=== PATIENT | female | born 1945 | race Caucasian/White ===

== ENCOUNTER 2019-10-17 14:41 | Outpatient (CLI) | payer MEDICARE, SELFPAY ==
--- NOTE | ~2019-10-17 | MM_ITS ---
EXAMINATION: MM screening elva BI w anand HISTORY: Screening mammogram TECHNIQUE: Craniocaudal and mediolateral oblique 3-D tomosynthesis images were obtained and synthetic 2-D images were generated. CAD analysis was submitted and interpreted. COMPARISON: 10/12/2018, 10/06/2017, 10/01/2016 bilateral digital screening mammogram examinations BREAST PARENCHYMAL COMPOSITION: There are scattered areas of fibroglandular density. FINDINGS: Scattered bilateral benign calcifications. There is no evidence of suspicious mass, calcifi cation, or architectural distortion to suggest malignancy in either breast. There has been no suspici ous interval change. IMPRESSION: 1. No mammographic evidence of malignancy. 2. Recommend routine screening mammography in one year. BI-RADS Category 2: Benign finding(s). Reviewed, dictated and finalized at location A. R PV INSTALLER
== END 2019-10-17 14:42 | disposition home or self-care (01) ==
LOC: ANHIMG 14:43
PROVIDERS: PCP Family Medicine; Visit Provider Obstetrics & Gynecology
DX: Z12.31 Encounter for screening mammogram for malignant neoplasm of breast (principal)
CPT/HCPCS: 77063; 77067

== ENCOUNTER → 2019-11-23 15:16 | Outpatient (CLI) | payer MEDICARE, SELFPAY ==
--- NOTE | ~2019-11-23 | XR_ITS ---
EXAMINATION: XR lumbar spine 2-3V DATE: 11/23/2019 15:44 INDICATION: Low back pain TECHNIQUE: Anteroposterior and lateral views of the lumbar spine, and cone-down lateral view of the l umbosacral junction were obtained. COMPARISON: None. FINDINGS: There is no fracture. Bone alignment is normal. There is severe loss of intervertebral disc space height from L2-3 through L5-S1. The vertebral body heights are maintained. Small degenerative osteophytes project from the anterior endplates of multiple vertebral bodies. There is severe lower l umbar facet osteoarthritis. No fracture is identified. There is calcification of the mitral annulus. IMPRESSION: 1. Severe lumbar spondylosis without acute findings. Reviewed, dictated and finalized at location A.
--- NOTE | ~2019-11-23 | XR_ITS ---
EXAMINATION: XR pelvis 1-2V INDICATION: Sacrococcygeal disorders not elsewhere classified TECHNIQUE: AP view of the pelvis is obtained. COMPARISON: None available FINDINGS: There is mild bilateral hip osteoarthritis. Bone alignment is normal. There is no fracture. Multiple phleboliths are noted in the pelvis. There is advanced lower lumbar spondylosis. IMPRESSION: 1. No acute osseous abnormality. Reviewed, dictated and finalized at location A.
== END ==
PROVIDERS: PCP Family Medicine; Visit Provider Family Medicine
DX: M54.5 Low back pain (principal); M53.3 Sacrococcygeal disorders, not elsewhere classified; M47.816 Spondylosis without myelopathy or radiculopathy, lumbar region
CPT/HCPCS: 72100; 72170

== ENCOUNTER 2020-10-24 13:48 | Outpatient (CLI) | payer MEDICARE, SELFPAY ==
--- NOTE | ~2020-10-24 | MM_ITS ---
EXAMINATION: MM screening elva BI w anand HISTORY: Screening TECHNIQUE: Craniocaudal and mediolateral oblique 3-D tomosynthesis images were obtained and synthetic 2-D images were generated. CAD analysis was submitted and interpreted. COMPARISON: Comparison to multiple prior studies sequentially, with oldest reviewed study dated 09/19. BREAST PARENCHYMAL COMPOSITION: There are scattered areas of fibroglandular density. FINDINGS: There is no evidence of suspicious mass, calcification, or architectural distortion to sugg est malignancy in either breast. There has been no suspicious interval change. IMPRESSION: 1. No mammographic evidence of malignancy. 2. Recommend routine screening mammography in one year. BI-RADS Category 1: Negative Reviewed, dictated and finalized at location A. ERTY MANAGEMENT INTERN
== END 2020-10-24 13:49 | disposition home or self-care (01) ==
LOC: ANHIMG 13:53
PROVIDERS: PCP Family Medicine; Visit Provider Obstetrics & Gynecology
DX: Z12.31 Encounter for screening mammogram for malignant neoplasm of breast (principal)
CPT/HCPCS: 77063; 77067

== ENCOUNTER 2020-11-06 08:50 | Outpatient (CLI) | payer MEDICARE, SELFPAY ==
--- NOTE | 2020-11-06 08:56 | ECHO_ITS ---
Patient Info Name: Trisha Sparrow Age: 75 years : 1945 Gender: Female Ht: 63 in Wt: 167 lbs BSA: 1.86 m2 BP: 131 / 92 mmHg Exam Date: 11/06/2020 9:36 AM Exam Location: [facility] Patient Status: Outpatient Admit Date: 11/06/2020 Staff Ordering Physician: Mejia Castro DO Tire Shop Mechanic: Lucero Glass RDCS Attending Provider: Mejia Castro DO Exam Type: CA echo doppler color flow Study Info Complete two-dimensional, color flow and Doppler transthoracic echocardiogram is performed. Summary 1. Complete two-dimensional, color flow and Doppler transthoracic echocardiogram is performed. 2. Left ventricular chamber dimension is normal. 3. Left ventricular systolic function is normal, estimated at 60-65%. 4. The left ventricular diastolic function is abnormal. 5. E/e' 15 is elevated. 6. Left atrial chamber dimension is severely enlarged. 7. There is mild aortic valve sclerosis. 8. The mitral valve has moderately calcified annulus. 9. There is mild to moderate mitral valve regurgitation. 10. There is mild to moderate tricuspid valve regurgitation. 11. No pulmonary hypertension, estimated pulmonary arterial systolic pressure is 38 mmHg. Left Ventricle E/e' 15 is elevated. Left ventricular chamber dimension is normal. Left ventricular systolic function is normal, estimated at 60-65%. The left ventricular diastolic function is abnormal. Right Ventricle Right ventricular chamber dimension is normal. Right ventricular systolic function is normal. Left Atria Left atrial chamber dimension is severely enlarged. Right Atria Right atrial chamber dimension is normal. Aortic Valve The aortic valve is trileaflet. There is mild aortic valve sclerosis. There is no aortic valve stenosis. There is no aortic valve regurgitation. Pulmonic Valve There is no pulmonic regurgitation. Mitral Valve The mitral valve has moderately calcified annulus. There is no mitral valve stenosis. There is mild to moderate mitral valve regurgitation. Tricuspid Valve There is mild to moderate tricuspid valve regurgitation. No pulmonary hypertension, estimated pulmonary arterial systolic pressure is 38 mmHg. Pericardium/Pleural There is no pericardial effusion. Inferior Vena Cava Normal inferior vena cava with >50% collapse upon inspiration consistent with normal right atrial pressure, 5 mmHg. Aorta The aortic root size at the sinus of Valsalva is normal. Left Ventricular Outflow Tract Name Value Normal LVOT 2D LVOT Diameter 1.6 cm LVOT Doppler LVOT Peak Gradient 2 mmHg LVOT Mean Gradient 1 mmHg LVOT VTI 12 cm LVOT VTI/AV VTI Ratio 0.5 LVOT Stroke Volume 22 ml LVOT CO 5.0 l/min LVOT CI 2.7 l/min/m2 Pulmonic Valve Name Value Normal
== END 2020-11-06 08:51 | disposition home or self-care (01) ==
PROVIDERS: PCP Family Medicine; Visit Provider Internal Medicine Cardiovascular Disease
DX: I50.40 Unspecified combined systolic (congestive) and diastolic (congestive) heart failure (principal); I34.0 Nonrheumatic mitral (valve) insufficiency; I36.1 Nonrheumatic tricuspid (valve) insufficiency
CPT/HCPCS: 93306

== ENCOUNTER 2021-10-29 16:03 | Outpatient (CLI) | payer MEDICARE, SELFPAY ==
--- NOTE | ~2021-10-29 | MM_ITS ---
EXAMINATION: MM screening elva BI w anand HISTORY: Screening mammogram TECHNIQUE: Craniocaudal and mediolateral oblique 3-D tomosynthesis images were obtained and synthetic 2-D images were generated. CAD analysis was submitted and interpreted. COMPARISON: October 24, 2020, October 17, 2019, October 12, 2018 bilateral screening mammogram exam inations BREAST PARENCHYMAL COMPOSITION: There are scattered areas of fibroglandular density. FINDINGS: Approximately 3.9 x 7.5 mm irregular opacity at the medial aspect of the left breast at mid depth on craniocaudal view. Diagnostic left mammogram is recommended, with ultrasound if required. Otherwise there is no evidence of suspicious mass, calcification, or architectural distortion to sugg est malignancy. There has been no other suspicious interval change. IMPRESSION: 1. Asymmetric irregular opacity at medial left breast at mid depth on CC view 2. Diagnostic left mammogram is recommended, with ultrasound if required BI-RADS Category 0: Incomplete: Needs additional imaging evaluation. Reviewed, dictated and finalized at location A. LIDDER
== END 2021-10-29 16:04 | disposition home or self-care (01) ==
LOC: ANHIMG 16:05
PROVIDERS: PCP Family Medicine; Visit Provider Obstetrics & Gynecology
DX: Z12.31 Encounter for screening mammogram for malignant neoplasm of breast (principal); R92.8 Other abnormal and inconclusive findings on diagnostic imaging of breast
CPT/HCPCS: 77063; 77067

== ENCOUNTER 2021-11-19 12:50 | Outpatient (CLI) | payer MEDICARE, SELFPAY ==
--- NOTE | ~2021-11-19 | MMUS_ITS ---
EXAMINATION: MM diagnostic elva LT w anand, US breast LT limited HISTORY: Left breast asymmetry on screening mammogram TECHNIQUE: Additional 3-D tomosynthesis images of the left breast were performed and synthetic 2-D im ages were generated. CAD analysis was submitted and interpreted. High resolution limited left breast ultrasound was performed. COMPARISON: 10/29/2021, 10/24/2020, 10/17/2019, 10/12/2018, 10/06/2017 FINDINGS: MAMMOGRAPHIC FINDINGS: There is a return to baseline fibroglandular appearance with spot compression of the left breast in t he area questioned on screening mammogram. ULTRASOUND: There is a 4 mm oval, circumscribed, parallel, hypoechoic mass with no internal vascularity and mild posterior acoustic shadowing at the 9:30 location 4 cm from the nipple. IMPRESSION: 1. Possible changes of the inner left breast related to prior excisional biopsy. 2. Recommend 6 month follow-up left diagnostic mammogram and ultrasound. BI-RADS category 3, probably benign findings. Reviewed, dictated and finalized at location A. IMPRESSION: 1. Possible changes of the inner left breast related to prior excisional biopsy . 2. Recommend 6 month follow-up left diagnostic mammogram and ultrasound. BI-RADS category 3, probably benign findings.
== END 2021-11-19 12:51 | disposition home or self-care (01) ==
PROVIDERS: PCP Family Medicine; Visit Provider Obstetrics & Gynecology
DX: R92.8 Other abnormal and inconclusive findings on diagnostic imaging of breast (principal)
CPT/HCPCS: 76642; 77061; 77065; G0279

== ENCOUNTER 2022-02-13 13:04 | Outpatient (CLI) | payer MEDICARE, SELFPAY | END 2022-02-13 13:05 | disposition home or self-care (01) | LOC: ANHAUDIO 13:05 | PROVIDERS: PCP Family Medicine; Visit Provider Family Medicine | DX: H90.3 Sensorineural hearing loss, bilateral (principal) | CPT/HCPCS: 92557; 92567 ==

== ENCOUNTER 2022-04-25 08:18 | Outpatient (CLI) | payer MEDICARE, SELFPAY ==
--- NOTE | ~2022-04-25 | US_ITS ---
US art doppler w press LE BI INDICATION: Peripheral vascular disease TECHNIQUE: Segmental pressures and plethysmographic and Doppler waveforms of the brachial and lower e xtremity arteries were obtained. COMPARISON: None. FINDINGS: Right and left brachial artery pressures of 150 to mm Hg and 157 mm Hg, respectively, are concordant (normal difference <= 30 mmHg). The right ankle-brachial index (PUNEET) is 1.04 (normal >= 0.9-1.0). The right great toe-brachial index (TBI) is 0.56 (normal >= 0.60). The left PUNEET is 1.11. The left TBI is 0.77. IMPRESSION: 1. Mildly diminished right toe brachial index measuring 0.56, consistent with mild peripheral arteria l disease. 2: Normal left ankle and toe brachial indices. Reviewed, dictated and finalized at location B. IMPRESSION: 1. Mildly diminished right toe brachial index measuring 0.56, consistent with m ild peripheral arterial disease. 2: Normal left ankle and toe brachial indices.
== END 2022-04-25 08:19 | disposition home or self-care (01) ==
PROVIDERS: PCP Family Medicine; Visit Provider Family Medicine
DX: I73.9 Peripheral vascular disease, unspecified (principal)
CPT/HCPCS: 93923

== ENCOUNTER 2022-06-04 09:53 | Outpatient (NON) | payer MEDICARE, SELFPAY | END 2022-06-04 09:54 | disposition home or self-care (01) | LOC: ANHLAB 09:54 | PROVIDERS: PCP Family Medicine; Visit Provider Nurse Practitioner Family | DX: B83.9 Helminthiasis, unspecified (principal) | CPT/HCPCS: 87177; 87209 ==

== ENCOUNTER 2022-06-17 11:00 | Outpatient (RCR) | payer MEDICARE, SELFPAY ==
--- NOTE | 2022-05-20 10:02 | PTOPEVAL1 ---
Assessment and note entered by Kelly Amin, PT, DPT Evaluation Information Assessment Status Evaluation Diagnosis L hip and lower back pain Onset chronic Subjective Information Pt reports pain in the L anterior groin pain. Pt states this has been going on for years and it does not feel like it is getting much worse. Pt states she can walk for about 2 mins, but this is limited by SOB rather than her hip. Pt states can cannot stand long enough to cook a meal but this is limited by LE swelling and they turn purple . Reported Pain Level Pain Score 0: Self Report Assessment PT Clinical Summary Trisha is a 77 y/o female who presents to therapy today for her initial evaluation with a diagnosis of L hip and lower back pain. Today she several factors that limit her just as much as her hip, if not more, including a-fib, peripheral neuropathy , and a skin condition that is not diagnosis. Today she demonstrates decreased hip ROM and decreased strength alva, the L > R. She demonstrates a L sided antalgic gait as well as a decreased gait speed, and stride length. Skilled physical therapy services are indicated to address the deficits noted above, to limit pain, and to improve functional mobility. Plan of Care Interventions Gait Training,Hot Pack/Cold Pack,Manual Therapy, Neuro Re-education,Patient/Caregiver Education, Therapeutic Activities,Therapeutic Exercise PT Services Indicated Yes Treatment Frequency and 1x/wk for 4 wks Duration These treatments will address the objective and functional deficits as defined above. The patient will be advanced safely and appropriately in order for the patient to progress towards his/her prior level of function. Additional exercises will be introduced and as well as a comprehensive home exercise program upon discharge, if needed, ?to ensure carryover of functional gains achieved in the clinic. This treatment plan has been reviewed and agreement upon by the patient.
--- NOTE | 2022-05-27 13:20 | PCPTNOTE ---
Patient did not show up for scheduled appointment this date. Called Pt's cell phone and left voicemail about missed appointment. Informed Pt of upcoming appointment on 06/04/22 @17:00.
--- NOTE | 2022-06-04 17:23 | PCPTNOTE ---
Patient did not show up for scheduled appointment this date. Called and left voicemail about missed appointment. Reminded Pt of upcoming appointment on next Thursday06/10/22 @ 15:30. Informed Pt this is her second N/S and we will be discharging Pt if she N/S's again per our N/S policy.
--- NOTE | 2022-06-10 16:02 | PCPTNOTE ---
Patient did not show up for scheduled appointment this date. Called and spoke to patient's and they thought her appointment was tomorrow.
--- NOTE | 2022-06-17 11:54 | PTOPDC ---
Assessment and note entered by Kelly Amin, PT, DPT Evaluation Information Assessment Status Evaluation Diagnosis L hip and lower back pain Onset chronic Subjective Information Pt states she is doing her exercises once a day. Pt states her hip is feeling better, she states sometimes she wakes up and there is no pain at all . Pt reports 50% improvement in overall symptoms. Reported Pain Level Pain Score 4: Self Report Assessment PT Clinical Summary Trisha presents to therapy today for her progress report following participation in her HEP. She no called, no showed 3 of 3 scheduled appointments in her prior POC. Today she demonstrates slow improvements in her hip strength and ROM. She demonstrates a decreased gait speed compared to her initial visit but attributes this to her heart condition. She was instructed in additional exercises this date and was told to perform these daily. She will be discharged at this time d/t poor attendance. Plan of Care Interventions Gait Training,Hot Pack/Cold Pack,Manual Therapy, Neuro Re-education,Patient/Caregiver Educati, Therapeutic Activities,Therapeutic Exercise Treatment Frequency and to be discharged Duration
== END 2022-06-17 15:04 | disposition home or self-care (01) ==
LOC: ANHPT 11:00
PROVIDERS: PCP Family Medicine; Referring Provider Orthopaedic Surgery; Visit Provider Orthopaedic Surgery
DX: M25.552 Pain in left hip (principal); M54.50 Low back pain, unspecified
CPT/HCPCS: 97110; 97112; 97161; 99199

== ENCOUNTER 2022-06-23 13:58 | Outpatient (CLI) | payer MEDICARE, SELFPAY ==
--- NOTE | ~2022-06-23 | MMUS_ITS ---
EXAMINATION: MM diagnostic elva LT w anand, US breast LT limited HISTORY: Follow-up left breast mass TECHNIQUE: Additional 3-D tomosynthesis images of the left breast were performed and synthetic 2-D im ages were generated. CAD analysis was submitted and interpreted. High resolution Limited left breast ultrasound was performed. COMPARISON: Comparison to multiple prior studies sequentially, with oldest reviewed study dated 10/06. BREAST PARENCHYMAL COMPOSITION: Breast composed of scattered areas of fibroglandular density FINDINGS: MAMMOGRAPHIC FINDINGS: There are no suspicious masses, calcifications or architectural distortion in the left breast to sugg est malignancy. ULTRASOUND: Limited left breast ultrasound: At 10:00, 5 cm from the nipple, there is a round hypoechoic mass with posterior shadowing measuring 4 x 4 x 3 mm, stable compared with prior study. There is a 2 mm cyst a t 8:00, 10 cm from the nipple. IMPRESSION: 1. Stable probable benign left breast mass at 10:00, 5 cm from the nipple measuring 4 mm maximum dime nsion. 2. Recommend 6 month follow-up Limited left breast ultrasound and diagnostic bilateral mammogram. BI-RADS category 3, probably benign findings. Reviewed, dictated and finalized at location A. IMPRESSION: 1. Stable probable benign left breast mass at 10:00, 5 cm from the nipple measu ring 4 mm maximum dimension. 2. Recommend 6 month follow-up Limited left breast ultrasound and diagnostic bi lateral mammogram. BI-RADS category 3, probably benign findings.
== END 2022-06-23 13:59 | disposition home or self-care (01) ==
LOC: ANHIMG 13:59
PROVIDERS: PCP Family Medicine; Visit Provider Obstetrics & Gynecology
DX: R92.8 Other abnormal and inconclusive findings on diagnostic imaging of breast (principal)
CPT/HCPCS: 76642; 77061; 77065; G0279

== ENCOUNTER 2022-07-11 12:03 | Outpatient (CLI) | payer MEDICARE, SELFPAY ==
[2022-07-20 19:38] LABS: Calprotectin, Stool 11 mcg/g
== END 2022-07-11 12:04 | disposition home or self-care (01) ==
PROVIDERS: PCP Family Medicine; Visit Provider Nurse Practitioner Family
DX: R19.7 Diarrhea, unspecified (principal)
CPT/HCPCS: 83993; 87045; 87269; 87427

== ENCOUNTER 2022-11-18 03:59 | Inpatient (IN) | payer MEDICARE, SELFPAY ==
[2022-11-18] VITALS (19 sets, daily range): BP systolic 106–148; BP diastolic 63–101; PULSE 88–132; RESP 12–22; TEMP 36–37; O2SAT 95–100; BMI 27.8
--- NOTE | ~2022-11-18 | XR_ITS ---
EXAMINATION: XR chest 1V portable INDICATION: Cough, COVID 19 positive TECHNIQUE: Portable AP chest at 0925 hours COMPARISON: 11/18/2022 FINDINGS: The lungs are free of acute opacities. No pleural effusion or pneumothorax. The heart size is normal. There is calcification of the mitral annulus. IMPRESSION: 1. No acute cardiopulmonary abnormality. Reviewed, dictated and finalized at location L.
--- NOTE | ~2022-11-18 | CT_ITS ---
Non-contrast Head CT History: Head injury Technique: Axial non-contrast imaging of the brain was performed. Dose reduction technique was used on this scan by utilizing automated exposure control and iterative reconstruction technique. The dose -length product (DLP) was 605.33 mGy-cm. Findings: There is no evidence of intracranial hemorrhage, mass lesion, or acute infarct. There is c hronic encephalomalacia in the high right parietal lobe. Probable small focal chronic infarct in the left cerebellum.. The ventricles and subarachnoid spaces are normal in size. The calvarium appears normal. The visualized paranasal sinuses and mastoid air cells are clear. Impression: No acute abnormality seen. Chronic infarcts in the right parietal lobe and left cerebellum. Reviewed, dictated and finalized at [facility]. Impression: No acute abnormality seen. Chronic infarcts in the right parietal lobe and left cerebellum.
--- NOTE | ~2022-11-18 | CT_ITS ---
Noncontrast CT scan of the cervical spine Technique: Multiple contiguous axial [address] images of the cervical spine were obtained and rec onstructed in 2D sagittal and coronal planes on the acquisition scanner. Dose reduction technique was used on this scan by utilizing automated exposure control, adjustment of the mA and/or kV according to patient size. Clinical History: Pain Findings: No fracture identified. Minimal grade 1 anterolisthesis of C4 over C5 noted. There is advan rodrick degenerative disc narrowing at C5-C6, C6-C7, and C7-T1, with uncovertebral degenerative changes a t these levels. There is fusion of the right C2-C3 facet joint. There are extensive facet joint degen erative changes throughout the remainder of the cervical spine. There is significant left neural fora [place]renton narrowing at C3-C4. There is bilateral neural foraminal narrowing at C4-C5, C5-C6, and C6-C7. T here is probable mild central canal stenosis at C5-C6. No prevertebral soft tissue swelling. There are multiple nodules in the visualized lung apices, largest at the left lung apex measuring 8 m m in diameter. Impression: No fracture. Minimal grade 1 anterolisthesis of C4 over C5. Advanced degenerative spondylosis, as detailed above. Multiple nodules at the lung apices, as detailed above, nonspecific. Consider follow-up dedicated taco st CT to more completely evaluate the chest. Otherwise, according to Fleischner Society criteria, for a low-risk patient, follow-up CT scan at 3-6 months recommended, then consider 18-24 month follow-up CT. For a high-risk patient, follow-up CT scans at 3-6 months and 18-24 months are recommended. Reviewed, dictated and finalized at location . Impression: No fracture. Minimal grade 1 anterolisthesis of C4 over C5. Advanced degenerative spondylosis, as detailed above. Multiple nodules at the lung apices, as detailed above, nonspecific. Consider f ollow-up dedicated chest CT to more completely evaluate the chest. Otherwise, a ccording to Fleischner Society criteria, for a low-risk patient, follow-up CT s can at 3-6 months recommended, then consider 18-24 month follow-up CT. For a hi gh-risk patient, follow-up CT scans at 3-6 months and 18-24 months are recommen ded.
--- NOTE | ~2022-11-18 | XR_ITS ---
Left ankle Technique: AP, oblique, and lateral views were obtained. Clinical History: Pain Findings: There is an oblique, traumatic, fracture of the distal fibular shaft, with the fracture freddy tered approximately 6.3 cm proximal to the tip of the lateral malleolus. There is displacement up to approximately 9 mm. There is a transverse traumatic fracture of the medial malleolus, with displaceme nt by up to at least approximately 1.5 cm. There is apparent marked widening of the ankle mortise ant eromedially, best evident on the oblique view. Questionable very subtle posterior malleolus fracture. There is diffuse soft tissue swelling about the ankle, especially anteriorly. Impression: Significantly displaced fractures of the medial malleolus and distal fibular shaft, as detailed above . Questionable subtle posterior malleolus fracture. Consider CT to better confirm or exclude posterior malleolus fracture as indicated. Marked widening of the ankle mortise anteromedially, best evident on oblique view. Reviewed, dictated and finalized at location . Impression: Significantly displaced fractures of the medial malleolus and distal fibular sh aft, as detailed above. Questionable subtle posterior malleolus fracture. Consider CT to better confirm or exclude posterior malleolus fracture as indicated. Marked widening of the ankle mortise anteromedially, best evident on oblique vi ew.
--- NOTE | ~2022-11-18 | XR_ITS ---
EXAMINATION: XR surgery orthopedic DATE: 11/20/2022 14:55 INDICATION: ORIF left ankle fracture TECHNIQUE: 3 fluoroscopic images of the left ankle were obtained during procedure performed by Dr. Lyle carrington. Radiologist was not present for the imaging or procedure. The amount of fluoroscopy time used dur ing this procedure was 0.6 minutes. COMPARISON: 11/18/2022 FINDINGS: Interval reduction and internal lateral plate and screw fixation of an oblique fracture of the distal left fibular metadiaphysis which is in near-anatomic alignment. Mildly comminuted transverse fractur e of the medial malleolus remains unfixed and with mild residual distraction. Ankle mortise remains c ongruent with mild joint space narrowing at the tibiotalar articulation. IMPRESSION: 1. Near-anatomic alignment post reduction and lateral plate and screw fixation of fractures of the di stal left fibular metadiaphysis. 2. Mild residual distraction of an unfixed mildly comminuted fracture of the medial malleolus. Reviewed, dictated and finalized at location L. IMPRESSION: 1. Near-anatomic alignment post reduction and lateral plate and screw fixation of fractures of the distal left fibular metadiaphysis. 2. Mild residual distraction of an unfixed mildly comminuted fracture of the me dial malleolus.
--- NOTE | ~2022-11-18 | XR_ITS ---
Portable chest x-ray Comparison: 09/30/2010 Clinical History: Cough Findings: Lungs are clear, without focal consolidation or pleural effusion. Cardiomediastinal silho uette is stable. Extensive mitral annular calcifications noted. Bones and soft tissues are unremarkab le. Impression: Clear lungs. Reviewed, dictated and finalized at location . Impression: Clear lungs.
--- NOTE | ~2022-11-18 | CT_ITS ---
EXAMINATION:CT diagnostic chest wo con DATE: 11/19/2022 11:31 INDICATION: Lung nodules. TECHNIQUE: Computed tomography (CT) of the chest was performed without intravenous contrast. Automate d exposure control and iterative reconstruction technique were employed. The dose-length product (DLP ) was 176.30 mGy-cm. COMPARISON: CT cervical spine 11/18/2022 FINDINGS: There is mild atelectasis bilaterally. There are clusters of nodules at the lung apices atif suring up to 9 mm on the left. Calcified bilateral pulmonary nodules are consistent with old granulom atous disease. No pleural effusion. The heart size is normal. There are coronary artery calcification s. There are no pathologically enlarged lymph nodes. There is severe cervical and thoracic spondylosi s. There is mild anterior wedging of T2 vertebral body, likely chronic. There is a compression fractu re of T9 with 1/5 loss of height. There is a compression fracture of T10 with less than 1/5 loss of h eight. There is a compression fracture of L1 with 2/5 loss of height. IMPRESSION: 1. Pulmonary nodules at the lung apices, most likely granulomatous disease. Noncontrast low-dose ches t CT is recommended in 3 months. 2. Compression fractures of T9, T10, and L1, likely acute or subacute. Reviewed, dictated and finalized at location A. IMPRESSION: 1. Pulmonary nodules at the lung apices, most likely granulomatous disease. Non contrast low-dose chest CT is recommended in 3 months. 2. Compression fractures of T9, T10, and L1, likely acute or subacute.
--- NOTE | 2022-11-18 04:15 | ECG_ITS ---
Measurements Intervals [employer] Rate: 124 P: GA: 0 QRS: 28 QRSD: 86 T: 53 QT: 326 QTc: 470 Interpretive Statements ATRIAL FIBRILLATION WITH RAPID VENTRICULAR RESPONSE VENTRICULAR PREMATURE COMPLEXES EARLY PRECORDIAL R/S TRANSITION BORDERLINE ST-T WAVE ABNORMALITY- ANTEROLAT/HIGH LAT LEADS BASELINE ARTIFACT- I, III, AVL ABNORMAL ECG COMPARED TO ECG 06/28/2019 12:27:56 NO SIGNIFICANT CHANGES Electronically Signed On 11-18-2022 6:40:40 CDT by Mejia Castro D.O.
[2022-11-18] MEDS: METOPROLOL TARTRATE INJ 5 MG/5 ML VIAL IV PUSH (04:34)
[2022-11-18 04:41] LABS: Basophils Percent Auto 0.2 % (0.2-1.2); Hemoglobin 15.2 g/dL (12.0-15.0); Immature Granulocyte Absolute 0.05 K/mm3 (0.00-0.031); Immature Granulocyte Percent A 0.5 % (0-0.5); Lymphocytes Absolute Auto 0.38 K/mm3 (0.9-3.2); Lymphocytes Percent Auto 3.5 % (18.3-44.2); Mean Corpuscular HGB Conc 34.5 g/dl (32-36); Mean Corpuscular Hemoglobin 34.8 pg (26-34); Mean Corpuscular Volume 100.7 fl (80-100); Mean Platelet Volume 9.9 fl (7.4-10.4); Monocytes Absolute Auto 0.8 K/mm3 (0.1-0.6); Monocytes Percent Auto 7.5 % (2.6-8.5); Neutrophils Absolute Auto 9.5 K/mm3 (1.3-6.7); Neutrophils Percent Auto 88.3 % (45.5-73.1); Platelet Count Result 201 k/mm3 (150-375); Red Blood Count 4.37 M/mm3 (4.2-5.4); Red Cell Distribution Width 11.9 % (11.5-14.5); White Blood Count 10.8 K/mm3 (4.5-10.0)
[2022-11-18 04:53] LABS: INR 1.2; Prothrombin Time 15.2 Seconds (11.1-14.7)
[2022-11-18 04:54] LABS: Partial Thromboplastin Time 31.6 SECONDS (22.3-36.8)
[2022-11-18 04:55] LABS: Alanine Aminotransferase 31 U/L (6-35); Albumin Level 4.4 g/dL (3.5-5.1); Alkaline Phosphatase 108 U/L (38-126); Anion Gap 10 mmol/L (8-16); Aspartate Amino Transferase 70 U/L (14-36); Bilirubin,Total 0.9 mg/dL (0.2-1.3); Blood Urea Nitrogen 17 mg/dL (7-17); Carbon Dioxide 22 mmol/L (22-30); Chloride 101 mmol/L (98-107); Estimated Glomerular Filt Rate 40; Glucose 229 mg/dL (65-110); Magnesium 1.5 mg/dL (1.6-2.3); Potassium 3.7 mmol/L (3.4-5.0); Sodium 133 mmol/L (137-145)
[2022-11-18 04:58] LABS: Anisocytosis 1+ (NORMAL); Hypochromasia 1+ (NORMAL); Platelet Estimate Adequate (Adequate); Schistocytes None Seen (NORMAL)
[2022-11-18 05:07] LABS: NT Pro B Type Natriuretic Pept 1920 pg/mL (19.9-100); Troponin I 0.024 ng/mL (0.000-0.034)
--- NOTE | 2022-11-18 05:26 | ED.GENADULT ---
HPI - General Adult General Chief complaint: Fall Stated complaint: GLV, AFIB/RVR Time Seen by Provider: 11/18/22 04:08 History of Present Illness HPI narrative: 77-year-old female who presents the emergency department with chief complaint of fall. Patient was found on the ground with swelling in her left ankle the patient is on Xarelto which she takes for atrial fibrillation. The patient currently pain bilateral ankles patient denies headache or known head injury but is unsure 100%. Patient denies nausea vomiting patient does report that her heart is beating fast and feels as though her A-fib is acting up. Related Data Home Medications Medication Instructions Recorded Confirmed cyclosporine 0.05 % eye drops in a 1 drop ophthalmic (eye) Q12H 07/19/19 10/31/22 dropperette (Restasis) fexofenadine 60 mg tablet 30 mg PO Q12H 07/19/19 10/31/22 nitroglycerin 0.4 mg sublingual 0.4 mg sublingual Q5M PRN 07/19/19 10/31/22 tablet Allergies Allergy/AdvReac Type Severity Reaction Status Date / Time amoxicillin Allergy Intermediate Rash Verified 11/18/22 04:35 clavulanic acid Allergy Intermediate Rash Verified 11/18/22 04:35 erythromycin base Allergy Unknown Unknown Verified 11/18/22 04:35 meperidine Allergy Unknown Unknown Verified 11/18/22 04:35 Penicillins Allergy Unknown Unknown Verified 11/18/22 04:35 Review of Systems Review of Systems: A 10 system review of systems was completed on the patient and is negative except for what is stated in the HPI. Nursing and ancillary documentation was reviewed. [facility] Past Medical History Medical History Altered bowel habits Arthralgia of hands, bilateral Bilateral carotid artery disease Depression Essential hypertension Heart disease Localized edema Lung nodule Lymphedema Obesity (BMI 30-39.9) Other and unspecified hyperlipidemia Other hyperlipidemia Peripheral neuropathy PVD (peripheral vascular disease) Shortness of breath Stroke Tenesmus (rectal) Surgical History Surgical History H/O: hysterectomy History of adenoidectomy History of back surgery History of bilateral knee replacement (~2002) jb 2002 History of hand surgery Family History Family History Mother Diabetes mellitus Cerebrovascular accident Family history of dementia, Onset Age: 80 Father Family history of congestive heart failure, Onset Age: 76 Other Family history of arthritis Family history of coronary artery disease Family history of gout Family history of kidney stones Family history of mental disorder Hypertension Social History Social History Smoking status: Never smoker Second hand tobacco smoke exposure: No Alcohol intake: never Substance use: never Substance use type: does not use Lack of Transportation: No Lack of Food: Never True Current Housing: I Have Housing Concerned About Future Housing: No Difficulty Paying Gas/Electric Bills: No Difficulty Paying for Meds: No Currently Unemployed: No Education: Master's Degree or Higher Difficulty w/ Childcare or Family Care: No Living arrangements: with family Occupation/Education: retired Gender identity (if verbalized by the patient): Female Sexual Orientation (if Verbalized by the Patient): Straight or Heterosexual Spiritual care concerns: No Agree to blood products: Yes Exam Narrative: GENERAL: Well-appearing, well-nourished, and in no acute distress. HEAD: Normocephalic, atraumatic. EYES: PERRLA and EOMI. ENT: Nares clear, no rhinorrhea or epistaxis. Mucous membranes moist. NECK: Supple. CHEST: Clear to auscultation. No respiratory distress. HEART: Tachycardic irregular rate and rhythm. No murmur heard.
[2022-11-18] MEDS: dilTIAZem HCl INJ 25 MG/5 ML VIAL 20 MG IV PUSH (05:55)
[2022-11-18] MEDS: MAGNESIUM SULF 2 GM/WATER 50ML 2 GM/50 ML BAG IVPB (05:56)
[2022-11-18] MEDS: dilTIAZem 100 MG/100 ML 100 MG/100 ML BAG IV CONT (05:58)
--- NOTE | 2022-11-18 06:35 | PC.NURSE ---
PT. R arm became flush, and warm to touch after Cardizem drip. EVELYN RN to stop diltiazem due to pt. possible reaction. pt. rate has been controlled at this time as well
--- NOTE | 2022-11-18 07:31 | PC.NURSE ---
Attempted to call report to IMU.
--- NOTE | 2022-11-18 07:34 | PC.NURSE ---
Report called to SLY Aranda.
--- NOTE | 2022-11-18 07:43 | PC.NURSE ---
Three hour troponin drawn and sent.
--- NOTE | 2022-11-18 08:15 | ADMGEN ---
This patient, Trisha Sparrow, was admitted to IMU Room 200-01. Patient/family oriented to hospital policies and general routines including ID bracelet, bed and alarms, visiting hours, pain management, procedures, bathroom and other care routines, personal items, smoking policy, room service/diet, and visiting hours. Information on how to activate the Rapid Response Team has been discussed. Patient/Family are encouraged to report perceived risks to care and to ask questions if they do not understand what they are told or what they should do.
[2022-11-18 08:20] LABS: Troponin I 0.036 ng/mL (0.000-0.034)
[2022-11-18] MEDS: SODIUM CHLORIDE 0.9% IV 1,000 ML 125 ML IV CONT (09:58)
--- NOTE | 2022-11-18 11:42 | PM.IMHP ---
H&P: HPI History of Present Illness Date/Time: 11/18/22 11:42 Chief Complaint: Status post fall Narrative: 77-year-old female with past medical history significant for coronary artery disease, peripheral vascular disease, bilateral carotid artery disease status post R. CEA, AFib on Xarelto, neuropathy, hyperlipidemia, hypertension and a history of a CVA is presenting status post fall. The patient states that she was taking a shower and seated on her shower chair. The next thing she remembers is waking up on the ground in an odd position with her legs bunched up against the wall. She then crawled over to the bathroom door to let her in so he could help her get up. They then called EMS to take her to the hospital. In the ER, she was found to be in AFib with RVR and started on a Cardizem bolus + drip. This was weaned off shortly after. X-rays of her lower extremities showed a fracture of the tibia and fibula on the left. Right ankle x-rays nonacute. Upon chart review, she was seen by Cardiology October 31, 2022 for worsening orthopnea as well as dyspnea on exertion. She was found to be euvolemic in the office and no changes were made to her medication regimens. 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, controlled, with complications Dry eyes due to decreased tear production Essential hypertension Excoriation (skin-picking) disorder Heart disease Hypothyroidism, unspecified Left leg pain Localized edema Lung nodule Lymphedema Mixed hyperlipidemia Obesity (BMI 30-39.9) Other and unspecified hyperlipidemia Other hyperlipidemia Peripheral neuropathy Peripheral neuropathy, idiopathic PVD (peripheral vascular disease) Shortness of breath Stroke Tenesmus (rectal) Vitamin D deficiency Surgical History Surgical History H/O: hysterectomy History of adenoidectomy History of back surgery History of bilateral knee replacement (~2002) jb 2002 History of hand surgery Family History Family History Mother Diabetes mellitus Cerebrovascular accident Family history of dementia, Onset Age: 80 Father Family history of congestive heart failure, Onset Age: 76 Other Family history of arthritis Family history of coronary artery disease Family history of gout Family history of kidney stones Family history of mental disorder Hypertension Social History Social History Smoking status: Never smoker Second hand tobacco smoke exposure: No Alcohol intake: never Substance use: never Substance use type: does not use Lack of Transportation: No Lack of Food: Never True Current Housing: I Have Housing Concerned About Future Housing: No Difficulty Paying Gas/Electric Bills: No Difficulty Paying for Meds: No Currently Unemployed: No Education: Master's Degree or Higher Difficulty w/ Childcare or Family Care: No Living arrangements: with family Occupation/Education: retired Gender identity (if verbalized by the patient): Female Sexual Orientation (if Verbalized by the Patient): Straight or Heterosexual Spiritual care concerns: No Agree to blood products: Yes Meds Home Medications and Allergies Home Medications Medication Instructions Recorded Confirmed Type atorvastatin 20 mg tablet 20 mg PO DAILY #90 tabs 03/
[2022-11-18] MEDS: FUROSEMIDE 40 MG TABLET PO (13:09)
[2022-11-18] MEDS: METOPROLOL SUCCINATE EXT REL 50 MG TABCR PO (13:10)
[2022-11-18 13:24] LABS: Troponin I 0.045 ng/mL (0.000-0.034)
[2022-11-18 15:42] LABS: Appearance Urine Clear (Clear); Bacteria Urine None Seen /hpf; Bilirubin Urine Negative (Negative); Blood Urine Trace (Negative); Color Urine Yellow (Yellow); Glucose Urine UA Negative (Negative); Ketones Urine Negative (Negative); Leukocyte Esterase Ur Negative LEU/UL (Negative); Nitrate Urine Negative (Negative); Protein Urine 1+ mg/dL (Negative); RBC Urine 0-2 /hpf (0-2); Specific Grav Ur 1.017 (1.001-1.035); Squamous Epithelial Cell Urine None seen /hpf (Few); Urobilinogen Urine 0.2 mg/dL (<2.0); WBC Urine 0-5 /hpf
[2022-11-18 15:45] LABS: Add Urine Microscopic? YES
--- NOTE | 2022-11-18 16:03 | PM.CNOR ---
Assessment and Plan Assessment and plan (1) Bimalleolar fracture of left ankle: Qualifiers: Encounter type: initial encounter Fracture type: closed Qualified Code(s): S82.842A - Displaced bimalleolar fracture of left lower leg, initial encounter for closed fracture Code(s): S82.842A - Displaced bimalleolar fracture of left lower leg, initial encounter for closed fracture Status: Acute Plan 77-year-old female with unstable left ankle fracture. Tentatively planning on fixing this on November 20. Xarelto has been held. He will be restarted after surgery. NPO after midnight Thursday night. Risks and potential complications were discussed in detail and questions answered. History of Present Illness HPI Consult date: 11/18/22 Consult reason: fracture Chief complaint: Fall Left Ankle Fracture/A Fib RVR Narrative: This document created with [id number] technology and is subject to door attendant irregularities. 69-year-old female who fell at home overnight suffering a displaced left bimalleolar ankle fracture. She was reduced, splinted and admitted. Also has atrial fibrillation with RVR. She is going to need medical clearance prior to surgery. Review of Systems Constitutional: Constitutional: Reports no additional constitutional complaints, Denies excessive sweating and Denies fatigue Eyes: Eyes: Reports no additional eye complaints ENT: Reports system reviewed and no additional complaints, except as documented Cardiovascular: Cardiovascular: Reports as per HPI, Denies chest pain at rest and Denies dyspnea Respiratory: Respiratory: Reports no additional respiratory complaints and Denies dyspnea Gastrointestinal: Gastrointestinal: Reports no additional gastrointestinal complaints Musculoskeletal: Musculoskeletal: Reports as per HPI Integumentary/Breasts: Skin/Breast: Reports system reviewed and no additional complaints, except as docu Neurologic: Reports as per HPI Endocrine: Endocrine: Denies excessive sweating and Denies fatigue Hematologic/Lymphatic: Hematologic/Lymphatic: Denies easy bleeding and Denies easy bruising PMFSH Past Medical History Medical History (Updated 11/18/22 @ 16:06 by Aaron Fisher MD) Arthralgia of hands, bilateral Atrial fibrillation with RVR Atrophic vaginitis Bilateral carotid artery disease Bilateral carotid artery stenosis Bimalleolar fracture of left ankle Chronic left shoulder pain Cubital tunnel syndrome on left Depression 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, controlled, with complications Dry eyes due to decreased tear production Essential hypertension Excoriation (skin-picking) disorder Heart disease Hypothyroidism, unspecified Left leg pain Localized edema Lung nodule Lymphedema Mixed hyperlipidemia Obesity (BMI 30-39.9) Other and unspecified hyperlipidemia Other hyperlipidemia Peripheral neuropathy Peripheral neuropathy, idiopathic PVD (peripheral vascular disease) Shortness of breath Stroke Tenesmus (rectal) Vitamin D deficiency Surgical History Surgical History H/O: hysterectomy History of adenoidectomy History of back surgery History of bilateral knee replacement (~2002) jb 2002 History of hand surgery Family History Family History Mother Diabetes mellitus Cerebrovascular accident Family history of dementia, Onset Age: 80 Father Family history of congestive heart failure, Onset Age: 76 Other Family history of arthritis Family history of coronary artery disease Family history of gout Family history of kidney stones Family history of mental disorder Hypertension Social History Social History Smoking status: Never smoker Second hand tobacco smoke exposure: No Alcohol intake: never Substance use
[2022-11-18] MEDS: RIVAROXABAN 20 MG TABLET PO (19:08)
[2022-11-19] VITALS (13 sets, daily range): BP systolic 100–136; BP diastolic 59–74; PULSE 82–131; RESP 16–20; TEMP 36.3–37.3; O2SAT 95–100
--- NOTE | 2022-11-19 | ECHO_ITS ---
Patient Info Name: Trisha Sparrow Age: 77 years : 1945 Gender: Female Ht: 63 in Wt: 157 lbs BSA: 1.80 m2 HR: 106 bpm BP: 108 / 59 mmHg Technical Quality: Fair Exam Date: 11/19/2022 1:29 PM Exam Location: [facility] Patient Status: Inpatient Admit Date: 11/18/2022 Staff Ordering Physician: Mejia Castro DO Tenterer: Elias Liao RDCS, RT Attending Provider: Tawanda Azevedo MD Referring Physician: Matthew RAMIREZ; Exam Type: CA echo doppler color flow Study Info Indications - elevated troponin, afib Complete two-dimensional, color flow and Doppler transthoracic echocardiogram is performed. Strain analysis performed. Summary 1. Complete two-dimensional, color flow and Doppler transthoracic echocardiogram is performed. 2. Left ventricular chamber dimension is normal. 3. Left ventricular systolic function is normal, estimated at 60-65%. 4. There is mild concentric increased left ventricular wall thickness. 5. The left ventricular diastolic function is abnormal. 6. E/e' 10 is mildly elevated. 7. Global longitudinal strain is abnormal at -8.3%. 8. Right ventricular systolic function is reduced based on abnormal TAPSE 1.1 cm. 9. Left atrial chamber dimension is mildly enlarged. 10. Right atrial chamber dimension is mildly enlarged. 11. There is mild aortic valve sclerosis. 12. The mitral valve has severely calcified annulus. 13. There is mild to moderate mitral valve regurgitation. 14. There is mild to moderate tricuspid valve regurgitation. 15. No pulmonary hypertension, estimated pulmonary arterial systolic pressure is 31 mmHg. Left Ventricle E/e' 10 is mildly elevated. Global longitudinal strain is abnormal at -8.3%. Left ventricular chamber dimension is normal. Left ventricular systolic function is normal, estimated at 60-65%. There is mild concentric increased left ventricular wall thickness. The left ventricular diastolic function is abnormal. Right Ventricle Right ventricular systolic function is reduced based on abnormal TAPSE 1.1 cm. Right ventricular chamber dimension is not well visualized. Left Atria Left atrial chamber dimension is mildly enlarged. Right Atria Right atrial chamber dimension is mildly enlarged. Aortic Valve The aortic valve is trileaflet. There is mild aortic valve sclerosis. There is no aortic valve stenosis. There is no aortic valve regurgitation. Pulmonic Valve There is no pulmonic regurgitation. Mitral Valve The mitral valve has severely calcified annulus. There is no mitral valve stenosis. There is mild to moderate mitral valve regurgitation. Tricuspid Valve There is mild to moderate tricuspid valve regurgitation. No pulmonary hypertension, estimated pulmonary arterial systolic pressure is 31 mmHg. Pericardium/Pleural There is no pericardial effusion. Inferior Vena Cava Normal inferior vena cava with >50% collapse upon inspiration consistent with normal right atrial pressure, 5 mmHg. Aorta The aortic root size at the sinus of Valsalva is normal. Left Ventricular Outflow Tract Name Value Normal LVOT 2D LVOT Diameter 2.0 cm LVOT Doppler
[2022-11-19 04:09] LABS: Basophils Percent Auto 0.5 % (0.2-1.2); Eosinophils Percent Auto 0.2 % (0-4.4); Hematocrit 42.2 % (37.0-47.0); Hemoglobin 14.6 g/dL (12.0-15.0); Immature Granulocyte Absolute 0.01 K/mm3 (0.00-0.031); Immature Granulocyte Percent A 0.2 % (0-0.5); Lymphocytes Percent Auto 21.6 % (18.3-44.2); Mean Corpuscular HGB Conc 34.6 g/dl (32-36); Mean Corpuscular Hemoglobin 34.4 pg (26-34); Mean Corpuscular Volume 99.3 fl (80-100); Mean Platelet Volume 9.6 fl (7.4-10.4); Monocytes Percent Auto 18.3 % (2.6-8.5); Neutrophils Absolute Auto 3.3 K/mm3 (1.3-6.7); Neutrophils Percent Auto 59.2 % (45.5-73.1); Platelet Count Result 185 k/mm3 (150-375); Red Blood Count 4.25 M/mm3 (4.2-5.4); Red Cell Distribution Width 11.9 % (11.5-14.5); White Blood Count 5.6 K/mm3 (4.5-10.0)
[2022-11-19 04:17] LABS: Hemoglobin A1C 6.6 % (<5.7)
[2022-11-19 04:47] LABS: Alanine Aminotransferase 46 U/L (6-35); Albumin Level 3.9 g/dL (3.5-5.1); Alkaline Phosphatase 89 U/L (38-126); Anion Gap 7 mmol/L (8-16); Aspartate Amino Transferase 115 U/L (14-36); Bilirubin,Total 0.7 mg/dL (0.2-1.3); Blood Urea Nitrogen 17 mg/dL (7-17); Calcium 8.4 mg/dL (8.4-10.2); Carbon Dioxide 31 mmol/L (22-30); Chloride 97 mmol/L (98-107); Cholesterol 124 mg/dL (0-200); Estimated CRCL calculation 43 ml/min; Estimated Glomerular Filt Rate > 60; Glucose 140 mg/dL (65-110); HDL Direct 32 mg/dL; LDL Cholesterol Direct 62 mg/dL; Potassium 3.2 mmol/L (3.4-5.0); Sodium 135 mmol/L (137-145); Triglycerides 135 mg/dL (<150)
--- NOTE | 2022-11-19 05:00 | ECG_ITS ---
Measurements Intervals [place] Rate: 114 P: CA: 0 QRS: 62 QRSD: 84 T: 61 QT: 328 QTc: 453 Interpretive Statements ATRIAL FIBRILLATION WITH RAPID VENTRICULAR RESPONSE ABNORMAL ECG COMPARED TO ECG 11/18/2022 04:07:21 HEART RATE HAS DECREASED Electronically Signed On 11-19-2022 9:31:10 CDT by Mejia Castro D.O.
[2022-11-19 05:33] LABS: Folic Acid 10.4 ng/mL (2.76->20)
[2022-11-19] MEDS: LEVOTHYROXINE SODIUM 25 MCG TABLET PO (06:31)
[2022-11-19] MEDS: DULoxetine HCL 60 MG CAPSULE.DR PO (08:41)
[2022-11-19] MEDS: METOPROLOL SUCCINATE EXT REL 50 MG TABCR PO (08:41)
[2022-11-19] MEDS: ZINC SULFATE 220 MG CAPSULE PO (08:41)
[2022-11-19] MEDS: CYANOCOBALAMIN 1,000 MCG TABLET 5000 MCG PO (08:41)
[2022-11-19] MEDS: ATORVASTATIN 20 MG TABLET PO (08:41)
[2022-11-19] MEDS: ASCORBIC ACID 500 MG TABLET PO (08:41)
[2022-11-19 09:05] LABS: Creatine Kinase 1044 U/L (30-135)
--- NOTE | 2022-11-19 09:54 | PM.IMPN ---
Progress Note: A&P Assessment and Plan (1) Syncopal episodes: Code(s): R55 - Syncope and collapse Status: Acute Assessment and Plan: Patient with syncopal episode in the shower. She probably has retrograde amnesia. Head CT showing chronic CVAs but no acute findings. Cervical spine CT showing no fracture but showing multiple nodules at the lung apices. No hx of cancer but hx breast mass. No pathology noted. Check CT chest. Consider further neuro imaging if metastatic cancer is of concern. TSH and B12 normal here. Probably orthostatic HoTN causing the fall. Unable to do orthostatic vital signs at this time. Follow closely as we adjust her meds. (2) Atrial fibrillation: Code(s): I48.91 - Unspecified atrial fibrillation Status: Acute Assessment and Plan: Patient has chronic AFib and now with RVR. TSH normal. Metoprolol has been restarted. Xarelto also resumed last night but will hold now for possible surgical intervention. Advance metoprolol. (3) Ankle fracture, left: Code(s): S82.892A - Other fracture of left lower leg, initial encounter for closed fracture Status: Deleted Assessment and Plan: Patient with left ankle pain with xray showing displaced fractures of the medial malleolus and distal fibular shaft with possible subtle posterior malleolus fracture. Related to the syncopal episode and fall. Pain control. Appreciate orthopedic surgery consult. Cardiology consultation ordered. Plan for surgical repair. (4) Fall: Code(s): W19.XXXA - Unspecified fall, initial encounter Status: Acute Assessment and Plan: As above (5) Diastolic heart failure: Code(s): I50.30 - Unspecified diastolic (congestive) heart failure Status: Acute Assessment and Plan: Echo in November 2020 showing EF 60-65% with abnormal diastolic function and mild-mod MR and TR. Clinically she is euvolemic. Lasix given once yesterday. As above (6) Elevated troponin: Code(s): R77.8 - Other specified abnormalities of plasma proteins Status: Acute Assessment and Plan: Troponin mildly elevated at 0.045. Could be related to mildly elevated TCK and/or from the AFib/RVR. EKG does not show any signifincat ST-T wave changes. Follow. Repeat Trop once today. (7) Elevated LFTs: Code(s): R79.89 - Other specified abnormal findings of blood chemistry Status: Acute Assessment and Plan: AST 115 and ALT 46. Probably elevated related to the elevated TCK at 1044. UA shows only trace blood so do not feel need to start IV fluids at this point. Will follow. Hold statin therapy and trend LFTs. (8) Essential hypertension: Code(s): I10 - Essential (primary) hypertension Status: Acute Assessment and Plan: Patient's blood pressure was reviewed on 11/19 Blood pressure remains well controlled. Will continue current medications. (9) Diabetes mellitus type 2, controlled, with complications: Code(s): E11.8 - Type 2 diabetes mellitus with unspecified complications Status: Acute Assessment and Plan: A1c 6.6. The patient's blood glucose was reviewed on 11/19 Glucose remains well controlled. Start AccuCheks covering with sliding scale. Hypoglycemia protocol will be available as needed. Continue to monitor (10) Bilateral carotid artery disease: Code(s): I73.9 - Peripheral vascular disease, unspecified Status: Acute Assessment and Plan: On Xarelto but does not appear to be on any anti-platelet agents. Hold atorvastatin given the elevated TCK. (11) Hypothyroidism: Code(s): E03.9 - Hypothyroidism, unspecified Status: Acute Assessment and Plan: TSH normal. Continue levothyroxine Plan DVT prophylaxis SCDs Code status full code Subjective Date/time seen: 11/19/22 09:54 Interval history: 77yo female with AFib, DM, CVA and carotid disease here for syn
--- NOTE | 2022-11-19 11:13 | PM.PNORT ---
Progress Note: A&P Assessment and Plan (1) Bimalleolar fracture of left ankle: Qualifiers: Encounter type: initial encounter Fracture type: closed Qualified Code(s): S82.842A - Displaced bimalleolar fracture of left lower leg, initial encounter for closed fracture Code(s): S82.842A - Displaced bimalleolar fracture of left lower leg, initial encounter for closed fracture Status: Acute Plan 77-year-old female with a displaced bimalleolar left ankle fracture. She remains in AFib with RVR, Xarelto has been held. Still plan for surgical ORIF on 11/20/2022.Plan to restart Xarelto after ORIF tomorrow. Subjective Subjective Date/Time Seen: 11/19/22 11:13 Principal diagnosis: Left ankle fracture Interval history: 77-year-old female with a bimalleolar left ankle fracture. She is splinted and keeping the ankle elevated. No numbness or tingling into the foot. No new complaints today. Review of Systems Constitutional: Constitutional: Reports as per HPI and Reports no additional constitutional complaints Musculoskeletal: Musculoskeletal: Reports no additional musculoskeletal complaints and Reports as per HPI Exam Const: General: comfortable and no acute distress Resp: Effort & Inspection: normal respiratory effort Cardio: Rhythm: abnormal rhythm irregularly irregular ( Atrial fibrillation) Skin: General skin exam: normal color, no rashes or lesions noted and no erythema Neuro: General: patient oriented x3 and moves all extremities Cognition (Neuro): normal cognition Speech: normal speech Sensory Exam: normal sensation Extrem: Other: Exam shows a splinted left ankle. Sensation of the left toes are intact with good capillary refill. Lower leg compartments are supple. Psych: Mental Status: mental status grossly normal Radiology Reports: Comments: Left ankle Technique: AP, oblique, and lateral views were obtained. Clinical History: Pain Findings: There is an oblique, traumatic, fracture of the distal fibular shaft, with the fracture centered approximately 6.3 cm proximal to the tip of the lateral malleolus. There is displacement up to approximately 9 mm. There is a transverse traumatic fracture of the medial malleolus, with displacement by up to at least approximately 1.5 cm. There is apparent marked widening of the ankle mortise anteromedially, best evident on the oblique view. Questionable very subtle posterior malleolus fracture. There is diffuse soft tissue swelling about the ankle, especially anteriorly. Impression: Significantly displaced fractures of the medial malleolus and distal fibular shaft, as detailed above. Questionable subtle posterior malleolus fracture. Consider CT to better confirm or exclude posterior malleolus fracture as indicated. Marked widening of the ankle mortise anteromedially, best evident on oblique view. Objective Data Vital Signs Vital Signs: Vital Signs - 24 hr 11/18/22 12:17 11/18/22 13:10 11/18/22 12:00 Temperature 96.8 F L Pulse Rate 113 H 117 H 115 H Respiratory Rate 18 Blood Pressure 148/86 H Pulse Oximetry 96 Oxygen Delivery 11/18/22 14:00 11/18/22 16:00 11/18/22 16:19 Temperature 97.6 F Pulse Rate 112 H 110 H 116 H Respiratory Rate 20 Blood Pressure 142/94 H Pulse Oximetry 96 Oxygen Delivery 11/18/22 18:00 11/18/22 20:00 11/18/22 20:00 Temperature 97.8 F Pulse Rate 106 H 109 H 105 H Respiratory Rate 18 Blood Pressure 106/63 Pulse Oximetry 97 Oxygen Delivery 11/18/22 20:00 11/18/22 22:00 11/18/22 23:26 Temperature 97.9 F Pulse Rate 105 H 102 H 118 H Respiratory Rate 18 20 Blood Pressure 147/82 H Pulse Oximetry 97 97 Oxygen Delivery Room Air 11/19/22 00:00 11/19/22 00:00 11/19/22 02:00 Temperature Pulse Rate 102 H 102 H 114 H Respiratory Rate 20 Blood Pressure Pulse Oximetry 97 Oxygen Delivery Room Air 11/19/22 04:00 11/19/22 04:00 11/19
[2022-11-19] MEDS: POTASSIUM CHLORIDE 20 MEQ TABLET 40 MEQ PO (11:37)
[2022-11-19] MEDS: METOPROLOL SUCCINATE EXT REL 25 MG TABCR PO (11:38)
[2022-11-19 11:54] LABS: Troponin I 0.015 ng/mL (0.000-0.034)
--- NOTE | 2022-11-19 12:33 | PM.CNCAR ---
Assessment and Plan Assessment and plan (1) Syncopal episodes: Code(s): R55 - Syncope and collapse Status: Acute Assessment and Plan: Probably due to orthostatic syncope. Advise to drink about 2-3 water bottles a day. (2) Elevated troponin: Code(s): R77.8 - Other specified abnormalities of plasma proteins Status: Acute Assessment and Plan: Very mild and peaked at .045. Could be related to rapid atrial fib, diastolic dysfunction, or ankle fracture. Obtain echo. (3) Atrial fibrillation with rapid ventricular response: Code(s): I48.91 - Unspecified atrial fibrillation Status: Acute Assessment and Plan: Rate is not controlled currently. On Xarelto which is on hold now for upcoming ankle surgery. Metoprolol Succinate just increased to 75 mg daily. Monitor BP. If BP is OK, would add Diltiazem 30 mg BID. (4) Diastolic dysfunction: Code(s): I51.89 - Other ill-defined heart diseases Status: Acute Assessment and Plan: Euvolemic. (5) PVD (peripheral vascular disease): Code(s): I73.9 - Peripheral vascular disease, unspecified Status: Acute Assessment and Plan: Stable and mild. (6) Dyslipidemia: Code(s): E78.5 - Hyperlipidemia, unspecified Status: Acute Assessment and Plan: On Atorvastatin. (7) Essential hypertension: Code(s): I10 - Essential (primary) hypertension Status: Acute Assessment and Plan: Stable. (8) Bilateral carotid artery disease: Code(s): I73.9 - Peripheral vascular disease, unspecified Status: Acute Assessment and Plan: Stable. (9) Preop cardiovascular exam: Code(s): Z01.810 - Encounter for preprocedural cardiovascular examination Status: Acute Assessment and Plan: If echo is OK, may proceed to noncardiac surgery which is ankle surgery without any further cardiac workup. History of Present Illness History of Present Illness Consult date/time: 11/19/22 12:33 Reason For Visit: Fall Left Ankle Fracture/A Fib RVR Narrative: Patient is a 77 yr old woman who is my regular cardiology patient presents to ER after a fall. She has a history of carotid disease S/P Right CEA and being followed by [facility] Vascular surgery, dyslipidemia, atrial fibrillation diagnosed on 06/28/19. States yesterday she was showering sitting on a stool, then she stood up as she was finishing and next thing she remembers is being on the floor calling her for help. It is found she fractured her left ankle in the fall. Normally she reports getting more LARSON with walking only 50 feet. She does not drink much water perhaps 1 glass a day and drinks diet dr pepper. Denies chest, pain, sob, orthopnea, PND. Cardiovascular Procedures Echo/MUGA:: 11/06/20 Echo: EF 60-65%, diastolic dysfunction (E/e' 15), severe LAE, mod MAC, mild-mod MR/TR. 07/13/19 Echo EF 45-50%, mild LVH, diastolic dysfunction (E/e' 13), mod LAE, severe MAC, mild-mod MR, mod TR. Electrophysiology:: 06/28/19 EKG: Atrial fibrillation at 148 bpm, nonspecific ST-T wave in lateral leads. Stress Tests:: 07/18/19 Lexiscan myoview: Negative for ischemia. 04/25/22 PUNEET right 1.04, TBI mildly abnormal at 0.56, left PUNEET 1.11. 08/03/17 Carotid CTA: occluded right CCA; 50% left carotid bulb/ICA stenosis. 2006 Vascular srugery: Right CEA. Review of Systems Review of Systems: All systems reviewed & are unremarkable except as noted in HPI and below Constitutional: Constitutional: Reports as per HPI, Denies chills and Denies fever(s) Cardiovascular: Cardiovascular: Reports as per HPI, Denies chest pain, Denies irregular heart rhythm, Denies leg edema and Denies lightheadedness Respiratory: Respiratory: Reports as per HPI and Reports dyspnea on exertion Gastrointestinal: Gastrointestinal: Reports as per HPI and Denies abdominal pain Genitourinary: Genitourinary: Reports as per HPI and Denies dysuria Musculoskeletal: Muscu
[2022-11-19 13:02] LABS: Glucose Point of Care 181 mg/dl (65-105)
--- NOTE | 2022-11-19 15:42 | PCCCNOTE ---
On 11/19/22, the student, [Adriana Ordoñez ], provided care and completed [facility] documentation on this patient. I have reviewed the student's documentation and agree with the findings.
[2022-11-19 17:19] LABS: Glucose Point of Care 181 mg/dl (65-105)
[2022-11-19 20:11] LABS: Glucose Point of Care 212 mg/dl (65-105)
[2022-11-19] MEDS: dilTIAZem HCL 30 MG TABLET PO (20:18)
[2022-11-19] MEDS: ENOXAPARIN 30 MG/0.3 ML SYRINGE SUB-Q (20:18)
[2022-11-20] VITALS (23 sets, daily range): BP systolic 109–166; BP diastolic 57–102; PULSE 79–111; RESP 12–20; TEMP 35.7–37.2; O2SAT 91–100
[2022-11-20 05:01] LABS: Basophils Percent Auto 0.4 % (0.2-1.2); Eosinophils Percent Auto 0.7 % (0-4.4); Hematocrit 43.4 % (37.0-47.0); Hemoglobin 14.3 g/dL (12.0-15.0); Immature Granulocyte Absolute 0.01 K/mm3 (0.00-0.031); Immature Granulocyte Percent A 0.2 % (0-0.5); Lymphocytes Absolute Auto 1.52 K/mm3 (0.9-3.2); Lymphocytes Percent Auto 27.1 % (18.3-44.2); Mean Corpuscular HGB Conc 32.9 g/dl (32-36); Mean Corpuscular Volume 103.3 fl (80-100); Mean Platelet Volume 9.6 fl (7.4-10.4); Monocytes Absolute Auto 0.8 K/mm3 (0.1-0.6); Monocytes Percent Auto 14.3 % (2.6-8.5); Neutrophils Absolute Auto 3.2 K/mm3 (1.3-6.7); Neutrophils Percent Auto 57.3 % (45.5-73.1); Platelet Count Result 189 k/mm3 (150-375); Red Cell Distribution Width 11.9 % (11.5-14.5); White Blood Count 5.6 K/mm3 (4.5-10.0)
[2022-11-20 05:11] LABS: Alanine Aminotransferase 48 U/L (6-35); Albumin Level 3.6 g/dL (3.5-5.1); Alkaline Phosphatase 90 U/L (38-126); Anion Gap 4 mmol/L (8-16); Aspartate Amino Transferase 87 U/L (14-36); Bilirubin,Total 0.7 mg/dL (0.2-1.3); Blood Urea Nitrogen 17 mg/dL (7-17); Calcium 8.7 mg/dL (8.4-10.2); Carbon Dioxide 31 mmol/L (22-30); Chloride 99 mmol/L (98-107); Creatine Kinase 404 U/L (30-135); Estimated CRCL calculation 48 ml/min; Estimated Glomerular Filt Rate > 60; Glucose 121 mg/dL (65-110); Magnesium 1.7 mg/dL (1.6-2.3); Sodium 134 mmol/L (137-145)
[2022-11-20 07:53] LABS: Glucose Point of Care 134 mg/dl (65-105)
--- NOTE | 2022-11-20 07:56 | PM.PNCARD ---
Progress Note: A&P Assessment and Plan (1) Syncopal episodes: Code(s): R55 - Syncope and collapse Status: Acute Assessment and Plan: Probably due to orthostatic syncope. Advise to drink about 2-3 water bottles a day. (2) Elevated troponin: Code(s): R77.8 - Other specified abnormalities of plasma proteins Status: Acute Assessment and Plan: Very mild and peaked at .045. Could be related to rapid atrial fib, diastolic dysfunction, or ankle fracture. 11/19/22 Echo: EF 60-65%, diastolic dysfunction (E/e' 10), biatrial enlargement, mild-mod MR/TR. (3) Atrial fibrillation with rapid ventricular response: Code(s): I48.91 - Unspecified atrial fibrillation Status: Acute Assessment and Plan: Rate is not controlled currently. On Xarelto which is on hold now for upcoming ankle surgery. Metoprolol Succinate increased to 75 mg daily and added Diltiazem 30 mg PO BID. Monitor BP and HR. (4) Diastolic dysfunction: Code(s): I51.89 - Other ill-defined heart diseases Status: Acute Assessment and Plan: Euvolemic. (5) PVD (peripheral vascular disease): Code(s): I73.9 - Peripheral vascular disease, unspecified Status: Acute Assessment and Plan: Stable and mild. (6) Dyslipidemia: Code(s): E78.5 - Hyperlipidemia, unspecified Status: Acute Assessment and Plan: On Atorvastatin. (7) Essential hypertension: Code(s): I10 - Essential (primary) hypertension Status: Acute Assessment and Plan: Stable. (8) Bilateral carotid artery disease: Code(s): I73.9 - Peripheral vascular disease, unspecified Status: Acute Assessment and Plan: Stable. (9) Preop cardiovascular exam: Code(s): Z01.810 - Encounter for preprocedural cardiovascular examination Status: Acute Assessment and Plan: Echo is OK, may proceed to noncardiac surgery which is ankle surgery without any further cardiac workup. Subjective Date/time seen: 11/20/22 07:56 Interval history: Denies chest pain or sob. Exam Const: General: cooperative, healthy appearing and comfortable Orientation/consciousness: oriented to person, oriented to place and oriented to time Resp: Auscultation: clear to auscultation bilaterally, no crackles, no rales, no rhonchi and no wheezes Cardio: Rate: tachycardic Rhythm: abnormal rhythm Heart sounds: no murmurs Peripheral pulses: dorsalis pedis present Neuro: General: oriented to person, oriented to place and oriented to time Extrem: Right lower extremity: no edema Other: Left leg is bandaged wrapped. Objective Data Vital Signs Vital Signs: Vital Signs - 24 hr 11/19/22 08:00 11/19/22 08:00 11/19/22 08:00 Temperature 99.1 F Pulse Rate 107 H 128 H Respiratory Rate 20 Blood Pressure 136/71 Pulse Oximetry 100 Oxygen Delivery Room Air 11/19/22 10:00 11/19/22 11:57 11/19/22 12:00 Temperature 97.4 F L Pulse Rate 116 H 111 H Respiratory Rate 20 Blood Pressure 108/59 L Pulse Oximetry 95 Oxygen Delivery Room Air 11/19/22 12:00 11/19/22 14:00 11/19/22 16:00 Temperature Pulse Rate 131 H 108 H 109 H Respiratory Rate Blood Pressure Pulse Oximetry Oxygen Delivery 11/19/22 16:00 11/19/22 16:00 11/19/22 18:00 Temperature 97.5 F L Pulse Rate 95 99 Respiratory Rate 18 Blood Pressure 108/64 Pulse Oximetry 99 Oxygen Delivery Room Air 11/19/22 20:00 11/19/22 20:00 11/19/22 20:00 Temperature 98 F Pulse Rate 102 H 100 Respiratory Rate 16 Blood Pressure 114/71 Pulse Oximetry 95 Oxygen Delivery Room Air 11/19/22 23:56 11/19/22 23:58 11/20/22 00:00 Temperature 98.2 F Pulse Rate 82 91 Respiratory Rate 16 Blood Pressure 100/74 Pulse Oximetry 96 Oxygen Delivery Room Air 11/20/22 04:00 11/20/22 04:00 11/20/22 04:00 Temperature 98.1 F Pulse Rate 103 H 96 Respiratory Rate 16 Blo
[2022-11-20] MEDS: METOPROLOL SUCCINATE EXT REL 25 MG, METOPROLOL SUCCINATE EXT REL 50 MG 75 MG PO (08:36)
[2022-11-20] MEDS: CYANOCOBALAMIN 1,000 MCG TABLET 5000 MCG PO (08:36)
[2022-11-20] MEDS: ASCORBIC ACID 500 MG TABLET PO (08:36)
[2022-11-20] MEDS: ZINC SULFATE 220 MG CAPSULE PO (08:36)
[2022-11-20] MEDS: dilTIAZem HCL 30 MG TABLET PO ×2 (08:36→19:59)
[2022-11-20] MEDS: DULoxetine HCL 60 MG CAPSULE.DR PO (08:36)
[2022-11-20] MEDS: ONDANSETRON INJ 4 MG/2 ML VIAL IV PUSH ×2 (09:17→16:40)
[2022-11-20] MEDS: LACTATED RINGERS 1,000 ML 30 ML IV CONT ×2 (11:30→15:04)
[2022-11-20 11:45] LABS: Glucose Point of Care 146 mg/dl (65-105)
--- NOTE | 2022-11-20 12:31 | WPDHPUPDATE1 ---
History and Physical Update Update Date/Time: 11/20/22 12:31 History and Physical has been reviewed, including an updated exam of the patient. There are NO changes in the patient's condition. Risks, benefits, and alternatives have been discussed and questions answered. Patient agrees to proceed with procedure.
--- NOTE | 2022-11-20 13:19 | WPDANESEPPF ---
Anes - Initial Pre Proc Eval Procedure: Operation Date: 11/20/22 13:00 Proposed Procedures p Open Reduction Internal Fracture Left Bimalleolar Ankle Fracture - Aaron Fisher MD Date/Time: 11/20/22 13:19 Surgeon: Ryne Azevedo MD Pre Op Diagnosis: Fall Left Ankle Fracture/A Fib RVR Patient Data Age: 77 Gender: F Height: 1.6 m Weight: 86.6 kg Last Vital Signs Temp 36.7 C 11/20/22 13:00 Pulse 90 11/20/22 13:00 Resp 16 11/20/22 13:00 BP 109/72 11/20/22 13:00 Pulse Ox 95 11/20/22 13:00 O2 Del Method Room Air 11/20/22 13:00 Allergies Allergy/AdvReac Type Severity Reaction Status Date / Time amoxicillin Allergy Intermediate Rash Verified 11/18/22 04:35 clavulanic acid Allergy Intermediate Rash Verified 11/18/22 04:35 erythromycin base Allergy Unknown Unknown Verified 11/18/22 04:35 meperidine Allergy Unknown Unknown Verified 11/18/22 04:35 Penicillins Allergy Unknown Unknown Verified 11/18/22 04:35 Home Medications Medication Instructions Recorded Confirmed Type atorvastatin 20 mg tablet 20 mg PO DAILY #90 tabs 11/13/22 11/18/22 Rx ascorbic acid (vitamin C) 500 mg 500 mg PO DAILY 11/18/22 11/18/22 History tablet (Vitamin C) bupropion HCl 150 mg 24 hr tablet, 150 mg PO DAILY 11/18/22 11/18/22 History extended release cyanocobalamin (vitamin B-12) 5,000 mcg PO DAILY 11/18/22 11/18/22 History 5,000 mcg disintegrating tablet doxycycline hyclate 100 mg tablet 100 mg PO DAILY 11/18/22 11/18/22 History duloxetine 60 mg capsule,delayed 60 mg PO DAILY 11/18/22 11/18/22 History release levothyroxine 25 mcg tablet 25 mcg PO DAILY 11/18/22 11/18/22 History metoprolol succinate 50 mg 50 mg PO DAILY 11/18/22 11/18/22 History tablet,extended release 24 hr neomycin 3.5 mg/g-polymyxin B 1 applic LEFT EYE TID 11/18/22 11/18/22 History 10,000 unit/g-dexameth 0.1 % eye oint polymyxin B sulfate 10,000 1 drp LEFT EYE QID 11/18/22 11/18/22 History unit-trimethoprim 1 mg/mL eye drops rivaroxaban 20 mg tablet (Xarelto) 20 mg PO DAILY 11/18/22 11/18/22 History tobramycin 0.3 % eye drops 1 drp LEFT EYE QID 11/18/22 11/18/22 History zinc gluconate 50 mg tablet 50 mg PO DAILY 11/18/22 11/18/22 History Laboratory Tests 11/19/22 11/19/22 11/20/22 16:42 19:45 04:23 WBC 5.6 K/mm3 K/mm3 (4.5-10.0) RBC 4.20 M/mm3 M/mm3 (4.2-5.4) Hgb 14.3 g/dL g/dL (12.0-15.0) Hct 43.4 % % (37.0-47.0) MCV 103.3 fl H fl (80-100) MCH 34.0 pg pg (26-34) MCHC 32.9 g/dl g/dl (32-36) RDW 11.9 % % (11.5-14.5) Plt Count 189 k/mm3 k/mm3 (150-375) MPV 9.6 fl fl (7.4-10.4) Immature Gran % (Auto) 0.2 % % (0-0.5) Neut % (Auto) 57.3 % % (45.5-73.1) Lymph % (Auto) 27.1 % % (18.3-44.2) Forest % (Auto) 14.3 % H % (2.6-8.5) Eos % (Auto) 0.7 % % (0-4.4) Baso % (Auto) 0.4 % % (0.2-1.2) Lymph # (Auto) 1.52 K/mm3 K/mm3 (0.9-3.2) Forest # (Auto) 0.8 K/mm3 H K/mm3 (0.1-0.6) Eos # (Auto) 0.0 K/mm3 K/mm3 (0-0.3) Baso # (Auto) 0.0 K/mm3 K/mm3 (0.0-0.1) Abs Immat Gran (auto) 0.01 K/mm3 K/mm3 (0.00-0.031) Absolute Neuts (auto) 3.2 K/mm3 K/mm3 (1.3-6.7) Absolute Nucleated RBC 0.0 K/mm3 K/mm3 (0.0-0.012) Nucleated RBC % 0.0 % % (0.0-0.2) Sodium Potassium Chloride Carbon Dioxide Anion Gap BUN Creatinine Estim Creat Clear Calc Estimated GFR Glucose POC Capillary Glucose 181 mg/dl H mg/dl 212 mg/dl H mg/dl (65-105) (65-105) Calcium Magnesium Total Bilirubin AST ALT Alkaline Phosphatase Total Creatine Kinase Total Protein
[2022-11-20] MEDS: ceFAZolin 2 GM/D5W 50 ML 2 GM/50 ML BAG IVPB ×2 (13:42→22:20)
--- NOTE | 2022-11-20 15:06 | PM.IMPN ---
Progress Note: A&P Assessment and Plan (1) Syncopal episodes: Code(s): R55 - Syncope and collapse Status: Acute Assessment and Plan: Patient with syncopal episode in the shower. She probably has retrograde amnesia. Head CT showing chronic CVAs but no acute findings. Cervical spine CT showing no fracture but showing multiple nodules at the lung apices. No hx of cancer but hx breast mass. CT chest showing granulomas. TSH and B12 normal here. Probably orthostatic HoTN causing the fall. Unable to do orthostatic vital signs at this time. Follow closely as we adjust her meds. (2) Atrial fibrillation: Code(s): I48.91 - Unspecified atrial fibrillation Status: Acute Assessment and Plan: Patient has chronic AFib but with RVR. TSH normal. Metoprolol was restarted and advanced. Xarelto was held due to surgical intervention but now restarted. Diltiazem added. Heart rate better controlled. Follow on Tele. (3) Ankle fracture, left: Code(s): S82.892A - Other fracture of left lower leg, initial encounter for closed fracture Status: Deleted Assessment and Plan: Patient with left ankle pain with xray showing displaced fractures of the medial malleolus and distal fibular shaft with possible subtle posterior malleolus fracture. Related to the syncopal episode and fall. POD #0 from a ORIF left lateral malleolus repair. Pain controlled. Appreciate orthopedic surgery consult. Start PT/OT (4) Fall: Code(s): W19.XXXA - Unspecified fall, initial encounter Status: Acute Assessment and Plan: As above (5) Diastolic heart failure: Code(s): I50.30 - Unspecified diastolic (congestive) heart failure Status: Acute Assessment and Plan: Echo in November 2020 showing EF 60-65% with abnormal diastolic function and mild-mod MR and TR. Lasix given once 11/18. Clinically she is euvolemic. As above (6) Elevated troponin: Code(s): R77.8 - Other specified abnormalities of plasma proteins Status: Acute Assessment and Plan: Troponin mildly elevated at 0.045. Could be related to mildly elevated TCK and/or from the AFib/RVR. EKG does not show any signifincat ST-T wave changes. Repeat Trop normal now. (7) Elevated LFTs: Code(s): R79.89 - Other specified abnormal findings of blood chemistry Status: Acute Assessment and Plan: AST 115 and ALT 46. Probably elevated related to the elevated TCK at 1044. UA shows only trace blood so do not feel need to start IV fluids at this point. LFTs trending down. Continue to hold statin therapy and trend LFTs. Will follow. (8) Essential hypertension: Code(s): I10 - Essential (primary) hypertension Status: Acute Assessment and Plan: Patient's blood pressure was reviewed on 11/20 Blood pressure remains well controlled. Will continue current medications. (9) Diabetes mellitus type 2, controlled, with complications: Code(s): E11.8 - Type 2 diabetes mellitus with unspecified complications Status: Acute Assessment and Plan: A1c 6.6. The patient's blood glucose was reviewed on 11/20 Glucose remains well controlled. Start AccuCheks covering with sliding scale. Hypoglycemia protocol will be available as needed. Continue to monitor (10) Bilateral carotid artery disease: Code(s): I73.9 - Peripheral vascular disease, unspecified Status: Acute Assessment and Plan: On Xarelto but does not appear to be on any anti-platelet agents. Hold atorvastatin given the elevated TCK. (11) Hypothyroidism: Code(s): E03.9 - Hypothyroidism, unspecified Status: Acute Assessment and Plan: TSH normal. Continue levothyroxine Plan DVT prophylaxis SCDs Code status full code Subjective Date/time seen: 11/20/22 15:06 Interval history: 77yo female with AFib, DM, CVA and carotid disease here for syncope with fall and found
[2022-11-20] MEDS: fentaNYL CITRATE INJ (*CRX) 100 MCG/2 ML VIAL 25 MCG IV PUSH ×6 (15:25→16:00)
--- NOTE | 2022-11-20 15:27 | W.PM.PROC2 ---
Procedure Note - Detailed Date of Procedure 11/20/22 Pre-op Diagnosis Left bimalleolar ankle fracture Post-op Diagnosis Same Procedure Performed ORIF left lateral malleolus Surgeon Aaron Fisher MD Sample Card Maker Briseida Chin Anesthesia General Description of Procedure Patient identified and the proper site identified. She was taken to the operating room and transferred to the OR table placing her supine taking care to pad her torso extremities. After general anesthetic induction and intubation, a nonsterile tourniquet was placed high on the left thigh. Left lower extremity was prepped and draped in usual sterile fashion. Extremity was exsanguinated and tourniquet was inflated to 300 millimeters of mercury. Longitudinal incision was made centered over the fibular fracture site. Subcutaneous tissue sharply dissected down to the fracture which is identified and cleared of debris. There was quite a bit of comminution at the fracture site so the plate was provisionally secured distally and then it was used to indirectly reduce the fracture it was secured proximally giving a virtually anatomic position to the fracture site. The plate was then secured with series of locking screws placed under fluoroscopic assistance. Once this was done the lateral malleolar fragment and talar position were assessed fluoroscopically. The talus was positioned anatomically in the mortise and the highly comminuted medial malleolar fragments were lined up in reasonable position. He was deemed to be too comminuted for any type screws fixation so this was accepted. Wound was irrigated with sterile saline. Skin reapproximated with 3-0 Stratafix and nieves. Sterile dressing was applied. Tourniquet was released. An exceptionally well-padded stirrup type ankle splint was applied with the ankle in neutral position. Patient tolerated the procedure well. She was awakened, extubated and taken to recovery area in stable condition. There were no known intraoperative complications. Estimated blood loss was 20 milliliters. She received perioperative antibiotics. Estimated Blood Loss 20 Urine Output 550 Drains No Packing No Pathology None sent Complications No immediate complications Condition Stable Disposition PACU [facility] Billing Surgery - Charge Forward: Surgery Billing ([id number] for the ORIF; [id number] - Intraoperative fluoroscopic guidance)
[2022-11-20 16:33] LABS: Glucose Point of Care 209 mg/dl (65-105)
[2022-11-20] MEDS: INSULIN ASPART (*BKC) 100 UNITS/ML SUB-Q (16:41)
[2022-11-20] MEDS: RIVAROXABAN 20 MG TABLET PO (16:41)
[2022-11-20] MEDS: FAMOTIDINE 20 MG TABLET PO (19:59)
[2022-11-20 20:56] LABS: Glucose Point of Care 242 mg/dl (65-105)
[2022-11-21] VITALS (13 sets, daily range): BP systolic 104–133; BP diastolic 56–80; PULSE 73–94; RESP 16; TEMP 36.3–36.6; O2SAT 96–100
[2022-11-21 05:11] LABS: Hematocrit 40.1 % (37.0-47.0); Hemoglobin 13.6 g/dL (12.0-15.0); Immature Granulocyte Absolute 0.01 K/mm3 (0.00-0.031); Immature Granulocyte Percent A 0.2 % (0-0.5); Lymphocytes Absolute Auto 0.53 K/mm3 (0.9-3.2); Mean Corpuscular HGB Conc 33.9 g/dl (32-36); Mean Corpuscular Hemoglobin 33.5 pg (26-34); Mean Corpuscular Volume 98.8 fl (80-100); Mean Platelet Volume 9.7 fl (7.4-10.4); Monocytes Absolute Auto 0.4 K/mm3 (0.1-0.6); Monocytes Percent Auto 5.6 % (2.6-8.5); Neutrophils Absolute Auto 5.7 K/mm3 (1.3-6.7); Neutrophils Percent Auto 86.2 % (45.5-73.1); Platelet Count Result 184 k/mm3 (150-375); Red Blood Count 4.06 M/mm3 (4.2-5.4); Red Cell Distribution Width 11.5 % (11.5-14.5); White Blood Count 6.6 K/mm3 (4.5-10.0)
[2022-11-21 05:23] LABS: Alanine Aminotransferase 39 U/L (6-35); Albumin Level 3.7 g/dL (3.5-5.1); Alkaline Phosphatase 83 U/L (38-126); Anion Gap 5 mmol/L (8-16); Aspartate Amino Transferase 61 U/L (14-36); Bilirubin,Total 0.6 mg/dL (0.2-1.3); Blood Urea Nitrogen 18 mg/dL (7-17); Calcium 8.6 mg/dL (8.4-10.2); Carbon Dioxide 32 mmol/L (22-30); Chloride 96 mmol/L (98-107); Creatine Kinase 163 U/L (30-135); Estimated CRCL calculation 53 ml/min; Estimated Glomerular Filt Rate > 60; Glucose 182 mg/dL (65-110); Potassium 4.1 mmol/L (3.4-5.0); Sodium 133 mmol/L (137-145)
[2022-11-21] MEDS: ceFAZolin 2 GM/D5W 50 ML 2 GM/50 ML BAG IVPB ×2 (05:27→19:50)
[2022-11-21] MEDS: LEVOTHYROXINE SODIUM 25 MCG TABLET PO (05:35)
--- NOTE | 2022-11-21 07:56 | PM.PNCARD ---
Progress Note: A&P Assessment and Plan (1) Syncopal episodes: Code(s): R55 - Syncope and collapse Status: Acute Assessment and Plan: Probably due to orthostatic syncope. Advise to drink about 2-3 water bottles a day. (2) Elevated troponin: Code(s): R77.8 - Other specified abnormalities of plasma proteins Status: Acute Assessment and Plan: Very mild and peaked at .045. Could be related to rapid atrial fib, diastolic dysfunction, or ankle fracture. 11/19/22 Echo: EF 60-65%, diastolic dysfunction (E/e' 10), biatrial enlargement, mild-mod MR/TR. (3) Atrial fibrillation with rapid ventricular response: Code(s): I48.91 - Unspecified atrial fibrillation Status: Acute Assessment and Plan: Rate is controlled currently. On Xarelto which was on hold for ankle surgery. Metoprolol Succinate increased to 75 mg daily and added Diltiazem 30 mg PO BID. Monitor BP and HR. Resume Xarelto 20 mg this evening with a meal if OK with orthopedic service. (4) Diastolic dysfunction: Code(s): I51.89 - Other ill-defined heart diseases Status: Acute Assessment and Plan: Euvolemic. (5) PVD (peripheral vascular disease): Code(s): I73.9 - Peripheral vascular disease, unspecified Status: Acute Assessment and Plan: Stable and mild. (6) Dyslipidemia: Code(s): E78.5 - Hyperlipidemia, unspecified Status: Acute Assessment and Plan: On Atorvastatin. (7) Essential hypertension: Code(s): I10 - Essential (primary) hypertension Status: Acute Assessment and Plan: Stable. (8) Bilateral carotid artery disease: Code(s): I73.9 - Peripheral vascular disease, unspecified Status: Acute Assessment and Plan: Stable. (9) Preop cardiovascular exam: Code(s): Z01.810 - Encounter for preprocedural cardiovascular examination Status: Acute Assessment and Plan: Post op day #1. Obtain EKG. Subjective Date/time seen: 11/21/22 07:56 Interval history: Denies chest pain or sob. Exam Const: General: cooperative, healthy appearing and comfortable Orientation/consciousness: oriented to person, oriented to place and oriented to time Resp: Auscultation: clear to auscultation bilaterally, no crackles, no rales, no rhonchi and no wheezes Cardio: Rate: regular rate Rhythm: abnormal rhythm Heart sounds: no murmurs Peripheral pulses: dorsalis pedis present Neuro: General: oriented to person, oriented to place and oriented to time Extrem: Right lower extremity: no edema Other: Left leg is bandaged wrapped. Objective Data Vital Signs Vital Signs: Vital Signs - 24 hr 11/20/22 08:00 11/20/22 08:00 11/20/22 08:00 Temperature 96.9 F L Pulse Rate 111 H 101 H Respiratory Rate 20 Blood Pressure 124/81 Pulse Oximetry 96 Oxygen Delivery Room Air Oxygen Flow Rate 11/20/22 10:00 11/20/22 11:45 11/20/22 12:00 Temperature 97.1 F L Pulse Rate 93 95 Respiratory Rate 20 Blood Pressure 111/66 Pulse Oximetry 96 Oxygen Delivery Room Air Oxygen Flow Rate 11/20/22 12:00 11/20/22 13:00 11/20/22 15:04 Temperature 98.0 F 99 F Pulse Rate 89 90 91 Respiratory Rate 16 13 Blood Pressure 109/72 147/73 H Pulse Oximetry 95 98 Oxygen Delivery Room Air Simple Face Mask Oxygen Flow Rate 10 11/20/22 15:15 11/20/22 15:30 11/20/22 15:45 Temperature Pulse Rate 82 89 89 Respiratory Rate 20 18 12 Blood Pressure 166/102 H 165/85 H 128/78 Pulse Oximetry 100 100 100 Oxygen Delivery Simple Face Mask Room Air Room Air Oxygen Flow Rate 10 11/20/22 16:00 11/20/22 16:01 11/20/22 16:16 Temperature 96.3 F L 96.8 F L Pulse Rate 84 79 81 Respiratory Rate 20 20 20 Blood Pressure 128/71 129/71 117/78 Pulse Oximetry 100 98 99 Oxygen Delivery Room Air Oxygen Flow Rate 11/20/22 16:46 11/20/22 17:26 11/20/22 16:00 Temperature 96.8 F L 96.4 F L Pulse Rate 8
--- NOTE | 2022-11-21 07:58 | ECG_ITS ---
Measurements Intervals [place] Rate: 84 P: MI: 0 QRS: 54 QRSD: 94 T: 62 QT: 379 QTc: 450 Interpretive Statements ATRIAL FIBRILLATION VENTRICULAR PREMATURE COMPLEX ABNORMAL ECG COMPARED TO ECG 11/19/2022 09:18:52 HEART RATE HAS DECREASED Electronically Signed On 11-21-2022 10:20:35 CDT by Mejia Castro D.O.
[2022-11-21 08:02] LABS: Glucose Point of Care 185 mg/dl (65-105)
[2022-11-21] MEDS: ZINC SULFATE 220 MG CAPSULE PO (08:57)
[2022-11-21] MEDS: ASCORBIC ACID 500 MG TABLET PO (08:57)
[2022-11-21] MEDS: dilTIAZem HCL 30 MG TABLET PO ×2 (08:58→20:56)
[2022-11-21] MEDS: DULoxetine HCL 60 MG CAPSULE.DR PO (08:59)
[2022-11-21] MEDS: CYANOCOBALAMIN 1,000 MCG TABLET 5000 MCG PO (08:59)
[2022-11-21] MEDS: FAMOTIDINE 20 MG TABLET PO ×2 (08:59→20:56)
[2022-11-21] MEDS: METOPROLOL SUCCINATE EXT REL 25 MG, METOPROLOL SUCCINATE EXT REL 50 MG 75 MG PO (09:24)
--- NOTE | 2022-11-21 10:36 | PCNFU ---
Nutrition Follow-Up Complete: Inadequate oral intake related to NPO status (surgery) as evidenced by no intake since admission. Goal: 1. Diet will be advanced in the next 48-72 hours. - Goal met 2. Patient weight will remain within 2% of admission weight (71.3 kg) through follow-up. - Goal met Pt current nutrition is Heart healthy diet. 80% average intakes. Nutrition recommendation: Add Ensure Compact BID for 220 kcals and 9 g protein each. Last recorded weight is 72.6 kg. Bowel Motility: +5 BMs charted 11/19/22. Per patient she has chronic diarrhea, possible IBS. Recommended she mention to hospitalist Labs Reviewed: Na 133, Glu 185 Meds Noted: Morphine Skin: Ankle incision Additional Notes: Per patient, she is eating okay. She is careful about what she eats because of chronic diarrhea. Add Ensure Compact for trial. Will monitor diet advancement, weight status.
--- NOTE | 2022-11-21 10:58 | PM.PNORT ---
Progress Note: A&P Assessment and Plan (1) Bimalleolar fracture of left ankle: Qualifiers: Encounter type: initial encounter Fracture type: closed Qualified Code(s): S82.842A - Displaced bimalleolar fracture of left lower leg, initial encounter for closed fracture Code(s): S82.842A - Displaced bimalleolar fracture of left lower leg, initial encounter for closed fracture Status: Acute Plan 77-year-old female postop day 1 after ORIF of left ankle. Overall doing very well. She will maintain a nonweightbearing status of the left lower extremity for least 6 weeks. She would prefer to be discharged home so he scheduled appointment in our office for follow-up in 2 weeks for suture removal and new x-ray. She will call our office with any further questions or concerns prior to that scheduled follow-up. Subjective Subjective Date/Time Seen: 11/21/22 10:58 Post Op day: 1 Principal diagnosis: ORIF left ankle Interval history: 69-year-old female postop day 1 after ORIF of her left ankle. Doing very well this morning. No numbness or tingling in the foot. She is able to wiggle her toes without difficulty. She is aware of her nonweightbearing status for the size 6 weeks. She would prefer to be discharged to home and use a wheelchair for mobility. Review of Systems Review of Systems: All systems reviewed & are unremarkable except as noted in HPI and below Musculoskeletal: Musculoskeletal: Reports no additional musculoskeletal complaints and Reports as per HPI Exam Const: General: comfortable and no acute distress Resp: Effort & Inspection: normal respiratory effort Skin: General skin exam: normal color and no erythema Neuro: Sensory Exam: normal sensation Extrem: Other: Exam of the left ankle shows that is splinted and elevated. Capillary refill is less than 2 seconds in her left foot. No apparent drainage. Psych: Mental Status: mental status grossly normal Radiology Reports: Comments: EXAMINATION: XR surgery orthopedic DATE: 11/20/2022 14:55 INDICATION: ORIF left ankle fracture TECHNIQUE: 3 fluoroscopic images of the left ankle were obtained during procedure performed by Dr. Fisher. Radiologist was not present for the imaging or procedure. The amount of fluoroscopy time used during this procedure was 0.6 minutes.? COMPARISON: 11/18/2022 FINDINGS: Interval reduction and internal lateral plate and screw fixation of an oblique fracture of the distal left fibular metadiaphysis which is in near-anatomic alignment. Mildly comminuted transverse fracture of the medial malleolus remains unfixed and with mild residual distraction. Ankle mortise remains congruent with mild joint space narrowing at the tibiotalar articulation. IMPRESSION: 1. Near-anatomic alignment post reduction and lateral plate and screw fixation of fractures of the distal left fibular metadiaphysis. 2. Mild residual distraction of an unfixed mildly comminuted fracture of the medial malleolus. Ankle X-Ray 11/18/22 Hip and Pelvis X-Ray 05/07/22 Pelvis X-Ray 11/23/19 Shoulder X-Ray 01/05/20 Orthopedics Result Report 05/07/22 Lumbar Spine X-Ray 11/23/19 Objective Data Vital Signs Vital Signs: Vital Signs - 24 hr 11/20/22 11:45 11/20/22 12:00 11/20/22 12:00 Temperature 97.1 F L Pulse Rate 95 89 Respiratory Rate 20 Blood Pressure 111/66 Pulse Oximetry 96 Oxygen Delivery Room Air Oxygen Flow Rate 11/20/22 13:00 11/20/22 15:04 11/20/22 15:15 Temperature 98.0 F 99 F Pulse Rate 90 91 82 Respiratory Rate 16 13 20 Blood Pressure 109/72 147/73 H 166/102 H Pulse Oximetry 95 98 100 Oxygen Delivery Room Air Simple Face Mask Simple Face Mask Oxygen Flow Rate 10 10 11/20/22 15:30 11/20/22 15:45 11/20/22 16:00 Temperature Pulse Rate 89 89 84 Respiratory Rate 18 12 20 Blood Pressure 165/85 H 128/78 128/71 Pulse Oximetry 100 100 100 Oxygen Delivery Shara
[2022-11-21 11:47] LABS: Glucose Point of Care 263 mg/dl (65-105)
[2022-11-21] MEDS: INSULIN ASPART (*BKC) 100 UNITS/ML SUB-Q (12:47)
[2022-11-21] MEDS: ACETAMINOPHEN 325 MG TABLET 650 MG PO ×2 (12:57→22:11)
--- NOTE | 2022-11-21 13:41 | WPDANESPN ---
Anes - Prog Note Post-Op Date/Time: 11/21/22 13:41 Cardiovascular status: normal Respiratory status: normal Airway patency: baseline Mental status: baseline Post-Op hydration status: normal Vital Signs: Last Vital Signs Temp 97.9 F 11/21/22 12:00 Pulse 81 11/21/22 12:00 Resp 16 11/21/22 12:00 BP 105/56 L 11/21/22 12:00 Pulse Ox 97 11/21/22 12:00 O2 Del Method Room Air 11/21/22 08:40 O2 Flow Rate 10 11/20/22 15:15 Pain Score (VAS): 0/10 I/O: Intake & Output 11/20/22 11/21/22 11/21/22 23:59 07:59 15:59 Intake Total 2480 300 240 Output Total 950 Balance 2480 -650 240 Laboratory Tests 11/21/22 04:23 11/21/22 04:23 11/20/22 11/20/22 11/21/22 16:18 20:53 04:23 WBC 6.6 RBC 4.06 L Hgb 13.6 Hct 40.1 MCV 98.8 MCH 33.5 MCHC 33.9 RDW 11.5 Plt Count 184 MPV 9.7 Immature Gran % (Auto) 0.2 Neut % (Auto) 86.2 H Lymph % (Auto) 8.0 L [place] % (Auto) 5.6 Eos % (Auto) 0.0 Baso % (Auto) 0.0 L Lymph # (Auto) 0.53 L [place] # (Auto) 0.4 Eos # (Auto) 0.0 Baso # (Auto) 0.0 Abs Immat Gran (auto) 0.01 Absolute Neuts (auto) 5.7 Absolute Nucleated RBC 0.0 Nucleated RBC % 0.0 Sodium Potassium Chloride Carbon Dioxide Anion Gap BUN Creatinine Estim Creat Clear Calc Estimated GFR Glucose POC Capillary Glucose 209 H 242 H Calcium Total Bilirubin AST ALT Alkaline Phosphatase Total Creatine Kinase Total Protein Albumin 11/21/22 11/21/22 11/21/22 04:23 07:52 11:43 WBC RBC Hgb Hct MCV MCH MCHC RDW Plt Count MPV Immature Gran % (Auto) Neut % (Auto) Lymph % (Auto) [place] % (Auto) Eos % (Auto) Baso % (Auto) Lymph # (Auto) [place] # (Auto) Eos # (Auto) Baso # (Auto) Abs Immat Gran (auto) Absolute Neuts (auto) Absolute Nucleated RBC Nucleated RBC % Sodium 133 L Potassium 4.1 Chloride 96 L Carbon Dioxide 32 H Anion Gap 5 L BUN 18 H Creatinine 0.80 Estim Creat Clear Calc 53 Estimated GFR > 60 Glucose 182 H POC Capillary Glucose 185 H 263 H Calcium 8.6 Total Bilirubin 0.6 AST 61 H ALT 39 H Alkaline Phosphatase 83 Total Creatine Kinase 163 H Total Protein 6.0 L Albumin 3.7 Post-procedural complaints: none Patient Feedback: Patient satisfied with anesthetic care.
[2022-11-21 16:47] LABS: Glucose Point of Care 213 mg/dl (65-105)
--- NOTE | 2022-11-21 16:54 | PM.IMPN ---
Progress Note: A&P Assessment and Plan (1) Syncopal episodes: Code(s): R55 - Syncope and collapse Status: Acute Assessment and Plan: Patient with syncopal episode in the shower. She probably has retrograde amnesia. Head CT showing chronic CVAs but no acute findings. Cervical spine CT showing no fracture but showing multiple nodules at the lung apices. No hx of cancer but hx breast mass. CT chest showing granulomas. TSH and B12 normal here. Probably orthostatic HoTN causing the fall. Unable to do orthostatic vital signs at this time. Follow closely (2) Atrial fibrillation: Code(s): I48.91 - Unspecified atrial fibrillation Status: Acute Assessment and Plan: Patient has chronic AFib but with RVR. TSH normal. Metoprolol was restarted and advanced. Xarelto was held due to surgical intervention but now restarted. Diltiazem added. Heart rate better controlled. Follow on Tele. (3) Ankle fracture, left: Code(s): S82.892A - Other fracture of left lower leg, initial encounter for closed fracture Status: Deleted Assessment and Plan: Patient with left ankle pain with xray showing displaced fractures of the medial malleolus and distal fibular shaft with possible subtle posterior malleolus fracture. Related to the syncopal episode and fall. POD #1 from an ORIF left lateral malleolus repair. Pain controlled. Appreciate orthopedic surgery consult. Continue PT/OT. SNF placement planned (4) Fall: Code(s): W19.XXXA - Unspecified fall, initial encounter Status: Acute Assessment and Plan: As above (5) Diastolic heart failure: Code(s): I50.30 - Unspecified diastolic (congestive) heart failure Status: Acute Assessment and Plan: Echo in November 2020 showing EF 60-65% with abnormal diastolic function and mild-mod MR and TR. Lasix given once 11/18. Clinically she is euvolemic. As above (6) Elevated troponin: Code(s): R77.8 - Other specified abnormalities of plasma proteins Status: Acute Assessment and Plan: Troponin mildly elevated at 0.045. Could be related to mildly elevated TCK and/or from the AFib/RVR. EKG does not show any signifincat ST-T wave changes. Repeat Trop normal now. (7) Elevated LFTs: Code(s): R79.89 - Other specified abnormal findings of blood chemistry Status: Acute Assessment and Plan: AST 115 and ALT 46. Probably elevated related to the elevated TCK at 1044. UA shows only trace blood so do not feel need to start IV fluids at this point. LFTs trending down. Continue to hold statin therapy and trend LFTs. Will follow. (8) Essential hypertension: Code(s): I10 - Essential (primary) hypertension Status: Acute Assessment and Plan: Patient's blood pressure was reviewed on 11/21 Blood pressure remains well controlled. Will continue current medications. (9) Diabetes mellitus type 2, controlled, with complications: Code(s): E11.8 - Type 2 diabetes mellitus with unspecified complications Status: Acute Assessment and Plan: A1c 6.6. The patient's blood glucose was reviewed on 11/21 Glucose elevated more often now. Continue AccuCheks covering with sliding scale. Hypoglycemia protocol is available as needed. Continue to monitor. Add low dose Lantus (10) Bilateral carotid artery disease: Code(s): I73.9 - Peripheral vascular disease, unspecified Status: Acute Assessment and Plan: On Xarelto but does not appear to be on any anti-platelet agents. Hold atorvastatin given the elevated TCK. (11) Hypothyroidism: Code(s): E03.9 - Hypothyroidism, unspecified Status: Acute Assessment and Plan: TSH normal. Continue levothyroxine Plan DVT prophylaxis Xarelto Code status full code Subjective Date/time seen: 11/21/22 16:54 Interval history: 77yo female with AFib, DM, CVA and carotid disease here for s
[2022-11-21] MEDS: RIVAROXABAN 20 MG TABLET PO (19:52)
[2022-11-21] MEDS: LOPERAMIDE HCL 2 MG CAPSULE PO (20:55)
[2022-11-21] MEDS: INSULIN GLARGINE (*BKC) 100 UNITS/ML 8 UNITS SUB-Q (20:56)
[2022-11-21 21:21] LABS: Glucose Point of Care 200 mg/dl (65-105)
--- NOTE | 2022-11-21 22:08 | PC.NURSE ---
2200 RECEIVED PT FROM IMU. PT ARRIVED IN BED WITH ALL BELONGINGS.
--- NOTE | 2022-11-21 23:30 | PC.NURSE ---
This patient, Trisha Sparrow, was transferred to [[id number] ] on 11/21/22 at 2200. Personal belongings sent with patient. Report given to [Julia ]. Appropriate documentation sent with patient.
[2022-11-22] VITALS (8 sets, daily range): BP systolic 113–125; BP diastolic 64–85; PULSE 74–99; RESP 16–18; TEMP 36.4–37; O2SAT 94–100
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
--- NOTE | 2022-11-22 07:54 | PM.PNCARD ---
Progress Note: A&P Assessment and Plan (1) Syncopal episodes: Code(s): R55 - Syncope and collapse Status: Acute Assessment and Plan: Probably due to orthostatic syncope. Advise to drink about 2-3 water bottles a day. (2) Elevated troponin: Code(s): R77.8 - Other specified abnormalities of plasma proteins Status: Acute Assessment and Plan: Very mild and peaked at .045. Could be related to rapid atrial fib, diastolic dysfunction, or ankle fracture. 11/19/22 Echo: EF 60-65%, diastolic dysfunction (E/e' 10), biatrial enlargement, mild-mod MR/TR. (3) Atrial fibrillation with rapid ventricular response: Code(s): I48.91 - Unspecified atrial fibrillation Status: Acute Assessment and Plan: Rate is controlled currently. On Xarelto which was on hold for ankle surgery. Metoprolol Succinate increased to 75 mg daily and added Diltiazem 30 mg PO BID. Monitor BP and HR. Resumed Xarelto 20 mg last evening with a meal. May d/c home from cardiology standpoint. (4) Diastolic dysfunction: Code(s): I51.89 - Other ill-defined heart diseases Status: Acute Assessment and Plan: Euvolemic. (5) PVD (peripheral vascular disease): Code(s): I73.9 - Peripheral vascular disease, unspecified Status: Acute Assessment and Plan: Stable and mild. (6) Dyslipidemia: Code(s): E78.5 - Hyperlipidemia, unspecified Status: Acute Assessment and Plan: On Atorvastatin. (7) Essential hypertension: Code(s): I10 - Essential (primary) hypertension Status: Acute Assessment and Plan: Stable. (8) Bilateral carotid artery disease: Code(s): I73.9 - Peripheral vascular disease, unspecified Status: Acute Assessment and Plan: Stable. (9) Preop cardiovascular exam: Code(s): Z01.810 - Encounter for preprocedural cardiovascular examination Status: Acute Assessment and Plan: Post op day #2. EKG post op is unchanged. Subjective Date/time seen: 11/22/22 07:54 Interval history: Denies chest pain or sob. Exam Const: General: cooperative, healthy appearing and comfortable Orientation/consciousness: oriented to person, oriented to place and oriented to time Resp: Auscultation: clear to auscultation bilaterally, no crackles, no rales, no rhonchi and no wheezes Cardio: Rate: regular rate and tachycardic Rhythm: abnormal rhythm Heart sounds: no murmurs Peripheral pulses: dorsalis pedis present Neuro: General: oriented to person, oriented to place and oriented to time Extrem: Right lower extremity: no edema Other: Left leg is bandaged wrapped. Objective Data Vital Signs Vital Signs: Vital Signs - 24 hr 11/21/22 08:00 11/21/22 08:40 11/21/22 09:24 Temperature 97.4 F L Pulse Rate 94 94 Respiratory Rate 16 Blood Pressure 122/68 Pulse Oximetry 96 Oxygen Delivery Room Air 11/21/22 08:00 11/21/22 10:00 11/21/22 12:00 Temperature 97.9 F Pulse Rate 93 91 81 Respiratory Rate 16 Blood Pressure 105/56 L Pulse Oximetry 97 Oxygen Delivery 11/21/22 12:00 11/21/22 12:00 11/21/22 14:00 Temperature Pulse Rate 73 77 Respiratory Rate Blood Pressure Pulse Oximetry 97 Oxygen Delivery Room Air 11/21/22 16:00 11/21/22 16:00 11/21/22 18:00 Temperature 97.3 F L Pulse Rate 80 76 73 Respiratory Rate 16 Blood Pressure 133/72 Pulse Oximetry 97 Oxygen Delivery 11/21/22 16:00 11/21/22 20:00 11/21/22 20:00 Temperature 97.3 F L Pulse Rate 73 90 84 Respiratory Rate 16 16 Blood Pressure 104/66 Pulse Oximetry 97 99 Oxygen Delivery Room Air 11/22/22 00:00 11/21/22 23:00 11/22/22 00:00 Temperature 97.8 F Pulse Rate 91 86 99 Respiratory Rate 16 Blood Pressure 125/64 Pulse Oximetry 97 Oxygen Delivery 11/22/22 04:00 11/22/22 04:00 Temperature 97.6 F Pulse Rate 74 87 Respiratory Rate 16 Blood Pressure 12
[2022-11-22 07:56] LABS: Glucose Point of Care 115 mg/dl (65-105)
[2022-11-22] MEDS: CYANOCOBALAMIN 1,000 MCG TABLET 5000 MCG PO (08:42)
[2022-11-22] MEDS: dilTIAZem HCL 30 MG TABLET PO ×2 (08:42→20:02)
[2022-11-22] MEDS: SENNA/DOCUSATE SODIUM TABLET 2 TAB PO ×2 (08:42→17:47)
[2022-11-22] MEDS: polyethylene glycoL 3350 17 GM POWD.PACK PO (08:42)
[2022-11-22] MEDS: FAMOTIDINE 20 MG TABLET PO ×2 (08:42→20:02)
[2022-11-22] MEDS: ASCORBIC ACID 500 MG TABLET PO (08:43)
[2022-11-22] MEDS: DULoxetine HCL 60 MG CAPSULE.DR PO (08:43)
[2022-11-22] MEDS: ZINC SULFATE 220 MG CAPSULE PO (08:43)
[2022-11-22] MEDS: METOPROLOL SUCCINATE EXT REL 25 MG, METOPROLOL SUCCINATE EXT REL 50 MG 75 MG PO (08:43)
[2022-11-22] MEDS: ACETAMINOPHEN 325 MG TABLET 650 MG PO (10:56)
[2022-11-22] MEDS: INSULIN ASPART (*BKC) 100 UNITS/ML SUB-Q (12:17)
--- NOTE | 2022-11-22 12:25 | PM.PNORT ---
Progress Note: A&P Assessment and Plan (1) Bimalleolar fracture of left ankle: Qualifiers: Encounter type: initial encounter Fracture type: closed Qualified Code(s): S82.842A - Displaced bimalleolar fracture of left lower leg, initial encounter for closed fracture Code(s): S82.842A - Displaced bimalleolar fracture of left lower leg, initial encounter for closed fracture Status: Acute Plan Can continue to try to mobilize. No weight on left lower extremity for probably a minimum of six weeks. Dressing will stay in place until she comes in for follow-up two weeks from surgery. Likely placed into a cast at that point. Following. Subjective Subjective Date/Time Seen: 11/22/22 12:25 Post Op day: 2 (Status post ORIF left ankle fracture) Principal diagnosis: Dx: Interval history: 77-year-old female postop day two status post ORIF left ankle fracture. Had an episode of sundowning last night and is somewhat somnolent today but arousable. No pain complaints. Exam Const: General: cooperative; No alert or awake (Arousable) HENMT: Head: normal to inspection GI: Inspection: non-distended Extrem: Other: Exam of left lower extremity dressing is intact. Neurovascular status grossly intact to toes. Lower leg compartments supple. Objective Data Vital Signs Vital Signs: Vital Signs - 24 hr 11/21/22 14:00 11/21/22 16:00 11/21/22 16:00 Temperature 97.3 F L Pulse Rate 77 80 76 Respiratory Rate 16 Blood Pressure 133/72 Pulse Oximetry 97 Oxygen Delivery 11/21/22 18:00 11/21/22 16:00 11/21/22 20:00 Temperature Pulse Rate 73 73 90 Respiratory Rate 16 Blood Pressure Pulse Oximetry 97 Oxygen Delivery Room Air 11/21/22 20:00 11/22/22 00:00 11/21/22 23:00 Temperature 97.3 F L 97.8 F Pulse Rate 84 91 86 Respiratory Rate 16 16 Blood Pressure 104/66 125/64 Pulse Oximetry 99 97 Oxygen Delivery 11/22/22 00:00 11/22/22 04:00 11/22/22 04:00 Temperature 97.6 F Pulse Rate 99 74 87 Respiratory Rate 16 Blood Pressure 124/69 Pulse Oximetry 94 Oxygen Delivery 11/22/22 08:43 11/22/22 08:00 Temperature 98.3 F Pulse Rate 90 83 Respiratory Rate 18 Blood Pressure 113/74 Pulse Oximetry 100 Oxygen Delivery Intake/Output Intake/Output: Intake & Output 11/19/22 11/20/22 11/21/22 11/22/22 23:59 23:59 23:59 23:59 Intake Total 1470 / 1470 2880 / 2880 1890 / 1890 830 / 830 Output Total 1550 / 1550 1150 / 1150 1550 / 1550 300 / 300 Balance -80 / -80 1730 / 1730 340 / 340 530 / 530 Meds/Results Medications: Active Medications Generic Name Dose Route Start Last Admin Trade Name Freq PRN Reason Stop Dose Admin Acetaminophen 650 mg 11/20/22 16:01 11/22/22 10:56 Acetaminophen 325 Mg Tablet PO 650 mg Q6H PRN Administration Pain Rated 1-3 Hydrocodone Bitart/Acetaminophen 1 tab 11/20/22 16:01 Hydrocodone/Acetaminophen (*Crx) 5-325 Mg Tablet PO Q3H PRN Pain Rated 4-6 Hydrocodone Bitart/Acetaminophen 2 tab 11/20/22 16:01 Hydrocodone/Acetaminophen (*Crx) 5-325 Mg Tablet PO Q6H PRN Pain Rated 7-10 Ascorbic Acid 500 mg 11/19/22 09:00 11/22/22 08:43 Ascorbic Acid 500 Mg Tablet PO 500 mg DAILY GURMEET Administration Atorvastatin Calcium 20 mg 11/19/22 09:00 11/19/22 08:41 Atorvastatin 20 Mg Tablet PO 20 mg DAILY GURMEET Administration Cyanocobalamin 5,000 mcg 11/19/22 09:00 11/22/22 08:42 Cyanocobalamin 1,000 Mcg Tablet PO 5,000 mcg DAILY GURMEET Administration Dextrose 12.5 gm 11/19/22 10:29 Dextrose 50% 25 Gm/50 Ml Syringe IV PUSH PRN PRN Hypoglycemia Protocol Diltiazem HCl 30 mg 11/19/22 21:00 11/22/22 08:42 Diltiazem Hcl 30 Mg Tablet PO 30 mg Q12HR GURMEET Administration Duloxetine HCl 60 mg 11/19/22 09:00 11/22/22 08:43 Duloxetine Hcl 60 Mg Capsule.Dr PO 60 mg DAILY GURMEET Administration Famotidine 20 mg 11/20/22 21:00
[2022-11-22 12:41] LABS: Glucose Point of Care 223 mg/dl (65-105)
--- NOTE | 2022-11-22 15:25 | PM.IMPN ---
Progress Note: A&P Assessment and Plan (1) Confusion: Code(s): R41.0 - Disorientation, unspecified Status: Acute Assessment and Plan: Patient with confusion and hallucinations last night. She dod change rooms and she is on narctoics. Will adjust narcotics. Continue to re-orient. Follow (2) Syncopal episodes: Code(s): R55 - Syncope and collapse Status: Acute Assessment and Plan: Patient with syncopal episode in the shower. She probably has retrograde amnesia. Head CT showing chronic CVAs but no acute findings. Cervical spine CT showing no fracture but showing multiple nodules at the lung apices. No hx of cancer but hx breast mass. CT chest showing granulomas. TSH and B12 normal here. Probably orthostatic HoTN causing the fall. Unable to do orthostatic vital signs at this time. Follow closely (3) Atrial fibrillation: Code(s): I48.91 - Unspecified atrial fibrillation Status: Acute Assessment and Plan: Patient has chronic AFib but with RVR. TSH normal. Metoprolol was restarted and advanced. Xarelto was held due to surgical intervention but now restarted. Diltiazem added. Heart rate better controlled. Okay to stop Tele. (4) Ankle fracture, left: Code(s): S82.892A - Other fracture of left lower leg, initial encounter for closed fracture Status: Deleted Assessment and Plan: Patient with left ankle pain with xray showing displaced fractures of the medial malleolus and distal fibular shaft with possible subtle posterior malleolus fracture. Related to the syncopal episode and fall. POD #2 from an ORIF left lateral malleolus repair. Pain controlled. Appreciate orthopedic surgery consult. Continue PT/OT. SNF placement planned. Awaiting authorization (5) Fall: Code(s): W19.XXXA - Unspecified fall, initial encounter Status: Acute Assessment and Plan: As above (6) Diastolic heart failure: Code(s): I50.30 - Unspecified diastolic (congestive) heart failure Status: Acute Assessment and Plan: Echo in November 2020 showing EF 60-65% with abnormal diastolic function and mild-mod MR and TR. Lasix given once 11/18. Clinically she is euvolemic. As above (7) Elevated troponin: Code(s): R77.8 - Other specified abnormalities of plasma proteins Status: Acute Assessment and Plan: Troponin mildly elevated at 0.045. Could be related to mildly elevated TCK and/or from the AFib/RVR. EKG does not show any signifincat ST-T wave changes. Repeat Trop normal now. (8) Elevated LFTs: Code(s): R79.89 - Other specified abnormal findings of blood chemistry Status: Acute Assessment and Plan: AST 115 and ALT 46. Probably elevated related to the elevated TCK at 1044. UA shows only trace blood so do not feel need to start IV fluids at this point. LFTs trending down. Will follow. (9) Essential hypertension: Code(s): I10 - Essential (primary) hypertension Status: Acute Assessment and Plan: Patient's blood pressure was reviewed on 11/22 Blood pressure remains well controlled. Will continue current medications. (10) Diabetes mellitus type 2, controlled, with complications: Code(s): E11.8 - Type 2 diabetes mellitus with unspecified complications Status: Acute Assessment and Plan: A1c 6.6. The patient's blood glucose was reviewed on 11/22 Glucose better. Glucose 115 this morning. Continue AccuCheks covering with sliding scale. Hypoglycemia protocol is available as needed. Continue to monitor. Continue low dose Lantus. Add metformin (11) Bilateral carotid artery disease: Code(s): I73.9 - Peripheral vascular disease, unspecified Status: Acute Assessment and Plan: On Xarelto but does not appear to be on any anti-platelet agents. Atorvastatin was on hold given the elevated TCK. Okay to resume. (12) Hypothyroidism: Code(s): E03.9 - H
[2022-11-22 17:33] LABS: Glucose Point of Care 106 mg/dl (65-105)
[2022-11-22] MEDS: metFORMIN HCL 250 MG TABLET PO (17:47)
[2022-11-22] MEDS: RIVAROXABAN 20 MG TABLET PO (17:47)
[2022-11-22] MEDS: INSULIN GLARGINE (*BKC) 100 UNITS/ML 8 UNITS SUB-Q (20:02)
[2022-11-23] VITALS: BP 131/81; PULSE 80; RESP 16; TEMP 36.5; O2SAT 95
[2022-11-23 00:45] LABS: Glucose Point of Care 134 mg/dl (65-105)
[2022-11-23 04:00] VITALS: BP 131/76; PULSE 88; RESP 20; TEMP 36.5; O2SAT 94
[2022-11-23] MEDS: LEVOTHYROXINE SODIUM 25 MCG TABLET PO (07:08)
[2022-11-23 08:14] LABS: Glucose Point of Care 77 mg/dl (65-105)
[2022-11-23 08:38] VITALS: PULSE 88
[2022-11-23] MEDS: CYANOCOBALAMIN 1,000 MCG TABLET 5000 MCG PO (08:38)
[2022-11-23] MEDS: FAMOTIDINE 20 MG TABLET PO ×2 (08:38→20:14)
[2022-11-23] MEDS: ASCORBIC ACID 500 MG TABLET PO (08:38)
[2022-11-23] MEDS: METOPROLOL SUCCINATE EXT REL 25 MG, METOPROLOL SUCCINATE EXT REL 50 MG 75 MG PO (08:38)
[2022-11-23] MEDS: dilTIAZem HCL 30 MG TABLET PO ×2 (08:38→20:14)
[2022-11-23] MEDS: polyethylene glycoL 3350 17 GM POWD.PACK PO (08:38)
[2022-11-23] MEDS: DULoxetine HCL 60 MG CAPSULE.DR PO (08:38)
[2022-11-23] MEDS: SENNA/DOCUSATE SODIUM TABLET 2 TAB PO ×2 (08:38→17:12)
[2022-11-23] MEDS: ZINC SULFATE 220 MG CAPSULE PO (08:38)
[2022-11-23] MEDS: ATORVASTATIN 20 MG TABLET PO (08:39)
[2022-11-23] MEDS: metFORMIN HCL 250 MG TABLET PO ×2 (08:39→17:12)
[2022-11-23 12:23] LABS: Glucose Point of Care 149 mg/dl (65-105)
[2022-11-23 14:00] VITALS: BP 120/63; PULSE 69; RESP 16; TEMP 36.8; O2SAT 96
[2022-11-23 16:47] LABS: Glucose Point of Care 88 mg/dl (65-105)
--- NOTE | 2022-11-23 17:05 | PM.IMPN ---
Progress Note: A&P Assessment and Plan (1) Confusion: Code(s): R41.0 - Disorientation, unspecified Status: Acute Assessment and Plan: Patient with confusion and hallucinations the other night. Narcotics were stopped. Now AOx4. Follow (2) Syncopal episodes: Code(s): R55 - Syncope and collapse Status: Acute Assessment and Plan: Patient with syncopal episode in the shower. She probably has retrograde amnesia. Head CT showing chronic CVAs but no acute findings. Cervical spine CT showing no fracture but showing multiple nodules at the lung apices.CT chest showing granulomas. TSH and B12 normal here. Probably orthostatic HoTN causing the fall. Unable to do orthostatic vital signs at this time. Follow closely (3) Atrial fibrillation: Code(s): I48.91 - Unspecified atrial fibrillation Status: Acute Assessment and Plan: Patient has chronic AFib but with RVR. TSH normal. Metoprolol was restarted and advanced. Xarelto was held due to surgical intervention but now restarted. Diltiazem added. Heart rate better controlled. (4) Ankle fracture, left: Code(s): S82.892A - Other fracture of left lower leg, initial encounter for closed fracture Status: Deleted Assessment and Plan: Patient with left ankle pain with xray showing displaced fractures of the medial malleolus and distal fibular shaft with possible subtle posterior malleolus fracture. Related to the syncopal episode and fall. POD #3 from an ORIF left lateral malleolus repair. Pain controlled. Appreciate orthopedic surgery consult. Continue PT/OT. SNF placement planned. Awaiting authorization (5) Fall: Code(s): W19.XXXA - Unspecified fall, initial encounter Status: Acute Assessment and Plan: As above (6) Diastolic heart failure: Code(s): I50.30 - Unspecified diastolic (congestive) heart failure Status: Acute Assessment and Plan: Echo in November 2020 showing EF 60-65% with abnormal diastolic function and mild-mod MR and TR. Lasix given once 11/18. Clinically she is euvolemic. As above (7) Elevated troponin: Code(s): R77.8 - Other specified abnormalities of plasma proteins Status: Acute Assessment and Plan: Troponin mildly elevated at 0.045. Could be related to mildly elevated TCK and/or from the AFib/RVR. EKG does not show any signifincat ST-T wave changes. Repeat Trop normal (8) Elevated LFTs: Code(s): R79.89 - Other specified abnormal findings of blood chemistry Status: Acute Assessment and Plan: AST 115 and ALT 46. Probably elevated related to the elevated TCK at 1044. UA shows only trace blood so do not feel need to start IV fluids at this point. LFTs trending down. Will follow. (9) Essential hypertension: Code(s): I10 - Essential (primary) hypertension Status: Acute Assessment and Plan: Patient's blood pressure was reviewed on 11/23 Blood pressure remains well controlled. Will continue current medications. (10) Diabetes mellitus type 2, controlled, with complications: Code(s): E11.8 - Type 2 diabetes mellitus with unspecified complications Status: Acute Assessment and Plan: A1c 6.6. The patient's blood glucose was reviewed on 11/23 Glucose better controlled. Glucose 77 this morning. Continue AccuCheks covering with sliding scale. Hypoglycemia protocol is available as needed. Stop Lantus. Continue metformin (11) Bilateral carotid artery disease: Code(s): I73.9 - Peripheral vascular disease, unspecified Status: Acute Assessment and Plan: On Xarelto but does not appear to be on any anti-platelet agents. Atorvastatin was on hold given the elevated TCK but now resumed (12) Hypothyroidism: Code(s): E03.9 - Hypothyroidism, unspecified Status: Acute Assessment and Plan: TSH normal. Continue levothyroxine Plan DVT prop
[2022-11-23] MEDS: RIVAROXABAN 20 MG TABLET PO (17:12)
[2022-11-23 21:19] VITALS: BP 118/63; PULSE 83; RESP 16; TEMP 36.5; O2SAT 96
[2022-11-24 06:00] VITALS: BP 126/52; PULSE 73; RESP 18; TEMP 36.5; O2SAT 97
[2022-11-24] MEDS: ACETAMINOPHEN 325 MG TABLET 650 MG PO ×2 (06:10→13:46)
[2022-11-24] MEDS: LEVOTHYROXINE SODIUM 25 MCG TABLET PO (06:11)
--- NOTE | 2022-11-24 07:54 | PM.PNCARD ---
Progress Note: A&P Assessment and Plan (1) Syncopal episodes: Code(s): R55 - Syncope and collapse Status: Acute Assessment and Plan: Probably due to orthostatic syncope. Advise to drink about 2-3 water bottles a day. (2) Elevated troponin: Code(s): R77.8 - Other specified abnormalities of plasma proteins Status: Acute Assessment and Plan: Very mild and peaked at .045. Could be related to rapid atrial fib, diastolic dysfunction, or ankle fracture. 11/19/22 Echo: EF 60-65%, diastolic dysfunction (E/e' 10), biatrial enlargement, mild-mod MR/TR. (3) Atrial fibrillation with rapid ventricular response: Code(s): I48.91 - Unspecified atrial fibrillation Status: Acute Assessment and Plan: Rate is controlled currently. On Xarelto which was on hold for ankle surgery. Metoprolol Succinate increased to 75 mg daily and added Diltiazem 30 mg PO BID. Monitor BP and HR. Stop Diltiazem since HR and BP very well controlled. Resumed Xarelto 20 mg last evening with a meal. May d/c home from cardiology standpoint. Have her f/u with me in 2 weeks after discharge. (4) Diastolic dysfunction: Code(s): I51.89 - Other ill-defined heart diseases Status: Acute Assessment and Plan: Euvolemic. (5) PVD (peripheral vascular disease): Code(s): I73.9 - Peripheral vascular disease, unspecified Status: Acute Assessment and Plan: Stable and mild. (6) Dyslipidemia: Code(s): E78.5 - Hyperlipidemia, unspecified Status: Acute Assessment and Plan: On Atorvastatin. (7) Essential hypertension: Code(s): I10 - Essential (primary) hypertension Status: Acute Assessment and Plan: Stable. (8) Bilateral carotid artery disease: Code(s): I73.9 - Peripheral vascular disease, unspecified Status: Acute Assessment and Plan: Stable. (9) Preop cardiovascular exam: Code(s): Z01.810 - Encounter for preprocedural cardiovascular examination Status: Acute Assessment and Plan: Post op day #2. EKG post op is unchanged. Subjective Date/time seen: 11/24/22 07:54 Interval history: Denies chest pain or sob. Exam Const: General: cooperative, healthy appearing and comfortable Orientation/consciousness: oriented to person, oriented to place and oriented to time Resp: Auscultation: clear to auscultation bilaterally, no crackles, no rales, no rhonchi and no wheezes Cardio: Rate: regular rate and tachycardic Rhythm: abnormal rhythm Heart sounds: no murmurs Peripheral pulses: dorsalis pedis present Neuro: General: oriented to person, oriented to place and oriented to time Extrem: Right lower extremity: no edema Other: Left leg is bandaged wrapped. Objective Data Vital Signs Vital Signs: Vital Signs - 24 hr 11/23/22 08:38 11/23/22 08:43 11/23/22 14:00 Temperature 98.2 F Pulse Rate 88 69 Respiratory Rate 16 Blood Pressure 120/63 Pulse Oximetry 96 Oxygen Delivery Room Air 11/23/22 21:19 11/23/22 20:00 11/24/22 06:00 Temperature 97.7 F 97.7 F Pulse Rate 83 73 Respiratory Rate 16 18 Blood Pressure 118/63 126/52 L Pulse Oximetry 96 97 Oxygen Delivery Room Air 11/24/22 06:00 Temperature 97.7 F Pulse Rate 73 Respiratory Rate 18 Blood Pressure 126/52 L Pulse Oximetry 97 Oxygen Delivery Intake/Output Intake/Output: Intake & Output 11/21/22 11/22/22 11/23/22 11/24/22 23:59 23:59 23:59 23:59 Intake Total 1890 1310 1760 250 Output Total 1550 600 300 200 Balance 370 692 2835 50 Meds/Results Medications: Active Medications Generic Name Dose Route Start Last Admin Trade Name Freq PRN Reason Stop Dose Admin Acetaminophen 650 mg 11/22/22 15:37 11/24/22 06:10 Acetaminophen 325 Mg Tablet PO 650 mg Q6H PRN Administration Pain Rated 5 or Less Hydrocodone Bitart/Acetaminophen 1 tab 11/22/22 15:37 Hydrocodone/Acetaminophen (*Crx)
[2022-11-24 08:22] LABS: Glucose Point of Care 87 mg/dl (65-105)
--- NOTE | 2022-11-24 08:30 | PCPTNOTE ---
Attempted to see patient for PT, however patient was eating breakfast.
--- NOTE | 2022-11-24 08:48 | PM.IMPN ---
Progress Note: A&P Assessment and Plan (1) Confusion: Code(s): R41.0 - Disorientation, unspecified Status: Acute Assessment and Plan: Patient with confusion and hallucinations the other night. Narcotics were stopped. Now AOx4. Follow (2) Syncopal episodes: Code(s): R55 - Syncope and collapse Status: Acute Assessment and Plan: Patient with syncopal episode in the shower. She probably has retrograde amnesia. Head CT showing chronic CVAs but no acute findings. Cervical spine CT showing no fracture but showing multiple nodules at the lung apices.CT chest showing granulomas. TSH and B12 normal here. Probably orthostatic HoTN causing the fall. Unable to do orthostatic vital signs at this time. Follow closely (3) Atrial fibrillation: Code(s): I48.91 - Unspecified atrial fibrillation Status: Acute Assessment and Plan: Patient has chronic AFib but with RVR. TSH normal. Metoprolol was restarted and advanced. Xarelto was held due to surgical intervention but now restarted. Diltiazem was added now held. Heart rate better controlled. (4) Ankle fracture, left: Code(s): S82.892A - Other fracture of left lower leg, initial encounter for closed fracture Status: Deleted Assessment and Plan: Patient with left ankle pain with xray showing displaced fractures of the medial malleolus and distal fibular shaft with possible subtle posterior malleolus fracture. Related to the syncopal episode and fall. POD #4 from an ORIF left lateral malleolus repair. Pain controlled. Appreciate orthopedic surgery consult. Continue PT/OT. SNF placement planned. Awaiting authorization (5) Fall: Code(s): W19.XXXA - Unspecified fall, initial encounter Status: Acute Assessment and Plan: As above (6) Diastolic heart failure: Code(s): I50.30 - Unspecified diastolic (congestive) heart failure Status: Acute Assessment and Plan: Echo in November 2020 showing EF 60-65% with abnormal diastolic function and mild-mod MR and TR. Lasix given once 11/18. Clinically she is euvolemic. As above (7) Elevated troponin: Code(s): R77.8 - Other specified abnormalities of plasma proteins Status: Acute Assessment and Plan: Troponin mildly elevated at 0.045. Could be related to mildly elevated TCK and/or from the AFib/RVR. EKG does not show any signifincat ST-T wave changes. Repeat Trop normal (8) Elevated LFTs: Code(s): R79.89 - Other specified abnormal findings of blood chemistry Status: Acute Assessment and Plan: AST 115 and ALT 46. Probably elevated related to the elevated TCK at 1044. UA shows only trace blood so do not feel need to start IV fluids at this point. LFTs trending down. Will follow. (9) Essential hypertension: Code(s): I10 - Essential (primary) hypertension Status: Acute Assessment and Plan: Patient's blood pressure was reviewed on 11/24 Blood pressure remains well controlled. Will continue current medications. (10) Diabetes mellitus type 2, controlled, with complications: Code(s): E11.8 - Type 2 diabetes mellitus with unspecified complications Status: Acute Assessment and Plan: A1c 6.6. The patient's blood glucose was reviewed on 11/24 Glucose better controlled. Glucose 77 this morning. Continue AccuCheks covering with sliding scale. Hypoglycemia protocol is available as needed. Continue metformin (11) Bilateral carotid artery disease: Code(s): I73.9 - Peripheral vascular disease, unspecified Status: Acute Assessment and Plan: On Xarelto but does not appear to be on any anti-platelet agents. Atorvastatin was on hold given the elevated TCK but now resumed (12) Hypothyroidism: Code(s): E03.9 - Hypothyroidism, unspecified Status: Acute Assessment and Plan: TSH normal. Continue levothyroxine Plan DVT prop
[2022-11-24 09:34] VITALS: BP 107/67; PULSE 81
[2022-11-24] MEDS: metFORMIN HCL 250 MG TABLET PO ×2 (09:36→17:53)
[2022-11-24] MEDS: ASCORBIC ACID 500 MG TABLET PO (09:37)
[2022-11-24] MEDS: ATORVASTATIN 20 MG TABLET PO (09:37)
[2022-11-24] MEDS: CYANOCOBALAMIN 1,000 MCG TABLET 5000 MCG PO (09:38)
[2022-11-24] MEDS: DULoxetine HCL 60 MG CAPSULE.DR PO (09:39)
[2022-11-24 09:40] VITALS: PULSE 81
[2022-11-24] MEDS: FAMOTIDINE 20 MG TABLET PO ×2 (09:40→20:50)
[2022-11-24] MEDS: METOPROLOL SUCCINATE EXT REL 25 MG, METOPROLOL SUCCINATE EXT REL 50 MG 75 MG PO (09:40)
[2022-11-24] MEDS: ZINC SULFATE 220 MG CAPSULE PO (09:41)
--- NOTE | 2022-11-24 11:57 | PCNFU ---
Nutrition Follow-Up Complete: Inadequate oral intake related to NPO status (surgery) as evidenced by no intake since admission. 1. Diet will be advanced in the next 48-72 hours. 2. Patient weight will remain within 2% of admission weight (71.3 kg) through follow-up. Patient has met goals. No new goals. Pt current nutrition is Heart Healthy. Last recorded weight is 71.1 kg. Bowel Motility:+BM reported 11/24 Labs Reviewed:No new labs to report. Meds Noted:Vit C,Lipitor, Glucophage, Zinc Skin: WNL Additional Notes: Patient remains on a heart healthy diet. Oral Intake has been 75-100% of meals. diet supplements continue with Ensure Compact BID providing an additional 220 kcals and 9 gms protein. Agree with diet orders. Will monitor diet advancement, weight status, labs, meds every 7 days.
[2022-11-24 12:36] LABS: Glucose Point of Care 100 mg/dl (65-105)
[2022-11-24 13:51] VITALS: BP 131/88; PULSE 95; RESP 18; TEMP 36.4; O2SAT 98
--- NOTE | 2022-11-24 15:01 | PM.DS ---
DS: Admitting Diagnosis Discharge Date 11/24/22 Admitting Diagnosis Fall DS: Discharge Diagnosis Discharge Diagnosis (1) Confusion: Code(s): R41.0 - Disorientation, unspecified Status: Acute (2) Syncopal episodes: Code(s): R55 - Syncope and collapse Status: Acute (3) Atrial fibrillation: Code(s): I48.91 - Unspecified atrial fibrillation Status: Acute (4) Ankle fracture, left: Code(s): S82.892A - Other fracture of left lower leg, initial encounter for closed fracture Status: Deleted (5) Fall: Code(s): W19.XXXA - Unspecified fall, initial encounter Status: Acute (6) Diastolic heart failure: Code(s): I50.30 - Unspecified diastolic (congestive) heart failure Status: Acute (7) Elevated troponin: Code(s): R77.8 - Other specified abnormalities of plasma proteins Status: Acute (8) Elevated LFTs: Code(s): R79.89 - Other specified abnormal findings of blood chemistry Status: Acute (9) Essential hypertension: Code(s): I10 - Essential (primary) hypertension Status: Acute (10) Diabetes mellitus type 2, controlled, with complications: Code(s): E11.8 - Type 2 diabetes mellitus with unspecified complications Status: Acute (11) Bilateral carotid artery disease: Code(s): I73.9 - Peripheral vascular disease, unspecified Status: Acute (12) Hypothyroidism: Code(s): E03.9 - Hypothyroidism, unspecified Status: Acute DS: Summary Hospital Course Reason for hospitalization: 77yo female with AFib, DM, CVA and carotid disease here for syncope with fall and found to have left ankle fracture. Please see H&P for details. Hospital Course: Patient with syncopal episode in the shower. She probably had retrograde amnesia. Head CT showing chronic CVAs but no acute findings. Cervical spine CT showing no fracture but showing multiple nodules at the lung apices.CT chest showing granulomas. TSH and B12 normal here. Probably orthostatic HoTN causing the fall. Unable to do orthostatic vital signs at this time. Patient has chronic AFib but with RVR. Echo in November 2020 showing EF 60-65% with abnormal diastolic function and mild-mod MR and TR. Lasix given once 11/18. Clinically she is euvolemic. Troponin mildly elevated at 0.045. Could be related to mildly elevated TCK and/or from the AFib/RVR. EKG did not show any significant ST-T wave changes. Repeat Trop normal. Metoprolol was restarted and advanced. Xarelto was held due to surgical intervention but now restarted. Diltiazem was added but now stopped. Heart rate better controlled.?Patient with left ankle pain on admission with xray showing displaced fractures of the medial malleolus and distal fibular shaft with possible subtle posterior malleolus fracture. Related to the syncopal episode and fall. Now s/p ORIF left lateral malleolus repair. Pain well controlled. Appreciate orthopedic surgery consult. She worked with PT/OT. Patient with confusion and hallucinations one evening. Narcotics were stopped. Now AOx4. AST 115 and ALT 46. Probably elevated related to the elevated TCK at 1044. UA shows only trace blood. A1c 6.6. The patient's blood glucose was monitored with AccuCheks covering with sliding scale.? Hypoglycemia protocol was available as needed.?Metformin added. She did well with therapy. She was accepted with SNF as was discharged on 11/24/22 Status at Discharge Cognitive/behavioral status at discharge: stable Time Spent with Patient Time attestation: Total time spent providing and/or coordinating discharge services:35 minutes Time spent: Greater than 30 minutes Exam Narrative: AF 97.7 126/52 73 18 97% ra Gen - NARD Chest - lungs clear anteriorly. nml RR CV - irregularly irregular Abd - Soft, NT/ND, Positive BS Ext - Left ankle in soft cast that is not tight at the thigh. Neuro - Able to wiggle toes and normal sensation to the toes.
[2022-11-24 16:08] LABS: EDCOVIDSCREEN Positive (Negative)
--- NOTE | 2022-11-24 16:15 | PM.PNORT ---
Progress Note: A&P Assessment and Plan (1) Bimalleolar fracture of left ankle: Qualifiers: Encounter type: initial encounter Fracture type: closed Qualified Code(s): S82.842A - Displaced bimalleolar fracture of left lower leg, initial encounter for closed fracture Code(s): S82.842A - Displaced bimalleolar fracture of left lower leg, initial encounter for closed fracture Status: Acute Plan No change in previous treatment plan. Continue to mobilize. No weight on left lower extremity for minimum of six weeks. Dressing will stay in place until she comes in for follow-up two weeks from surgery. This has been scheduled at our office. Likely place into a cast at that point. Subjective Subjective Date/Time Seen: 11/24/22 16:15 Post Op day: 4 Principal diagnosis: Status post ORIF left ankle fracture Interval history: 77-year-old female postop day 4 status post ORIF left ankle fracture. She continues to decline pain in the left ankle. No new issues or concerns today. Review of Systems Review of Systems: All systems reviewed & are unremarkable except as noted in HPI and below Musculoskeletal: Musculoskeletal: Reports no additional musculoskeletal complaints and Reports as per HPI Exam Const: General: cooperative, alert and awake; No in distress Orientation/consciousness: patient oriented x3 HENMT: Head: normal to inspection Resp: Effort & Inspection: normal respiratory effort GI: Inspection: non-distended Skin: General skin exam: normal color and no erythema Neuro: Sensory Exam: normal sensation Extrem: Other: Exam of the left ankle shows that is splinted and elevated. Capillary refill is less than 2 seconds in her left foot. No apparent drainage. Neurovascular status left lower extremity intact. Psych: Mental Status: mental status grossly normal Objective Data Vital Signs Vital Signs: Vital Signs - 24 hr 11/23/22 21:19 11/23/22 20:00 11/24/22 06:00 Temperature 97.7 F 97.7 F Pulse Rate 83 73 Respiratory Rate 16 18 Blood Pressure 118/63 126/52 L Pulse Oximetry 96 97 Oxygen Delivery Room Air 11/24/22 06:00 11/24/22 09:34 11/24/22 09:40 Temperature 97.7 F Pulse Rate 73 81 81 Respiratory Rate 18 Blood Pressure 126/52 L 107/67 Pulse Oximetry 97 Oxygen Delivery 11/24/22 09:30 11/24/22 13:51 Temperature 97.5 F L Pulse Rate 95 Respiratory Rate 18 Blood Pressure 131/88 Pulse Oximetry 98 Oxygen Delivery Room Air Intake/Output Intake/Output: Intake & Output 11/21/22 11/22/22 11/23/22 11/24/22 23:59 23:59 23:59 23:59 Intake Total 1890 1310 1760 1080 Output Total 1550 600 300 200 Balance 188 553 8185 880 Meds/Results Medications: Active Medications Generic Name Dose Route Start Last Admin Trade Name Freq PRN Reason Stop Dose Admin Acetaminophen 650 mg 11/22/22 15:37 11/24/22 13:46 Acetaminophen 325 Mg Tablet PO 650 mg Q6H PRN Administration Pain Rated 5 or Less Hydrocodone Bitart/Acetaminophen 1 tab 11/22/22 15:37 Hydrocodone/Acetaminophen (*Crx) 5-325 Mg Tablet PO Q3H PRN Pain Rated 6 or Greater Ascorbic Acid 500 mg 11/19/22 09:00 11/24/22 09:37 Ascorbic Acid 500 Mg Tablet PO 500 mg DAILY GURMEET Administration Atorvastatin Calcium 20 mg 11/19/22 09:00 11/24/22 09:37 Atorvastatin 20 Mg Tablet PO 20 mg DAILY GURMEET Administration Cyanocobalamin 5,000 mcg 11/19/22 09:00 11/24/22 09:38 Cyanocobalamin 1,000 Mcg Tablet PO 5,000 mcg DAILY GURMEET Administration Dextrose 12.5 gm 11/19/22 10:29 Dextrose 50% 25 Gm/50 Ml Syringe IV PUSH PRN PRN Hypoglycemia Protocol Duloxetine HCl 60 mg 11/19/22 09:00 11/24/22 09:39 Duloxetine Hcl 60 Mg Capsule.Dr PO 60 mg DAILY GURMEET Administration Famotidine 20 mg 11/20/22 21:00 11/24/22 09:40 Famotidine 20 Mg Tablet PO 20 mg Q12HR GURMEET Administration Glucagon 1 mg 11/19/22 10:29 Glucag
[2022-11-24 17:16] LABS: Influenza A QL RT-PCR Negative (Negative); Influenza B QL RT-PCR Negative (Negative); RSV RNA, RT-PCR Negative (Negative); SARS-CoV-2 RNA PCR Positive
[2022-11-24 17:31] LABS: Glucose Point of Care 130 mg/dl (65-105)
--- NOTE | 2022-11-24 17:44 | PCCCNOTE ---
Rapid and PCR positive, transformation manager Radha spoke w/ Aida at [facility] that patient can not be accepted due to + status. Called to [employer] gr[employer] watch parts Renay and advised that patient can NOT discharge due and to cancel dc. Renay verbalizes understanding and states that the bedside RN is on the phone with family now.
[2022-11-24] MEDS: RIVAROXABAN 20 MG TABLET PO (17:53)
[2022-11-24 22:21] VITALS: BP 126/73; PULSE 68; RESP 21; TEMP 36.4; O2SAT 100
[2022-11-24 23:05] LABS: Glucose Point of Care 137 mg/dl (65-105)
[2022-11-25] MEDS: LEVOTHYROXINE SODIUM 25 MCG TABLET PO (05:57)
[2022-11-25 06:00] VITALS: BP 141/89; PULSE 91; RESP 18; TEMP 36.7; O2SAT 96
[2022-11-25 08:12] LABS: Glucose Point of Care 168 mg/dl (65-105)
[2022-11-25 10:41] VITALS: PULSE 90
[2022-11-25] MEDS: METOPROLOL SUCCINATE EXT REL 25 MG, METOPROLOL SUCCINATE EXT REL 50 MG 75 MG PO (10:41)
[2022-11-25] MEDS: FAMOTIDINE 20 MG TABLET PO ×2 (10:41→22:20)
[2022-11-25] MEDS: ZINC SULFATE 220 MG CAPSULE PO (10:41)
[2022-11-25] MEDS: SENNA/DOCUSATE SODIUM TABLET 2 TAB PO ×2 (10:42→16:58)
[2022-11-25] MEDS: ASCORBIC ACID 500 MG TABLET PO (10:42)
[2022-11-25] MEDS: metFORMIN HCL 250 MG TABLET PO ×2 (10:43→16:58)
[2022-11-25] MEDS: ATORVASTATIN 20 MG TABLET PO (10:43)
[2022-11-25] MEDS: DULoxetine HCL 60 MG CAPSULE.DR PO (10:43)
[2022-11-25] MEDS: CYANOCOBALAMIN 1,000 MCG TABLET 5000 MCG PO (10:43)
[2022-11-25 12:10] LABS: Glucose Point of Care 119 mg/dl (65-105)
[2022-11-25 13:59] VITALS: BP 115/73; PULSE 94; RESP 17; TEMP 36.8; O2SAT 95
--- NOTE | 2022-11-25 16:09 | PM.IMPN ---
Progress Note: A&P Assessment and Plan (1) COVID: Code(s): U07.1 - COVID-19 Status: Acute Assessment and Plan: Patient tested positive for COVID. She was not tested on admission. Chest x-ray is clear. Continue supportive care. This has delayed her discharge. Patient needs reauthorization for placement. (2) Confusion: Code(s): R41.0 - Disorientation, unspecified Status: Acute Assessment and Plan: Patient with confusion and hallucinations the other night. Narcotics were stopped. Now AOx4. Follow (3) Syncopal episodes: Code(s): R55 - Syncope and collapse Status: Acute Assessment and Plan: Patient with syncopal episode in the shower. She probably has retrograde amnesia. Head CT showing chronic CVAs but no acute findings. Cervical spine CT showing no fracture but showing multiple nodules at the lung apices.CT chest showing granulomas. TSH and B12 normal here. Probably orthostatic HoTN causing the fall. Follow (4) Atrial fibrillation: Code(s): I48.91 - Unspecified atrial fibrillation Status: Acute Assessment and Plan: Patient has chronic AFib but with RVR. TSH normal. Metoprolol was restarted and advanced. Xarelto was held due to surgical intervention but now restarted. Diltiazem was added now held. Heart rate better controlled. (5) Ankle fracture, left: Code(s): S82.892A - Other fracture of left lower leg, initial encounter for closed fracture Status: Deleted Assessment and Plan: Patient with left ankle pain with xray showing displaced fractures of the medial malleolus and distal fibular shaft with possible subtle posterior malleolus fracture. Related to the syncopal episode and fall. POD #5 from an ORIF left lateral malleolus repair. Pain controlled. Appreciate orthopedic surgery consult. Continue PT/OT. SNF placement planned. Awaiting authorization again (6) Fall: Code(s): W19.XXXA - Unspecified fall, initial encounter Status: Acute Assessment and Plan: As above (7) Diastolic heart failure: Code(s): I50.30 - Unspecified diastolic (congestive) heart failure Status: Acute Assessment and Plan: Echo in November 2020 showing EF 60-65% with abnormal diastolic function and mild-mod MR and TR. Lasix given once 11/18. Clinically she is euvolemic. As above (8) Elevated troponin: Code(s): R77.8 - Other specified abnormalities of plasma proteins Status: Acute Assessment and Plan: Troponin mildly elevated at 0.045. Could be related to mildly elevated TCK and/or from the AFib/RVR. EKG does not show any signifincat ST-T wave changes. Echo as above. Repeat Trop normal (9) Elevated LFTs: Code(s): R79.89 - Other specified abnormal findings of blood chemistry Status: Acute Assessment and Plan: AST 115 and ALT 46. Probably elevated related to the elevated TCK at 1044. UA shows only trace blood so do not feel need to start IV fluids at this point. LFTs trending down. TCK now 163. Resolved. (10) Essential hypertension: Code(s): I10 - Essential (primary) hypertension Status: Acute Assessment and Plan: Patient's blood pressure was reviewed on 11/25 Blood pressure remains well controlled. Will continue current medications. (11) Diabetes mellitus type 2, controlled, with complications: Code(s): E11.8 - Type 2 diabetes mellitus with unspecified complications Status: Acute Assessment and Plan: A1c 6.6. The patient's blood glucose was reviewed on 11/25 Glucose better controlled. Continue AccuCheks covering with sliding scale. Hypoglycemia protocol is available as needed. Continue metformin (12) Bilateral carotid artery disease: Code(s): I73.9 - Peripheral vascular disease, unspecified Status: Acute Assessment and Plan: On Xarelto but does not appear to be on any anti-platelet agents. Ator
[2022-11-25] MEDS: RIVAROXABAN 20 MG TABLET PO (16:58)
[2022-11-25 16:59] LABS: Glucose Point of Care 115 mg/dl (65-105)
[2022-11-25 22:00] VITALS: BP 123/61; PULSE 99; RESP 18; TEMP 36.4; O2SAT 95
[2022-11-26 02:46] LABS: Glucose Point of Care 160 mg/dl (65-105)
[2022-11-26 06:00] VITALS: BP 114/61; PULSE 97; RESP 18; TEMP 36.6; O2SAT 97
[2022-11-26] MEDS: LEVOTHYROXINE SODIUM 25 MCG TABLET PO (06:21)
[2022-11-26] MEDS: CYANOCOBALAMIN 1,000 MCG TABLET 5000 MCG PO (08:13)
[2022-11-26] MEDS: metFORMIN HCL 250 MG TABLET PO ×2 (08:13→16:35)
[2022-11-26] MEDS: ASCORBIC ACID 500 MG TABLET PO (08:13)
[2022-11-26] MEDS: ATORVASTATIN 20 MG TABLET PO (08:13)
[2022-11-26 08:14] VITALS: PULSE 96
[2022-11-26] MEDS: ZINC SULFATE 220 MG CAPSULE PO (08:14)
[2022-11-26] MEDS: FAMOTIDINE 20 MG TABLET PO ×2 (08:14→20:22)
[2022-11-26] MEDS: SENNA/DOCUSATE SODIUM TABLET 2 TAB PO ×2 (08:14→16:35)
[2022-11-26] MEDS: METOPROLOL SUCCINATE EXT REL 25 MG, METOPROLOL SUCCINATE EXT REL 50 MG 75 MG PO (08:14)
[2022-11-26] MEDS: DULoxetine HCL 60 MG CAPSULE.DR PO (08:14)
[2022-11-26] MEDS: ACETAMINOPHEN 325 MG TABLET 650 MG PO (08:35)
[2022-11-26] MEDS: polyethylene glycoL 3350 17 GM POWD.PACK PO (08:36)
[2022-11-26 10:00] LABS: Glucose Point of Care 133 mg/dl (65-105)
[2022-11-26 10:44] LABS: Basophils Percent Auto 0.2 % (0.2-1.2); Eosinophils Absolute Auto 0.1 K/mm3 (0-0.3); Eosinophils Percent Auto 0.9 % (0-4.4); Hematocrit 43.7 % (37.0-47.0); Hemoglobin 14.6 g/dL (12.0-15.0); Immature Granulocyte Absolute 0.06 K/mm3 (0.00-0.031); Immature Granulocyte Percent A 0.6 % (0-0.5); Lymphocytes Percent Auto 15.6 % (18.3-44.2); Mean Corpuscular HGB Conc 33.4 g/dl (32-36); Mean Corpuscular Hemoglobin 34.5 pg (26-34); Mean Corpuscular Volume 103.3 fl (80-100); Mean Platelet Volume 9.2 fl (7.4-10.4); Monocytes Absolute Auto 1.1 K/mm3 (0.1-0.6); Neutrophils Absolute Auto 6.9 K/mm3 (1.3-6.7); Neutrophils Percent Auto 71.7 % (45.5-73.1); Platelet Count Result 383 k/mm3 (150-375); Red Blood Count 4.23 M/mm3 (4.2-5.4); Red Cell Distribution Width 11.7 % (11.5-14.5); White Blood Count 9.6 K/mm3 (4.5-10.0)
[2022-11-26 11:04] LABS: Alanine Aminotransferase 25 U/L (6-35); Albumin Level 3.9 g/dL (3.5-5.1); Alkaline Phosphatase 97 U/L (38-126); Anion Gap 8 mmol/L (8-16); Aspartate Amino Transferase 28 U/L (14-36); Bilirubin,Total 1.2 mg/dL (0.2-1.3); Blood Urea Nitrogen 16 mg/dL (7-17); Calcium 8.7 mg/dL (8.4-10.2); Carbon Dioxide 33 mmol/L (22-30); Chloride 96 mmol/L (98-107); Estimated CRCL calculation 43 ml/min; Estimated Glomerular Filt Rate > 60; Glucose 185 mg/dL (65-110); Sodium 137 mmol/L (137-145)
[2022-11-26 11:27] VITALS: BP 108/52; PULSE 95; RESP 18; TEMP 36.4; O2SAT 95
[2022-11-26 12:26] LABS: Glucose Point of Care 131 mg/dl (65-105)
--- NOTE | 2022-11-26 14:31 | PM.IMPN ---
Progress Note: A&P Assessment and Plan (1) COVID: Code(s): U07.1 - COVID-19 Status: Acute Assessment and Plan: Patient tested positive for COVID. She was not tested on admission. Chest x-ray is clear. Continue supportive care. This has delayed her discharge. Patient needs reauthorization for placement. (2) Confusion: Code(s): R41.0 - Disorientation, unspecified Status: Acute Assessment and Plan: Patient with confusion and hallucinations the other night. Narcotics were stopped. Now AOx4. Follow (3) Syncopal episodes: Code(s): R55 - Syncope and collapse Status: Acute Assessment and Plan: Patient with syncopal episode in the shower. She probably has retrograde amnesia. Head CT showing chronic CVAs but no acute findings. Cervical spine CT showing no fracture but showing multiple nodules at the lung apices.CT chest showing granulomas. TSH and B12 normal here. Probably orthostatic HoTN causing the fall. Follow (4) Atrial fibrillation: Code(s): I48.91 - Unspecified atrial fibrillation Status: Acute Assessment and Plan: Patient has chronic AFib but with RVR. TSH normal. Metoprolol was restarted and advanced. Xarelto was held due to surgical intervention but now restarted. Diltiazem was added now held. Heart rate better controlled. (5) Ankle fracture, left: Code(s): S82.892A - Other fracture of left lower leg, initial encounter for closed fracture Status: Deleted Assessment and Plan: Patient with left ankle pain with xray showing displaced fractures of the medial malleolus and distal fibular shaft with possible subtle posterior malleolus fracture. Related to the syncopal episode and fall. POD #6 from an ORIF left lateral malleolus repair. Pain controlled. Appreciate orthopedic surgery consult. Continue PT/OT. SNF placement planned. Awaiting authorization again (6) Fall: Code(s): W19.XXXA - Unspecified fall, initial encounter Status: Acute Assessment and Plan: As above (7) Diastolic heart failure: Code(s): I50.30 - Unspecified diastolic (congestive) heart failure Status: Acute Assessment and Plan: Echo in November 2020 showing EF 60-65% with abnormal diastolic function and mild-mod MR and TR. Lasix given once 11/18. Clinically she is euvolemic. As above (8) Elevated troponin: Code(s): R77.8 - Other specified abnormalities of plasma proteins Status: Acute Assessment and Plan: Troponin mildly elevated at 0.045. Could be related to mildly elevated TCK and/or from the AFib/RVR. EKG does not show any signifincat ST-T wave changes. Echo as above. Repeat Trop normal (9) Elevated LFTs: Code(s): R79.89 - Other specified abnormal findings of blood chemistry Status: Acute Assessment and Plan: AST 115 and ALT 46. Probably elevated related to the elevated TCK at 1044. UA shows only trace blood so do not feel need to start IV fluids at this point. LFTs trending down. TCK now 163. Resolved. (10) Essential hypertension: Code(s): I10 - Essential (primary) hypertension Status: Acute Assessment and Plan: Patient's blood pressure was reviewed on 11/26 Blood pressure remains well controlled. Will continue current medications. (11) Diabetes mellitus type 2, controlled, with complications: Code(s): E11.8 - Type 2 diabetes mellitus with unspecified complications Status: Acute Assessment and Plan: A1c 6.6. The patient's blood glucose was reviewed on 11/26 Glucose better controlled. Continue AccuCheks covering with sliding scale. Hypoglycemia protocol is available as needed. Continue metformin (12) Bilateral carotid artery disease: Code(s): I73.9 - Peripheral vascular disease, unspecified Status: Acute Assessment and Plan: On Xarelto but does not appear to be on any anti-platelet agents. Ator
[2022-11-26] MEDS: RIVAROXABAN 20 MG TABLET PO (16:35)
[2022-11-26 17:08] LABS: Glucose Point of Care 180 mg/dl (65-105)
[2022-11-26 19:36] LABS: Glucose Point of Care 174 mg/dl (65-105)
[2022-11-26 20:37] VITALS: BP 115/63; PULSE 104; RESP 18; TEMP 36.6; O2SAT 95
[2022-11-26 21:50] VITALS: O2SAT 95
[2022-11-27 04:45] VITALS: BP 112/70; PULSE 91; RESP 18; TEMP 36.7; O2SAT 100
[2022-11-27] MEDS: LEVOTHYROXINE SODIUM 25 MCG TABLET PO (05:33)
--- NOTE | 2022-11-27 08:04 | P.PNIM_ITS ---
Progress Note: A&P Assessment and Plan (1) COVID: Code(s): U07.1 - COVID-19 Status: Acute Assessment and Plan: Patient tested positive for COVID. She was not tested on admission. Chest x- ray is clear. Continue supportive care. This has delayed her discharge. Patient needs reauthorization for placement. (2) Confusion: Code(s): R41.0 - Disorientation, unspecified Status: Acute Assessment and Plan: Patient with confusion and hallucinations the other night. Narcotics were stopped. Now AOx4. Follow (3) Syncopal episodes: Code(s): R55 - Syncope and collapse Status: Acute Assessment and Plan: Patient with syncopal episode in the shower. She probably has retrograde amnesia. Head CT showing chronic CVAs but no acute findings. Cervical spine CT showing no fracture but showing multiple nodules at the lung apices.CT chest showing granulomas. TSH and B12 normal here. Probably orthostatic HoTN causing the fall. Follow (4) Atrial fibrillation: Code(s): I48.91 - Unspecified atrial fibrillation Status: Acute Assessment and Plan: Patient has chronic AFib but with RVR. TSH normal. Metoprolol was restarted and advanced. Xarelto was held due to surgical intervention but now restarted. Diltiazem was added now held. Heart rate better controlled. (5) Ankle fracture, left: Code(s): S82.892A - Other fracture of left lower leg, initial encounter for closed fracture Status: Deleted Assessment and Plan: Patient with left ankle pain with xray showing displaced fractures of the medial malleolus and distal fibular shaft with possible subtle posterior malleolus fracture. Related to the syncopal episode and fall. POD #6 from an ORIF left lateral malleolus repair. Pain controlled. Appreciate orthopedic surgery consult. Continue PT/OT. SNF placement planned. Awaiting authorization again (6) Fall: Code(s): W19.XXXA - Unspecified fall, initial encounter Status: Acute Assessment and Plan: As above (7) Diastolic heart failure: Code(s): I50.30 - Unspecified diastolic (congestive) heart failure Status: Acute Assessment and Plan: Echo in November 2020 showing EF 60-65% with abnormal diastolic function and mild- mod MR and TR. Lasix given once 11/18. Clinically she is euvolemic. As above (8) Elevated troponin: Code(s): R77.8 - Other specified abnormalities of plasma proteins Status: Acute Assessment and Plan: Troponin mildly elevated at 0.045. Could be related to mildly elevated TCK and/or from the AFib/RVR. EKG does not show any signifincat ST-T wave changes. Echo as above. Repeat Trop normal (9) Elevated LFTs: Code(s): R79.89 - Other specified abnormal findings of blood chemistry Status: Acute Assessment and Plan: AST 115 and ALT 46. Probably elevated related to the elevated TCK at 1044. UA shows only trace blood so do not feel need to start IV fluids at this point. LFTs trending down. TCK now 163. Resolved. (10) Essential hypertension: Code(s): I10 - Essential (primary) hypertension Status: Acute Assessment and Plan: Patient's blood pressure was reviewed on 11/26 Blood pressure remains well controlled. Will continue current medications. (11) Diabetes mellitus type 2, controlled, with complications: Code(s): E11.8 - Type 2 diabetes mellitus with unspecified complications Status: Acute Assessment and Plan: A1c
[2022-11-27 08:43] LABS: Glucose Point of Care 115 mg/dl (65-105)
[2022-11-27 08:58] VITALS: BP 120/68; PULSE 104
[2022-11-27] MEDS: ASCORBIC ACID 500 MG TABLET PO (08:58)
[2022-11-27] MEDS: metFORMIN HCL 250 MG TABLET PO ×2 (08:58→17:30)
[2022-11-27] MEDS: ATORVASTATIN 20 MG TABLET PO (08:59)
[2022-11-27] MEDS: CYANOCOBALAMIN 1,000 MCG TABLET 5000 MCG PO (08:59)
[2022-11-27] MEDS: SENNA/DOCUSATE SODIUM TABLET 2 TAB PO ×2 (09:00→17:30)
[2022-11-27] MEDS: DULoxetine HCL 60 MG CAPSULE.DR PO (09:00)
[2022-11-27 09:01] VITALS: PULSE 104
[2022-11-27] MEDS: METOPROLOL SUCCINATE EXT REL 25 MG, METOPROLOL SUCCINATE EXT REL 50 MG 75 MG PO (09:01)
[2022-11-27] MEDS: FAMOTIDINE 20 MG TABLET PO (09:01)
[2022-11-27] MEDS: ZINC SULFATE 220 MG CAPSULE PO (09:02)
[2022-11-27 12:19] LABS: Glucose Point of Care 147 mg/dl (65-105)
[2022-11-27 15:45] VITALS: BP 117/76; PULSE 89; RESP 18; TEMP 36.5; O2SAT 98
[2022-11-27 17:29] LABS: Glucose Point of Care 111 mg/dl (65-105)
[2022-11-27] MEDS: RIVAROXABAN 20 MG TABLET PO (17:30)
== END 2022-11-27 19:07 | DRG 492 ==
LOC: ANHED 06:31 → ANHIMU 07:26 → ANH2MED 11-21 22:07
PROVIDERS: Orthopaedic Surgery; Student in an Organized Health Care Education/Training Program; Admitting Provider Internal Medicine; Emergency Provider Emergency Medicine; PCP Family Medicine; Visit Provider Internal Medicine
PROC: 0QSK04Z Reposition Left Fibula with Internal Fixation Device, Open Approach (ICD-10-PCS; principal; 2022-11-20 13:00)
DX: S82.842A Displaced bimalleolar fracture of left lower leg, initial encounter for closed fracture (principal); U07.1 COVID-19; I48.20 Chronic atrial fibrillation, unspecified; I50.30 Unspecified diastolic (congestive) heart failure; R41.0 Disorientation, unspecified; I11.0 Hypertensive heart disease with heart failure; E11.51 Type 2 diabetes mellitus with diabetic peripheral angiopathy without gangrene; E03.9 Hypothyroidism, unspecified; I25.10 Atherosclerotic heart disease of native coronary artery without angina pectoris; E11.42 Type 2 diabetes mellitus with diabetic polyneuropathy; F32.9 Major depressive disorder, single episode, unspecified; Z96.653 Presence of artificial knee joint, bilateral; Z88.0 Allergy status to penicillin; Z88.1 Allergy status to other antibiotic agents; Z79.01 Long term (current) use of anticoagulants; Z86.73 Personal history of transient ischemic attack (TIA), and cerebral infarction without residual deficits; W18.30XA Fall on same level, unspecified, initial encounter
CPT/HCPCS: 36415; 70450; 71045; 71250; 72125; 73610; 80053; 80061; 81001; 82550; 82607; 82746; 82948; 83036; 83735; 83880; 84443; 84484; 85025; 85610; 85730; 87426; 87637; 93005; 93306; 96365; 96367; 96375; 96376; 97110; 97116; 97161; 97165; 97530; 97535; 99199; 99285; A9270; C1713; C9803; J0690; J1100; J1650; J1815; J2001; J2405; J2704; J3010; J3475; J7030; J7120

== ENCOUNTER 2023-02-04 12:25 | Outpatient (CLI) | payer MEDICARE, SELFPAY ==
--- NOTE | ~2023-02-04 | MMUS_ITS ---
EXAMINATION: MM diagnostic elva BI w anand, US breast LT limited HISTORY: Six-month follow-up of stable probable benign 4 mm left 10:00 breast mass 5 cm from nipple, reported on 06/23/2022 breast sonographic imaging TECHNIQUE: Bilateral full-field embolism, MLO and CC and spot left CC 3-D tomosynthesis images were p erformed and synthetic 2-D images were generated. CAD analysis was submitted and interpreted. High re solution targeted 10:00 left breast ultrasound examination was performed. COMPARISON: 06/23/2022 diagnostic left mammogram and limited left breast ultrasound 11/17/2021 diagnostic left mammogram and left breast ultrasound examination 10/29/2021 bilateral screening mammogram BREAST PARENCHYMAL COMPOSITION: There are scattered areas of fibroglandular density. FINDINGS: MAMMOGRAPHIC FINDINGS: Scattered bilateral benign calcifications including multiple bilateral calcified microhematomas. No suspicious mass or architectural distortion, malignant calcification, skin thickening or retractio n or significant new or developing density is detected in either breast otherwise. ULTRASOUND: In the upper inner quadrant of the left breast at approximately 10-11 o'clock 4 cm from the nipple th ere is again noted an approximately 4 mm hypoechoic lesion with some shadowing, likely corresponding to a calcified microhematoma, stable since prior examinations IMPRESSION: 1. Benign findings 2. Routine annual mammographic screening is recommended BI-RADS Category 2: Benign finding(s). Reviewed, dictated and finalized at location [facility]. IMPRESSION: 1. Benign findings 2. Routine annual mammographic screening is recommended BI-RADS Category 2: Benign finding(s).
== END 2023-02-04 12:26 | disposition home or self-care (01) ==
LOC: ANHIMG 12:26
PROVIDERS: PCP Family Medicine; Visit Provider Obstetrics & Gynecology
DX: R92.8 Other abnormal and inconclusive findings on diagnostic imaging of breast (principal)
CPT/HCPCS: 76642; 77062; 77066; G0279

== ENCOUNTER 2023-04-21 14:15 | Outpatient (RCR) | payer MEDICARE, SELFPAY ==
--- NOTE | 2023-04-16 09:03 | OPREHPOC ---
Outpatient Therapy Plan of Care This is a Multidisciplinary Plan of Care that may contain components documented by all disciplines (PT, OT, and ST.) PT Problem 1 PT Problem #1 Knowledge Deficit PT Goal 1 Goal family independent with HEP Target Visit 8 PT Problem 2 PT Problem #2 Impaired Gait PT Goal 1 Goal Patient able to consistently walk 300' with least restrictive assistive device independently Target Visit 8 PT Problem 3 PT Problem #3 Impaired Strength PT Goal 1 Goal JONATHON LE grossly 5/5 Target Visit 8 PT Problem 4 PT Problem #4 Impaired Functional Mobil PT Goal 1 Goal Patient able to go up and down a flight of stairs standby assist Target Visit 6
--- NOTE | 2023-04-16 09:03 | PTOPEVAL1 ---
Assessment and note entered by Brad Peng, PT Evaluation Information Assessment Status Evaluation Diagnosis S/P ankle surgery for L displaced bimalleolar fx Onset 11/18/22 Subjective Information Patient injured herself by falling in her shower in November resulting in surgery stay in a SNF, and home health until 04/06/23. Patient and report she mainly gets around in the wheelchair, but they are hopeful to get her moving with a walker or hopefully cane. Also mentions they have a swim spa that they would like to incorporate into her HEP. Reported Pain Level Pain Score 0: Self Report Assessment PT Clinical Summary Trisha is a 78 year old female coming into the clinic with a diagnosis of L ankle fx with surgical correction. Patient has generalized weakness in her legs along with decreased endurance and balance resulting in minimal functional mobility. Physical therapy will work with patient to improve gait training, transfers, stair training. Potential to progress from walker to cane, but will be down the road. Plan of Care Interventions Gait Training,Hot Pack/Cold Pack,Manual Therapy, Neuro Re-education,Patient/Caregiver Education, Therapeutic Activities,Therapeutic Exercise, Ultrasound Other Interventions cuping, taping, IASTM PT Services Indicated Yes Treatment Frequency and 1-2x/wk for 8 visits Duration These treatments will address the objective and functional deficits as defined above. The patient will be advanced safely and appropriately in order for the patient to progress towards his/her prior level of function. Additional exercises will be introduced and as well as a comprehensive home exercise program upon discharge, if needed, ?to ensure carryover of functional gains achieved in the clinic. This treatment plan has been reviewed and agreement upon by the patient.
--- NOTE | 2023-04-23 10:36 | PTOPDC ---
Assessment and note entered by Juan A Nieto, PT Evaluation Information Assessment Status Discharge - Pt Not Present Diagnosis S/P ankle surgery for L displaced bimalleolar fx Onset 11/18/22 Subjective Information Patient injured herself by falling in her shower in November resulting in surgery stay in a SNF, and home health until 04/06/23. Patient and report she mainly gets around in the wheelchair, but they are hopeful to get her moving with a walker or hopefully cane. Also mentions they have a swim spa that they would like to incorporate into her HEP. Reported Pain Level Pain Score 0: Self Report Assessment PT Clinical Summary Patient called stating that she is having trouble getting ready and will not ever be able to make it to therapy on time. Requests discharge from therapy and plans to follow up with MD regarding other issues. Plan of Care PT Services Indicated Yes
--- NOTE | 2023-06-22 07:43 | PTOPDC ---
Assessment and note entered by Juan A Nieto, PT Discharge Information Assessment Status Discharge - Pt Not Present Diagnosis S/P ankle surgery for L displaced bimalleolar fx Onset 11/18/22 Subjective Information Patient injured herself by falling in her shower in November resulting in surgery stay in a SNF, and home health until 04/06/23. Patient and report she mainly gets around in the wheelchair, but they are hopeful to get her moving with a walker or hopefully cane. Also mentions they have a swim spa that they would like to incorporate into her HEP. Assessment PT Clinical Summary Patient called stating that she is having trouble getting ready and will not ever be derrick to make it to therapy on time. Requests discharge from therapy and plans to follow up with MD regarding other issues. Plan of Care PT Services Indicated Yes
== END 2023-06-22 14:04 | disposition home or self-care (01) ==
LOC: ANHPT 14:15
PROVIDERS: PCP Family Medicine; Visit Provider Orthopaedic Surgery
DX: S82.842A Displaced bimalleolar fracture of left lower leg, initial encounter for closed fracture (principal)
CPT/HCPCS: 97110; 97161; 99199

== ENCOUNTER 2023-10-02 02:37 | Emergency (ER) | payer MEDICARE, SELFPAY ==
[2023-10-02] VITALS (38 sets, daily range): BP systolic 134–180; BP diastolic 83–123; PULSE 90–112; RESP 14–44; TEMP 36.4; O2SAT 93–99
--- NOTE | ~2023-10-02 | CT_ITS ---
Noncontrast CT scan of the cervical spine Technique: Multiple contiguous axial [address] images of the cervical spine were obtained and rec onstructed in 2D sagittal and coronal planes on the acquisition scanner. Dose reduction technique was used on this scan by utilizing automated exposure control, adjustment of the mA and/or kV according to patient size. The dose-length product (DLP) was 219.19 mGy-cm. Clinical History: Pain Findings: No fracture identified. There is 3 mm anterolisthesis of C4 over C5. There is severe degene rative disc narrowing at C6-C7 and C7-T1. There is moderate degenerative disc narrowing at C4-C5 and C5-C6. There is extensive facet arthropathy throughout the cervical spine. Bilateral neural foraminal narrowing at C4-C5, and probably C5-C6 and C6-C7. No prevertebral soft tissue swelling. Impression: No fracture. 3 mm anterolisthesis of C4 over C5, likely chronic. Degenerative spondylosis, as above. Reviewed, dictated and finalized at [facility]. ING INFORMATICS ANALYST Impression: No fracture. 3 mm anterolisthesis of C4 over C5, likely chronic. Degenerative spondylosis, as above.
--- NOTE | ~2023-10-02 | CT_ITS ---
CT head without contrast Indication: Head and COMPARISON: 11/18/2022 Technique: Serial scans were obtained through the brain without the administration of contrast. Dose reduction technique was used on this scan by utilizing automated exposure control and iterative recon struction technique. The dose-length product (DLP) was 605.33 mGy-cm. Findings: There is no evidence of intracranial hemorrhage, mass lesion, or acute infarct. Stable bobbin doffer padmini right MCA distribution infarct. Stable focal chronic left cerebellar infarct. The ventricles and subarachnoid spaces are dilated, consistent with mild atrophy. Low attenuation regions are seen with in the periventricular white matter bilaterally, likely representing changes from chronic microvascul ar ischemic disease. There is no evidence of edema, mass effect or midline shift. The visualized pa ranasal sinuses and mastoid air cells are clear. Impression: No intracranial hemorrhage, mass, or acute infarct. Stable chronic right MCA distribution infarct. Stable focal chronic left cerebellar infarct. Atrophy and chronic white matter changes, as above. Reviewed, dictated and finalized at [facility]. TER GEOLOGICAL Impression: No intracranial hemorrhage, mass, or acute infarct. Stable chronic right MCA distribution infarct. Stable focal chronic left cerebellar infarct. Atrophy and chronic white matter changes, as above.
--- NOTE | ~2023-10-02 | XR_ITS ---
Portable chest x-ray Comparison: 11/25/2022 Clinical History: Weakness Findings: Lungs are clear, without focal consolidation or pleural effusion. Cardiomediastinal silho uette is stable, with prominent mitral annular calcification. Bones and soft tissues are unremarkable . Impression: Clear lungs. Reviewed, dictated and finalized at [facility]. LLITE DISH REPAIRER Impression: Clear lungs.
--- NOTE | 2023-10-02 02:48 | ECG_ITS ---
Measurements Intervals [place] Rate: 95 P: [place]: 0 QRS: 37 QRSD: 96 T: 57 QT: 377 QTc: 476 Interpretive Statements ATRIAL FIBRILLATION BORDERLINE ST-T WAVE ABNORMALITY- ANTEROLAT/HIGH LAT LEADS ABNORMAL ECG COMPARED TO ECG 11/21/2022 09:56:21 ST (T WAVE) DEVIATION NOW PRESENT Electronically Signed On 10-02-2023 6:16:56 SALVAGE ENGINEER by Mejia Castro D.O.
[2023-10-02 04:10] LABS: Basophils Percent Auto 0.4 % (0.2-1.2); Eosinophils Absolute Auto 0.3 K/mm3 (0-0.3); Eosinophils Percent Auto 2.9 % (0-4.4); Hematocrit 39.9 % (37.0-47.0); Hemoglobin 13.2 g/dL (12.0-15.0); Immature Granulocyte Absolute 0.05 K/mm3 (0.00-0.031); Immature Granulocyte Percent A 0.6 % (0-0.5); Lymphocytes Absolute Auto 1.32 K/mm3 (0.9-3.2); Lymphocytes Percent Auto 14.8 % (18.3-44.2); Mean Corpuscular HGB Conc 33.1 g/dl (32-36); Mean Corpuscular Hemoglobin 34.3 pg (26-34); Mean Corpuscular Volume 103.6 fl (80-100); Mean Platelet Volume 9.4 fl (7.4-10.4); Monocytes Absolute Auto 1.1 K/mm3 (0.1-0.6); Monocytes Percent Auto 12.5 % (2.6-8.5); Neutrophils Absolute Auto 6.1 K/mm3 (1.3-6.7); Neutrophils Percent Auto 68.8 % (45.5-73.1); Platelet Count Result 263 k/mm3 (150-375); Red Blood Count 3.85 M/mm3 (4.2-5.4); Red Cell Distribution Width 12.1 % (11.5-14.5); White Blood Count 8.9 K/mm3 (4.5-10.0)
[2023-10-02 04:20] LABS: Lactic Acid Reflex 1.7 mmol/L (0.7-2.0); Magnesium 1.6 mg/dL (1.6-2.3)
[2023-10-02 04:22] LABS: Alanine Aminotransferase 21 U/L (6-35); Albumin Level 3.5 g/dL (3.5-5.1); Alkaline Phosphatase 133 U/L (38-126); Anion Gap 7 mmol/L (8-16); Aspartate Amino Transferase 26 U/L (14-36); Bilirubin,Total 0.8 mg/dL (0.2-1.3); Blood Urea Nitrogen 19 mg/dL (7-17); Calcium 8.9 mg/dL (8.4-10.2); Carbon Dioxide 29 mmol/L (22-30); Chloride 102 mmol/L (98-107); Estimated CRCL calculation 42 ml/min; Estimated Glomerular Filt Rate 60; Glucose 137 mg/dL (65-110); INR 1.2; Lipase 80 U/L (23-300); Potassium 3.4 mmol/L (3.4-5.0); Prothrombin Time 15.7 Seconds (11.1-14.7); Sodium 138 mmol/L (137-145)
[2023-10-02 04:23] LABS: Partial Thromboplastin Time 31.7 SECONDS (22.3-36.8)
[2023-10-02 04:33] LABS: NT Pro B Type Natriuretic Pept 981 pg/mL (19.9-100); Troponin I < 0.012 ng/mL (0.000-0.034)
--- NOTE | 2023-10-02 05:47 | ED.GENADULT ---
HPI - General Adult General Chief complaint: Unspecified Stated complaint: numbness Time Seen by Provider: 10/02/23 02:52 History of Present Illness HPI narrative: Patient is a 58-year-old female who presents to emergency department with chief complaint of palpitations and numbness in hands and feet. Patient reports that this evening she had an episode where her heart started beating fast and felt tingling on her hands and feet. Patient states that she was little weaker than normal reports that normally she can only ambulate approximately 5-6 feet and tonight felt as though she really could not ambulate well the patient was able to pivot for EMS the patient took a nitroglycerin prior to arrival and reports that upon arrival to the emergency department she is feeling much better. Patient incidentally reports that she fell several days ago and has been little weaker than normal and is on blood thinners. The patient has had prior stroke Related Data Home Medications Medication Instructions Recorded Confirmed ascorbic acid (vitamin C) 500 mg 500 mg PO DAILY 11/18/22 09/18/23 tablet (Vitamin C) cyanocobalamin (vitamin B-12) 5,000 mcg PO DAILY 11/18/22 09/18/23 5,000 mcg disintegrating tablet duloxetine 60 mg capsule,delayed 60 mg PO DAILY 11/18/22 09/18/23 release zinc gluconate 50 mg tablet 50 mg PO DAILY 11/18/22 09/18/23 prednisolone acetate 1 % eye 1 drp LEFT EYE .4 times daily 03/04/23 09/18/23 drops,suspension ofloxacin 0.3 % eye drops See Rx Instructions EACH EYE 07/23/23 09/18/23 .COMPLEX Allergies Allergy/AdvReac Type Severity Reaction Status Date / Time amoxicillin Allergy Intermediate Rash Verified 10/02/23 02:44 clavulanic acid Allergy Intermediate Rash Verified 10/02/23 02:44 erythromycin base Allergy Unknown Unknown Verified 10/02/23 02:44 meperidine Allergy Unknown Unknown Verified 10/02/23 02:44 Penicillins Allergy Unknown Unknown Verified 10/02/23 02:44 Review of Systems Review of Systems: A 10 system review of systems was completed on the patient and is negative except for what is stated in the HPI. Nursing and ancillary documentation was reviewed. 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, controlled, with complications Dry eyes due to decreased tear production Essential hypertension Excoriation (skin-picking) disorder Gastroesophageal reflux Heart disease Hypothyroidism, unspecified Left leg pain Localized edema Lung nodule Lymphedema Mixed hyperlipidemia Obesity (BMI 30-39.9) Other and unspecified hyperlipidemia Other hyperlipidemia Peripheral neuropathy Peripheral neuropathy, idiopathic PVD (peripheral vascular disease) Shortness of breath Stroke Tenesmus (rectal) Vitamin D deficiency Surgical History Surgical History Bimalleolar fracture of left ankle ORIF left ankle on 11/20/2022 H/O: hysterectomy History of adenoidectomy History of back surgery History of bilateral knee replacement (~2002) jb 2002 History of hand surgery Family History Family History Mother Diabetes mellitus Cerebrovascular accident Family history of dementia, Onset Age: 80 Father Family history of congestive heart failure, Onset Age: 76 Other Family history of arthritis Family history of coronary artery disease Family history of gout Family history of kidney stones Family history of mental disorder Hypertension Social History Social History (Reviewed 10/02/23 @ 05:50 by Tawanda Sanches
--- NOTE | 2023-10-02 05:50 | ECG_ITS ---
Measurements Intervals [place] Rate: 91 P: [place]: 0 QRS: 44 QRSD: 87 T: 62 QT: 362 QTc: 445 Interpretive Statements ATRIAL FIBRILLATION BORDERLINE ST-T WAVE ABNORMALITY- ANTEROLAT/HIGH LAT LEADS ABNORMAL ECG COMPARED TO ECG 10/02/2023 02:52:08 NO SIGNIFICANT CHANGES Electronically Signed On 10-02-2023 6:18:15 GUEST SERVICES MANAGER by Mejia Castro D.O.
[2023-10-02 06:28] LABS: Troponin I < 0.012 ng/mL (0.000-0.034)
[2023-10-02 06:31] LABS: Appearance Urine Clear (Clear); Bacteria Urine None Seen /hpf; Bilirubin Urine Negative (Negative); Blood Urine Negative (Negative); Calcium Oxalate Crystals Urine Present /hpf; Color Urine Yellow (Yellow); Glucose Urine UA Negative (Negative); Ketones Urine Negative (Negative); Leukocyte Esterase Ur 2+ LEU/UL (Negative); Need Manual Microscopic Reviewed; Nitrate Urine Negative (Negative); Non Pathogenic Casts 0-2; Protein Urine Negative (Negative); RBC Urine 0-2 /hpf (0-2); Squamous Epithelial Cell Urine Moderate /hpf (Few)
[2023-10-02 06:32] LABS: Add Urine Microscopic? YES
--- NOTE | 2023-10-02 06:52 | PC.NURSE ---
THIS RN SPOKE WITH ANNE, PER PT REQUEST TO PICK PT UP UPON DISCHARGE.
== END 2023-10-02 07:01 | disposition home or self-care (01) ==
PROVIDERS: Emergency Provider Emergency Medicine; PCP Family Medicine
DX: I48.91 Unspecified atrial fibrillation (principal); N39.0 Urinary tract infection, site not specified; R53.1 Weakness; I25.10 Atherosclerotic heart disease of native coronary artery without angina pectoris; I65.23 Occlusion and stenosis of bilateral carotid arteries; I10 Essential (primary) hypertension; E11.42 Type 2 diabetes mellitus with diabetic polyneuropathy; E03.9 Hypothyroidism, unspecified; E78.2 Mixed hyperlipidemia; E66.9 Obesity, unspecified; Z68.27 Body mass index [BMI] 27.0-27.9, adult; E55.9 Vitamin D deficiency, unspecified; K21.9 Gastro-esophageal reflux disease without esophagitis; Z86.73 Personal history of transient ischemic attack (TIA), and cerebral infarction without residual deficits; Z96.653 Presence of artificial knee joint, bilateral; Z90.710 Acquired absence of both cervix and uterus; Z79.01 Long term (current) use of anticoagulants; R94.31 Abnormal electrocardiogram [ECG] [EKG]; M47.812 Spondylosis without myelopathy or radiculopathy, cervical region
CPT/HCPCS: 36415; 70450; 71045; 72125; 80053; 81001; 83605; 83690; 83735; 83880; 84484; 85025; 85610; 85730; 87086; 93005; 99284

== ENCOUNTER 2024-05-22 08:32 | Observation (INO) | payer MEDICARE, SELFPAY ==
[2024-05-22] VITALS (13 sets, daily range): BP systolic 127–175; BP diastolic 72–101; PULSE 62–123; RESP 16–29; TEMP 36.1–37.1; O2SAT 93–99; BMI 24.5
--- NOTE | ~2024-05-22 | XR_ITS ---
EXAMINATION: XR chest 2V DATE: 05/22/2024 09:17 INDICATION: Shortness of breath and chest pain TECHNIQUE: frontal and lateral views of the chest were obtained. COMPARISON: Chest radiograph dated 10/02/2023 FINDINGS: Unchanged mild elevation the left hemidiaphragm. Small calcified nodule at the left costophrenic angl e. No other airspace opacities, pulmonary edema, pleural effusion or pneumothorax. Heart size is norm al. Dense mitral annular calcifications. IMPRESSION: 1. No acute cardiopulmonary disease. Reviewed, dictated and finalized at location A.
--- NOTE | ~2024-05-22 | CT_ITS ---
CTA chest PE protocol Ordering provider: Brenda Webster History: 79 years Female with . Exertional dyspnea . Comparison: November 19, 2022 Technique: CT angiogram chest was performed following timed intravenous injection of contrast. Thin s lice axial images and reformatted coronal images were obtained. Three dimensional reformatted images of the chest were also obtained using a [employer] workstation. . Automated exposure control and iterati ve reconstruction technique were employed. The dose-length product was 344.30 mGy-cm. 100 mL Omnipaqu e 350 was given IV. Findings: PULMONARY ARTERIES: No pulmonary embolus. VISUALIZED THORACIC INLET: Normal. MEDIASTINUM: Aorta/coronary arteries: Mild atheromatous disease. Heart/other: The heart is not enlarged. Lymph nodes: No mediastinal or hilar adenopathy. LUNGS: Bilateral tree-in-bud appearance in the upper lobes. Suggestive of infection atelectasis. Nodule is s een in the right upper lobe measuring 4 mm. nodule in the left upper lobe is also noted measuring 7 m m. 6-12 months follow-up advised. Nodule in the left lower lobe medially is noted measuring 8 mm. Rig ht paratracheal opacity which may be a nodule or atelectasis is seen in the right apical area. Follow -up advised. No pulmonary masses. No effusions. No pneumothorax. VISUALIZED UPPER ABDOMEN: Distended gallbladder. Slightly prominent adrenal glands. Otherwise, the vi sualized upper abdomen is normal. MUSCULOSKELETAL: Soft tissues: The superficial soft tissues are normal. Bones: Age appropriate degenerative changes of the spine. Indeterminate age compression fracture of T 9 and L1. IMPRESSION: 1. No pulmonary embolism. 2. Multiple nodules. Small months follow-up CT is advised. 3. Tree-in-bud appearance in the upper lobes which is suggestive of pneumonitis. Follow-up advised. 4. Indeterminate age compression fracture of T9 and L1. Reviewed, dictated and finalized at location A. IMPRESSION: 1. No pulmonary embolism. 2. Multiple nodules. Small months follow-up CT is advised. 3. Tree-in-bud appearance in the upper lobes which is suggestive of pneumoniti s. Follow-up advised. 4. Indeterminate age compression fracture of T9 and L1.
--- NOTE | 2024-05-22 08:53 | ECG_ITS ---
Test Date: 2024-05-22 08:59:19 Measurements Intervals [place] Rate: 120 P: 0 TN: 0 QRS: 26 QRSD: 86 T: 90 QT: 300 QTc: 425 Interpretive Statements ATRIAL FIBRILLATION WITH RAPID VENTRICULAR RESPONSE MODERATE ST DEPRESSION IN LATERAL LEADS BASELINE ARTIFACT- I, II, III, AVR, AVL, AVF, V1-V6 ABNORMAL ECG No previous ECG available for comparison Electronically Signed On 05-22-2024 15:17:49 CDT by Mejia Castro D.O.
[2024-05-22] MEDS: METOPROLOL SUCCINATE EXT REL 50 MG TABCR PO (10:19)
[2024-05-22] MEDS: dilTIAZem HCl INJ 25 MG/5 ML VIAL 10 MG IV PUSH (10:20)
--- NOTE | 2024-05-22 10:33 | ED.SOB ---
HPI - SOB/Dyspnea General Chief Complaint: Shortness of Breath/Dyspnea Stated Complaint: breathing difficulties Time Seen by Provider: 05/22/24 09:11 History of Present Illness HPI Narrative: Patient is an 79-year-old female who presents to the ER with reports of heart palpitations and shortness of breath. Patient has history of atrial fibrillation. She has been compliant with home medication. She sees Dr. Castro. No fevers or chills or sweats. No chest pain. No productive cough. She does take Xarelto 20 mg daily. Related Data Home Medications Medication Instructions Recorded Confirmed ascorbic acid (vitamin C) 500 mg 500 mg PO DAILY 11/18/22 04/22/24 tablet (Vitamin C) cyanocobalamin (vitamin B-12) 5,000 mcg PO DAILY 11/18/22 04/22/24 5,000 mcg disintegrating tablet zinc gluconate 50 mg tablet 50 mg PO DAILY 11/18/22 04/22/24 brimonidine 0.2 % eye drops 1 drp EACH EYE Q8H 02/09/24 04/22/24 dorzolamide 2 % eye drops 1 drp EACH EYE TID 02/09/24 04/22/24 Allergies Allergy/AdvReac Type Severity Reaction Status Date / Time amoxicillin Allergy Intermediate Rash Verified 04/22/24 14:28 clavulanic acid Allergy Intermediate Rash Verified 04/22/24 14:28 erythromycin base Allergy Unknown Unknown Verified 04/22/24 14:28 meperidine Allergy Unknown Unknown Verified 04/22/24 14:28 Penicillins Allergy Unknown Unknown Verified 04/22/24 14:28 Review of Systems Review of Systems: All systems reviewed & are unremarkable except as noted in HPI and below Constitutional: Constitutional: Reports no additional constitutional complaints ENT: Reports system reviewed and no additional complaints, except as documented Cardiovascular: Cardiovascular: Denies chest pain, Reports rapid heart rate and Denies radiating jaw, neck or arm pain Respiratory: Respiratory: Denies chest congestion, Denies cough, Reports dyspnea and Denies wheezing Gastrointestinal: Gastrointestinal: Reports no additional gastrointestinal complaints Genitourinary: Genitourinary: Reports no additional female genitourinary complaints [facility] Past Medical History Medical History (Updated 05/22/24 @ 17:40 by Matt Reaves MD) Arthralgia of hands, bilateral Atrial fibrillation with RVR Atrophic vaginitis Bilateral carotid artery stenosis Chronic left shoulder pain Cubital tunnel syndrome on left Depression 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besity (BMI 30-39.9) Other hyperlipidemia Peripheral neuropathy PVD (peripheral vascular disease) Stroke Tenesmus (rectal) Vitamin D deficiency Surgical History Surgical History Bimalleolar fracture of left ankle ORIF left ankle on 11/20/2022 H/O: hysterectomy History of adenoidectomy History of back surgery History of bilateral knee replacement (~2002) jb 2002 History of hand surgery Family History Family History Mother Diabetes mellitus Cerebrovascular accident Family history of dementia, Onset Age: 80 Father Family history of congestive heart failure, Onset Age: 76 Other Family history of arthritis Family history of coronary artery disease Family history of gout Family history of kidney stones Family history of mental disorder Hypertension Social History Social History Smoking status: Never smoker Second hand tobacco smoke exposure: No Alcohol intake: never Substance use: never Substance use type: does not use Do You Feel Safe in your Home?: Yes Lack of Transportation: No Lack of Food: Never True Current Housing:
[2024-05-22 10:40] LABS: Basophils Percent Auto 0.3 % (0.2-1.2); Eosinophils Absolute Auto 0.1 K/mm3 (0-0.3); Eosinophils Percent Auto 1.1 % (0-4.4); Hematocrit 45.4 % (37.0-47.0); Hemoglobin 15.4 g/dL (12.0-15.0); Immature Granulocyte Absolute 0.04 K/mm3 (0.00-0.031); Immature Granulocyte Percent A 0.4 % (0-0.5); Lymphocytes Absolute Auto 1.35 K/mm3 (0.9-3.2); Lymphocytes Percent Auto 12.2 % (18.3-44.2); Mean Corpuscular HGB Conc 33.9 g/dl (32-36); Mean Corpuscular Hemoglobin 34.5 pg (26-34); Mean Corpuscular Volume 101.6 fl (80-100); Mean Platelet Volume 9.6 fl (7.4-10.4); Monocytes Absolute Auto 1.4 K/mm3 (0.1-0.6); Monocytes Percent Auto 12.3 % (2.6-8.5); Neutrophils Absolute Auto 8.2 K/mm3 (1.3-6.7); Neutrophils Percent Auto 73.7 % (45.5-73.1); Platelet Count Result 266 k/mm3 (150-375); Red Blood Count 4.47 M/mm3 (4.2-5.4); Red Cell Distribution Width 11.9 % (11.5-14.5); White Blood Count 11.1 K/mm3 (4.5-10.0)
[2024-05-22 10:53] LABS: Alanine Aminotransferase 29 U/L (6-35); Alkaline Phosphatase 114 U/L (38-126); Anion Gap 10 mmol/L (4-12); Aspartate Amino Transferase 48 U/L (14-36); Bilirubin,Total 1.7 mg/dL (0.2-1.3); Blood Urea Nitrogen 16 mg/dL (7-17); Calcium 9.5 mg/dL (8.4-10.2); Carbon Dioxide 29 mmol/L (22-30); Chloride 96 mmol/L (98-107); Estimated CRCL calculation 42 ml/min; Estimated Glomerular Filt Rate > 60; Glucose 136 mg/dL (65-110); Magnesium 1.2 mg/dL (1.6-2.3); Potassium 4.2 mmol/L (3.4-5.0); Sodium 135 mmol/L (137-145)
[2024-05-22 11:56] LABS: NT Pro B Type Natriuretic Pept 767 pg/mL (19.9-100)
--- NOTE | 2024-05-22 15:20 | PM.IMHP ---
H&P: HPI History of Present Illness Date/Time: 05/22/24 15:20 Chief Complaint: Shortness of Breath Narrative: 79 y/o F presents here with shortness of breath with PMH of atrial fibrillation, bilateral carotid artery stenosis, depression, dm 2, HTN, GERD, hypothyroidism, lymphedema, HLD, PVD, stroke, and heart disease. The patient presents here from home for further evaluation of shortness of breath. She reports onset for the past 6 months. Patient has been less mobile over the last few months due to an ankle fracture. She reports the shortness of breath worsens with laying flat and exertion. Shortness of breath improves when she sits back up. She reports accompanying intermittent chest tightness, intermittent palpitations, and mild diaphoresis. Denies chest pain, dizziness, nausea, vomiting, diarrhea, cough, or fever. Patient has history of atrial fibrillation and is on Metoprolol and Xarelto. Patient follows with coil rewind machine operator, Matthew JI with [facility]. Patient reports poor PO intake. Initial VS at presentation: 97.2? F, HR 62, RR 16, 19631, and 96% on RA. ED workup showed: WBC 11.1, hemoglobin 15.4, creatinine 0.8 and GFR >60, magnesium 1.2, BNP 767. CXR showed no acute cardiopulmonary process. Initial EKG showed atrial fibrillation with RVR, rate 120, moderate ST depression in inferior leads, and baseline artifact. 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besity (BMI 30-39.9) Other hyperlipidemia Peripheral neuropathy PVD (peripheral vascular disease) Stroke Tenesmus (rectal) Vitamin D deficiency Surgical History Surgical History Bimalleolar fracture of left ankle ORIF left ankle on 11/20/2022 H/O: hysterectomy History of adenoidectomy History of back surgery History of bilateral knee replacement (~2002) jb 2002 History of hand surgery Family History Family History Mother Diabetes mellitus Cerebrovascular accident Family history of dementia, Onset Age: 80 Father Family history of congestive heart failure, Onset Age: 76 Other Family history of arthritis Family history of coronary artery disease Family history of gout Family history of kidney stones Family history of mental disorder Hypertension Social History Social History Smoking status: Never smoker Second hand tobacco smoke exposure: No Alcohol intake: never Substance use: never Substance use type: does not use Do You Feel Safe in your Home?: Yes Lack of Transportation: No Lack of Food: Never True Current Housing: I Have Housing Concerned About Future Housing: No Difficulty Paying Gas/Electric Bills: No Difficulty Paying for Meds: No Currently Unemployed: No Education: Master's Degree or Higher Difficulty w/ Childcare or Family Care: No Living arrangements: with family Occupation/Education: retired Gender identity (if verbalized by the patient): Female Sexual Orientation (if Verbalized by the Patient): Straight or Heterosexual Spiritual care concerns: No Agree to blood products: Yes Meds Home Medications and Allergies Home Medications M
[2024-05-22 16:18] LABS: Troponin I < 0.012 ng/mL (0.000-0.034)
--- NOTE | 2024-05-22 16:27 | PM.CNCAR ---
Assessment and Plan Assessment and plan (1) Atrial fibrillation: Code(s): I48.91 - Unspecified atrial fibrillation Status: Acute Assessment and Plan: Was rapid probably due to volume depletion. Got Diltiazem 10 mg IVx1 in ED and her usual Metoprolol 50 mg dose and HR minimally fast. On Xarelto. Mag 1.2. IVF 1 liter and replete Mag. Resume Metoprolol Succinate 50 mg in AM. Monitor HR. (2) Essential hypertension: Code(s): I10 - Essential (primary) hypertension Status: Acute Assessment and Plan: Stable. (3) Dyslipidemia: Code(s): E78.5 - Hyperlipidemia, unspecified Status: Acute Assessment and Plan: On Atorvastatin. (4) Shortness of breath: Code(s): R06.02 - Shortness of breath Status: Acute Assessment and Plan: Probably due to rapid atrial fibrillation. EKG no ST changes. Troponin OK. NTproBNP better at 767. Obtain echo. History of Present Illness History of Present Illness Consult date/time: 05/22/24 16:27 Reason For Visit: Afib RVR Narrative: Patient is a 79 yr old woman who is my regular cardiology patient presents to ER for sob. She has a history of carotid disease S/P Right CEA and being followed by [facility] Vascular surgery, dyslipidemia, atrial fibrillation diagnosed on 06/28/19, covid infection on 11/24/22. States she felt sob and palpitations today and came to ER. Her HR was fast in atrial fibrillation at 120 bpm. States she does not drink much water, perhaps one 16 ounce bottle a day. Denies chest pain, orthopnea, PND. 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 She was hospitalized after having orthostatic syncope and fractured ankle on 11/18/22. She reports getting more LARSON and stumbling with walking only 10 feet . She does not drink much water but drinks diet dr pepper. Cardiovascular Procedures Echo/MUGA:: 11/19/22 Echo: EF 60-65%, diastolic dysfunction (E/e' 10), mild biatrial enlargement, severe MAC, mild-mod MR/TR. 11/06/20 Echo: EF 60-65%, diastolic dysfunction (E/e' 15), severe LAE, mod MAC, mild-mod MR/TR. 07/13/19 Echo EF 45-50%, mild LVH, diastolic dysfunction (E/e' 13), mod LAE, severe MAC, mild-mod MR, mod TR. Electrophysiology:: 10/02/23 EKG: Atrial fibrillation at 91 bpm, borderline ST-T wave. 11/21/22 EKG: Atrial fibrillation at 84 bpm, PVC. 06/28/19 EKG: Atrial fibrillation at 148 bpm, nonspecific ST-T wave in lateral leads. Stress Tests:: 07/18/19 Lexiscan myoview: Negative for ischemia. 04/25/22 PUNEET right 1.04, TBI mildly abnormal at 0.56, left PUNEET 1.11. 08/03/17 Carotid CTA: occluded right CCA; 50% left carotid bulb/ICA stenosis. 2006 Vascular srugery: Right CEA. Review of Systems Review of Systems: All systems reviewed & are unremarkable except as noted in HPI and below Constitutional: Constitutional: Reports as per HPI, Denies chills and Denies fever(s) Cardiovascular: Cardiovascular: Reports as per HPI and Denies chest pain Respiratory: Respiratory: Reports as per HPI and Reports dyspnea Gastrointestinal: Gastrointestinal: Reports as per HPI and Denies abdominal pain Genitourinary: Genitourinary: Reports as per HPI and Denies dysuria Musculoskeletal: Musculoskeletal: Reports as per HPI and Reports arthralgias Neurologic: Reports as per HPI, Denies dizziness and Denies syncope [facility] Past Medical History Medical History (Updated 05/22/24 @ 16:25 by Brenda Webster, EMERGENCY VEHICLE OPERATIONS INSTRUCTOR) Arthralgia of hands, bilateral Atrial fibrillation with RVR Atrophic vaginitis Bilateral carotid artery stenosis Chronic left shoulder pain Cubital tunnel syndrome on left Depression 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
[2024-05-22] MEDS: MAGNESIUM SULF 2 GM/WATER 50ML 2 GM/50 ML BAG IVPB (18:21)
[2024-05-22] MEDS: LACTATED RINGERS 1,000 ML 100 ML IV CONT (18:21)
[2024-05-22 18:43] LABS: Troponin I < 0.012 ng/mL (0.000-0.034)
[2024-05-22 19:53] LABS: D Dimer 0.79 ug/mL (<0.48)
[2024-05-22] MEDS: RIVAROXABAN 20 MG TABLET PO (20:44)
[2024-05-22 22:25] LABS: Troponin I < 0.012 ng/mL (0.000-0.034)
[2024-05-22] MEDS: METOPROLOL TARTRATE INJ 5 MG/5 ML VIAL IV PUSH (22:53)
[2024-05-23] VITALS (19 sets, daily range): BP systolic 110–165; BP diastolic 60–98; PULSE 64–108; RESP 14–20; TEMP 36.1–37.1; O2SAT 93–97
--- NOTE | 2024-05-23 | ECHO_ITS ---
Patient Info Name: Trisha Sparrow Age: 79 years : 1945 Gender: Female Ht: 64 in Wt: 158 lbs BSA: 1.82 m2 HR: 101 bpm BP: 165 / 60 mmHg Heart Rhythm: Atrial Fibrillation Technical Quality: Good Exam Date: 05/23/2024 10:30 AM Exam Location: Echo Lab Patient Status: Outpatient Admit Date: 05/22/2024 Staff Ordering Physician: Mejia Castro DO Playground Attendant: Bladimir Ortiz RDCS Attending Provider: Jb Kwong MD Referring Physician: Matthew RAMIREZ; Exam Type: CA echo doppler color flow Study Info Indications - sob, a fib Complete two-dimensional, color flow and Doppler transthoracic echocardiogram is performed. Summary 1. Complete two-dimensional, color flow and Doppler transthoracic echocardiogram is performed. 2. Left ventricular chamber dimension is normal. 3. Left ventricular systolic function is normal, estimated at 65-70%. 4. There is moderate concentric increased left ventricular wall thickness. 5. The left ventricular diastolic function is abnormal. 6. E/e' 24 is elevated. 7. Atrial fibrillation. 8. Left atrial chamber dimension is moderately enlarged. 9. Right atrial chamber dimension is mildly enlarged. 10. There is mild aortic valve sclerosis. 11. The mitral valve has moderately calcified annulus. 12. There is mild to moderate mitral valve regurgitation. 13. There is moderate tricuspid valve regurgitation. 14. No pulmonary hypertension, estimated pulmonary arterial systolic pressure is 39 mmHg. Left Ventricle E/e' 24 is elevated. Atrial fibrillation. Left ventricular chamber dimension is normal. Left ventricular systolic function is normal, estimated at 65-70%. There is moderate concentric increased left ventricular wall thickness. The left ventricular diastolic function is abnormal. Right Ventricle Right ventricular chamber dimension is normal. Right ventricular systolic function is normal. Left Atria Left atrial chamber dimension is moderately enlarged. Right Atria Right atrial chamber dimension is mildly enlarged. Aortic Valve The aortic valve is trileaflet. There is mild aortic valve sclerosis. There is no aortic valve stenosis. There is no aortic valve regurgitation. Pulmonic Valve There is no pulmonic regurgitation. Mitral Valve The mitral valve has moderately calcified annulus. There is no mitral valve stenosis. There is mild to moderate mitral valve regurgitation. Tricuspid Valve There is moderate tricuspid valve regurgitation. No pulmonary hypertension, estimated pulmonary arterial systolic pressure is 39 mmHg. Pericardium/Pleural There is no pericardial effusion. Inferior Vena Cava Normal inferior vena cava with >50% collapse upon inspiration consistent with normal right atrial pressure, 5 mmHg. Aorta The aortic root size at the sinus of Valsalva is normal. Left Ventricular Outflow Tract Name Value Normal LVOT 2D LVOT Diameter 1.7 cm LVOT Doppler LVOT Peak Gradient 1 mmHg LVOT Mean Gradient 1 mmHg LVOT VTI 11 cm LVOT VTI/AV VTI Ratio 0.7 LVOT Stroke Volume 25 ml LVOT CO
[2024-05-23] MEDS: ACETAMINOPHEN 325 MG TABLET 650 MG PO (03:23)
[2024-05-23 05:12] LABS: Basophils Percent Auto 0.4 % (0.2-1.2); Eosinophils Absolute Auto 0.1 K/mm3 (0-0.3); Eosinophils Percent Auto 1.2 % (0-4.4); Hematocrit 48.2 % (37.0-47.0); Hemoglobin 15.9 g/dL (12.0-15.0); Immature Granulocyte Absolute 0.04 K/mm3 (0.00-0.031); Immature Granulocyte Percent A 0.4 % (0-0.5); Lymphocytes Absolute Auto 1.31 K/mm3 (0.9-3.2); Lymphocytes Percent Auto 14.1 % (18.3-44.2); Mean Corpuscular Hemoglobin 34.3 pg (26-34); Mean Corpuscular Volume 103.9 fl (80-100); Mean Platelet Volume 9.7 fl (7.4-10.4); Monocytes Absolute Auto 1.2 K/mm3 (0.1-0.6); Monocytes Percent Auto 13.3 % (2.6-8.5); Neutrophils Absolute Auto 6.5 K/mm3 (1.3-6.7); Neutrophils Percent Auto 70.6 % (45.5-73.1); Platelet Count Result 261 k/mm3 (150-375); Red Blood Count 4.64 M/mm3 (4.2-5.4); Red Cell Distribution Width 12.1 % (11.5-14.5); White Blood Count 9.3 K/mm3 (4.5-10.0)
[2024-05-23 05:44] LABS: Alanine Aminotransferase 34 U/L (6-35); Alkaline Phosphatase 130 U/L (38-126); Anion Gap 11 mmol/L (4-12); Aspartate Amino Transferase 42 U/L (14-36); Bilirubin,Total 1.4 mg/dL (0.2-1.3); Blood Urea Nitrogen 11 mg/dL (7-17); Calcium 9.1 mg/dL (8.4-10.2); Carbon Dioxide 26 mmol/L (22-30); Chloride 97 mmol/L (98-107); Estimated CRCL calculation 55 ml/min; Estimated Glomerular Filt Rate > 60; Glucose 141 mg/dL (65-110); Potassium 4.6 mmol/L (3.4-5.0); Sodium 134 mmol/L (137-145)
[2024-05-23] MEDS: LEVOTHYROXINE SODIUM 25 MCG TABLET PO (06:02)
[2024-05-23 07:06] LABS: Glucose Point of Care 139 mg/dl (65-105)
--- NOTE | 2024-05-23 07:49 | PM.PNCARD ---
Progress Note: A&P Assessment and Plan (1) Atrial fibrillation: Code(s): I48.91 - Unspecified atrial fibrillation Status: Acute Assessment and Plan: Rapid due to volume depletion or pneumonitis. Got Diltiazem 10 mg IVx1 in ED and her usual Metoprolol 50 mg dose and HR minimally fast. On Xarelto. Mag 1.2. Increase Metoprolol Succinate 100 mg daily. Monitor HR. Check Mag in AM. (2) Essential hypertension: Code(s): I10 - Essential (primary) hypertension Status: Acute Assessment and Plan: High. Start Losartan 25 mg daily. (3) Dyslipidemia: Code(s): E78.5 - Hyperlipidemia, unspecified Status: Acute Assessment and Plan: On Atorvastatin. (4) Shortness of breath: Code(s): R06.02 - Shortness of breath Status: Acute Assessment and Plan: Probably due to rapid atrial fibrillation and/or pneumonitis. EKG no ST changes. Troponin OK. NTproBNP better at 767. Obtain echo. Subjective Date/time seen: 05/23/24 07:49 Interval history: Denies chest pain or sob. Exam Const: General: cooperative, healthy appearing and comfortable Orientation/consciousness: oriented to person, oriented to place and oriented to time Resp: Auscultation: clear to auscultation bilaterally, no crackles, no rales, no rhonchi and no wheezes Cardio: Rate: tachycardic Rhythm: abnormal rhythm Heart sounds: no murmurs Peripheral pulses: dorsalis pedis present Neuro: General: oriented to person, oriented to place and oriented to time Extrem: Right lower extremity: no edema Left lower extremity: edema Other: Trace edema of left leg Objective Data Vital Signs Vital Signs: Vital Signs - 24 hr 05/22/24 08:33 05/22/24 10:19 05/22/24 09:00 Temperature 97.2 F L Pulse Rate 62 123 H Respiratory Rate 16 Blood Pressure 144/101 H Pulse Oximetry 96 Oxygen Delivery Room Air 05/22/24 11:07 05/22/24 13:28 05/22/24 13:59 Temperature Pulse Rate 102 H 110 H 109 H Respiratory Rate 29 H 22 H 16 Blood Pressure 127/97 H 160/101 H 139/84 Pulse Oximetry 93 99 95 Oxygen Delivery 05/22/24 15:34 05/22/24 15:34 05/22/24 16:30 Temperature 98.7 F Pulse Rate 109 H 109 H 102 H Respiratory Rate 16 16 Blood Pressure 135/72 Pulse Oximetry 95 95 Oxygen Delivery Room Air 05/22/24 17:29 05/22/24 19:57 05/22/24 20:00 Temperature 96.9 F L Pulse Rate 109 H 103 H Respiratory Rate 18 Blood Pressure 159/98 H Pulse Oximetry 97 Oxygen Delivery Room Air 05/22/24 22:53 05/22/24 23:27 05/22/24 23:00 Temperature 97.8 F Pulse Rate 104 H 99 Respiratory Rate 18 Blood Pressure 175/85 H Pulse Oximetry 96 Oxygen Delivery Room Air 05/22/24 20:00 05/22/24 22:00 05/23/24 00:00 Temperature Pulse Rate 98 100 99 Respiratory Rate Blood Pressure Pulse Oximetry Oxygen Delivery 05/23/24 02:00 05/23/24 03:17 05/23/24 03:28 Temperature 97.7 F Pulse Rate 92 108 H Respiratory Rate 18 Blood Pressure 149/98 H Pulse Oximetry 95 Oxygen Delivery Room Air 05/23/24 04:00 05/23/24 06:00 05/23/24 06:56 Temperature 97.6 F Pulse Rate 97 100 101 H Respiratory Rate 20 Blood Pressure 165/60 H Pulse Oximetry 94 Oxygen Delivery Intake/Output Intake/Output: Intake & Output 05/20/24 05/21/24 05/22/24 05/23/24 23:59 23:59 23:59 23:59 Intake Total 170 1240 Output Total 600 700 Balance -430 540 Meds/Results Medications: Active Medications Generic Name Dose Route Start Last Admin Trade Name Freq PRN Reason Stop Dose Admin Acetaminophen 650 mg 05/22/24 12:55 05/23/24 03:23 Acetaminophen 325 Mg Tablet PO 650 mg Q4H PRN Administration Mild Pain (1-3) or Fever Hydrocodone Bitart/Acetaminophen 1 tab 05/22/24 12:55 Hydrocodone/Acetaminophen (*Crx) 5-325 Mg Tablet PO Q4H PRN Pain Rated 4-6 Ascorbic Acid 500 mg 05/23/24 09:00 Ascorbic Acid 500 Mg T
[2024-05-23] MEDS: ASCORBIC ACID 500 MG TABLET PO (09:15)
[2024-05-23] MEDS: DULoxetine HCL 60 MG CAPSULE.DR PO (09:16)
[2024-05-23] MEDS: CYANOCOBALAMIN 1,000 MCG TABLET 5000 MCG PO (09:16)
[2024-05-23] MEDS: CHOLECALCIFEROL 1,000 UNITS TABLET 2000 UNITS PO (09:16)
[2024-05-23] MEDS: ATORVASTATIN 20 MG TABLET PO (09:17)
[2024-05-23] MEDS: LORazepam (*CRX) 0.5 MG TABLET PO (09:17)
[2024-05-23] MEDS: LOSARTAN POTASSIUM 25 MG TABLET PO (09:17)
[2024-05-23] MEDS: DONEPEZIL HCL 5 MG TABLET PO (09:17)
[2024-05-23] MEDS: PANTOPRAZOLE 40 MG TABLET PO (09:17)
[2024-05-23] MEDS: METOPROLOL SUCCINATE EXT REL 100 MG TABCR PO (09:18)
[2024-05-23 10:47] LABS: Glucose Point of Care 156 mg/dl (65-105)
--- NOTE | 2024-05-23 14:52 | PHAR ---
pharmacy verified home med: * Use from home * Brexpiprazole [Rexulti] 1 mg tablet take 1 tablet by mouth once daily
[2024-05-23 16:19] LABS: Glucose Point of Care 165 mg/dl (65-105)
--- NOTE | 2024-05-23 16:29 | PM.IMPN ---
Progress Note: A&P Assessment and Plan (1) Atrial fibrillation with rapid ventricular response: Code(s): I48.91 - Unspecified atrial fibrillation Status: Acute Assessment and Plan: Patient presents with SOB. She has known hx of Afib. She is on metoprolol ER 50mg daily and Xarelto. EKG showing atrial fibrillation with RVR, rate 120, moderate ST depression in lateral leads, baseline artifact. Troponin negative x3. TSH normal. Echo showing normal LV systolic function with EF of 65-70% but with diastolic dysfunction. She has moderate concentric LVH. She has biatrial enlargement left greater than right. Is mild-moderate MR, moderate TR but no pulmonary hypertension. Patient was given diltiazem 10 mg IVP and then 5 mg IVP of metoprolol. Cardiology consulted and appreciate their input Metoprolol ER resumed and dose increased to 100mg. Continue Xarelto. Monitor on tele. (2) Shortness of breath: Code(s): R06.02 - Shortness of breath Status: Acute Assessment and Plan: CXR showing no acute cardiopulmonary disease. BNP 767. Echo as above. D-dimer mildly positive so CTA chest performed showing no PE but showing multiple subcentimeter pulmonary nodules and tree-in-bud appearance in the upper lobes suggestive of PNA. WBC was 11K but normal now. Check viral PCR. Hold on abx at this time (3) Diabetes mellitus type 2, controlled, with complications: Qualifiers: Diabetes mellitus termite renewal inspector insulin use: without group home use Qualified Code(s): E11.8 - Type 2 diabetes mellitus with unspecified complications Code(s): E11.8 - Type 2 diabetes mellitus with unspecified complications Status: Acute Assessment and Plan: A1c 7.0. The patient's blood glucose was reviewed on 05/23 Glucose remains well controlled. Continue AccuCheks covering with sliding scale. Hypoglycemia protocol available as needed. Continue to follow (4) Essential hypertension: Code(s): I10 - Essential (primary) hypertension Status: Acute Assessment and Plan: Patient's blood pressure was reviewed on 05/23 Blood pressure remains poorly controlled at times. Will continue to monitor since meds are being adjusted Plan Dementia - Stable. Continue Aricept Hx of left ankle fracture - ORIF left lateral malleolus 11/20/22. Seen by ortho in February. Left ankle xray showing an ankle fracture that is healed laterally with the plate medial malleolus was not fixed and appears to be a fibrous union. Start PT/OT. DVT Prophylaxis: Xarelto Code Status: Full code Subjective Date/time seen: 05/23/24 16:29 Interval history: 79yo female with pAFib, DM, HTN, carotid stenosis and recent ankle fracture here for shortness of breath. SOB better. Hx of ankle fracture s/p repair and still has trouble with pain Exam Narrative: AF 97.6 121/70 95 14 97% ra Gen - NARD Chest - CTA bilaterally, nml RR CV - irregularly irregular. nml RR Abd - Soft, NT/ND, Positive BS Ext - trace pedal edema, 2+ DP bilaterally Psych - Nml mood and affect Skin - Warm and dry Objective Data Vital Signs Vital Signs: Vital Signs - 24 hr 05/22/24 16:30 05/22/24 17:29 05/22/24 19:57 Temperature 98.7 F 96.9 F L Pulse Rate 102 H 109 H 103 H Respiratory Rate 16 18 Blood Pressure 135/72 159/98 H Pulse Oximetry 95 97 Oxygen Delivery Fraction of Inspired Oxygen 05/22/24 20:00 05/22/24 22:53 05/22/24 23:27 Temperature 97.8 F Pulse Rate 104 H 99 Respiratory Rate 18 Blood Pressure 175/85 H Pulse Oximetry 96 Oxygen Delivery Room Air Fraction of Inspired Oxygen 05/22/24 23:00 05/22/24 20:00 05/22/24 22:00 Temperature Pulse Rate 98 100 Respiratory Rate Blood Pressure Pulse Oximetry Oxygen Delivery Room Air Fraction of Inspired Oxygen 05/23/24 00:00 05/23/24 02:00 05/23/24 03:17 Temperature 97.7 F Pulse Rate 99 92 108 H Respiratory
[2024-05-23] MEDS: RIVAROXABAN 20 MG TABLET PO (17:29)
[2024-05-23] MEDS: prednisoLONE ACETATE 1% OPHTH 5 ML 1 DROP LEFT EYE (20:14)
[2024-05-23] MEDS: ERYTHROMYCIN OPHTH OINTMENT 1 GM TUBE 1 APPLIC LEFT EYE (20:25)
[2024-05-23 20:44] LABS: Glucose Point of Care 245 mg/dl (65-105)
[2024-05-23 21:09] LABS: Influenza A QL RT-PCR Negative (Negative); Influenza B QL RT-PCR Negative (Negative); RSV RNA, RT-PCR Negative (Negative); SARS-CoV-2 RNA PCR Negative (Negative)
[2024-05-24] VITALS (14 sets, daily range): BP systolic 104–156; BP diastolic 58–97; PULSE 67–110; RESP 16–20; TEMP 36.4–36.6; O2SAT 93–99
[2024-05-24 05:36] LABS: Magnesium 1.9 mg/dL (1.6-2.3)
[2024-05-24] MEDS: LEVOTHYROXINE SODIUM 25 MCG TABLET PO (05:56)
--- NOTE | 2024-05-24 07:56 | PM.PNCARD ---
Progress Note: A&P Assessment and Plan (1) Atrial fibrillation: Code(s): I48.91 - Unspecified atrial fibrillation Status: Acute Assessment and Plan: Rapid due to volume depletion or pneumonitis. Got Diltiazem 10 mg IVx1 in ED and her usual Metoprolol 50 mg dose and HR minimally fast. On Xarelto. Mag 1.2. On Metoprolol Succinate 100 mg daily. Start Diltiazem CD 180 mg daily. If HR <100 bpm then may d/c home and f/u with me in 1-2 weeks. (2) Essential hypertension: Code(s): I10 - Essential (primary) hypertension Status: Acute Assessment and Plan: Stable. Started Losartan 25 mg daily. (3) Dyslipidemia: Code(s): E78.5 - Hyperlipidemia, unspecified Status: Acute Assessment and Plan: On Atorvastatin. (4) Shortness of breath: Code(s): R06.02 - Shortness of breath Status: Acute Assessment and Plan: Probably due to rapid atrial fibrillation and/or pneumonitis. EKG no ST changes. Troponin OK. NTproBNP better at 767. Subjective Date/time seen: 05/24/24 07:56 Interval history: Denies chest pain or sob. Exam Const: General: cooperative, healthy appearing and comfortable Orientation/consciousness: oriented to person, oriented to place and oriented to time Resp: Auscultation: clear to auscultation bilaterally, no crackles, no rales, no rhonchi and no wheezes Cardio: Rate: tachycardic Rhythm: abnormal rhythm Heart sounds: no murmurs Peripheral pulses: dorsalis pedis present Neuro: General: oriented to person, oriented to place and oriented to time Extrem: Right lower extremity: no edema Left lower extremity: edema Other: Trace edema of left leg Objective Data Vital Signs Vital Signs: Vital Signs - 24 hr 05/23/24 08:00 05/23/24 08:00 05/23/24 08:25 Temperature Pulse Rate 101 H 101 H Respiratory Rate 20 Blood Pressure Pulse Oximetry 94 94 Oxygen Delivery Room Air Room Air Fraction of Inspired Oxygen 21 05/23/24 09:18 05/23/24 10:00 05/23/24 12:00 Temperature 97.6 F Pulse Rate 106 H 92 101 H Respiratory Rate 14 Blood Pressure 121/70 Pulse Oximetry 97 Oxygen Delivery Fraction of Inspired Oxygen 05/23/24 12:00 05/23/24 12:00 05/23/24 14:00 Temperature Pulse Rate 64 101 H 95 Respiratory Rate 14 Blood Pressure Pulse Oximetry 97 Oxygen Delivery Room Air Fraction of Inspired Oxygen 21 05/23/24 16:00 05/23/24 16:00 05/23/24 16:00 Temperature 96.9 F L Pulse Rate 95 95 96 Respiratory Rate 14 18 Blood Pressure 120/60 Pulse Oximetry 97 95 Oxygen Delivery Room Air Fraction of Inspired Oxygen 21 05/23/24 18:00 05/23/24 20:08 05/23/24 20:00 Temperature Pulse Rate 103 H 103 H 91 Respiratory Rate 18 Blood Pressure Pulse Oximetry 95 Oxygen Delivery Room Air Fraction of Inspired Oxygen 21 05/23/24 20:37 05/23/24 19:01 05/23/24 22:00 Temperature 98.7 F Pulse Rate 84 89 Respiratory Rate 18 Blood Pressure 110/60 Pulse Oximetry 93 93 Oxygen Delivery Room Air Fraction of Inspired Oxygen 21 05/24/24 00:00 05/24/24 00:43 05/24/24 00:00 Temperature 97.6 F Pulse Rate 89 93 96 Respiratory Rate 18 18 Blood Pressure 124/65 Pulse Oximetry 93 96 Oxygen Delivery Room Air Fraction of Inspired Oxygen 05/24/24 02:00 05/24/24 03:47 05/24/24 04:10 Temperature 97.9 F Pulse Rate 101 H 100 100 Respiratory Rate 18 18 Blood Pressure 154/59 H Pulse Oximetry 96 96 Oxygen Delivery Room Air Fraction of Inspired Oxygen 05/24/24 04:00 05/24/24 06:00 Temperature Pulse Rate 101 H 100 Respiratory Rate Blood Pressure Pulse Oximetry Oxygen Delivery Fraction of Inspired Oxygen Intake/Output Intake/Output: Intake & Output 05/21/24 05/22/24 05/23/24 05/24/24 23:59 23:59 23:59 23:59 Intake Total 170 2200 Output Total 600 2200 400 Balance -430 0 -400 Meds/Results Medications: Act
[2024-05-24] MEDS: DONEPEZIL HCL 5 MG TABLET PO (08:47)
[2024-05-24] MEDS: DULoxetine HCL 60 MG CAPSULE.DR PO (08:47)
[2024-05-24] MEDS: METOPROLOL SUCCINATE EXT REL 100 MG TABCR PO (08:47)
[2024-05-24] MEDS: ATORVASTATIN 20 MG TABLET PO (08:47)
[2024-05-24] MEDS: CHOLECALCIFEROL 1,000 UNITS TABLET 2000 UNITS PO (08:47)
[2024-05-24] MEDS: ASCORBIC ACID 500 MG TABLET PO (08:47)
[2024-05-24] MEDS: PANTOPRAZOLE 40 MG TABLET PO (08:47)
[2024-05-24] MEDS: CYANOCOBALAMIN 1,000 MCG TABLET 5000 MCG PO (08:47)
[2024-05-24] MEDS: LOSARTAN POTASSIUM 25 MG TABLET PO (08:47)
[2024-05-24 08:48] LABS: Glucose Point of Care 127 mg/dl (65-105)
[2024-05-24] MEDS: dilTIAZem HCL CD 180 MG CAP.24HR PO (08:48)
[2024-05-24] MEDS: DORZOLAMIDE HCL 2% OPHTH DROPS 1 DROP EACH EYE ×2 (08:48→12:36)
[2024-05-24 11:33] LABS: Glucose Point of Care 244 mg/dl (65-105)
[2024-05-24] MEDS: INSULIN ASPART (*BKC) 100 UNITS/ML SUB-Q (12:35)
--- NOTE | 2024-05-24 15:08 | PM.DS ---
DS: Admitting Diagnosis Discharge Date 05/24/24 Admitting Diagnosis Shortness of breath DS: Discharge Diagnosis Discharge Diagnosis (1) Atrial fibrillation with rapid ventricular response: Code(s): I48.91 - Unspecified atrial fibrillation Status: Acute (2) Shortness of breath: Code(s): R06.02 - Shortness of breath Status: Acute (3) Diabetes mellitus type 2, controlled, with complications: Qualifiers: Diabetes mellitus snf insulin use: without snf use Qualified Code(s): E11.8 - Type 2 diabetes mellitus with unspecified complications Code(s): E11.8 - Type 2 diabetes mellitus with unspecified complications Status: Acute (4) Essential hypertension: Code(s): I10 - Essential (primary) hypertension Status: Acute (5) Dementia: Code(s): F03.90 - Unspecified dementia, unspecified severity, without behavioral disturbance, psychotic disturbance, mood disturbance, and anxiety Status: Acute (6) Lung nodule: Code(s): R91.1 - Solitary pulmonary nodule Status: Acute DS: Summary Hospital Course Reason for hospitalization: 79yo female with pAFib, DM, HTN, carotid stenosis and recent ankle fracture here for shortness of breath. Please see H&P for details. Hospital Course: Patient presents with SOB. She has known hx of Afib. She is on metoprolol ER 50mg daily and Xarelto. EKG showing atrial fibrillation with RVR, rate 120, moderate ST depression in lateral leads, baseline artifact. Heart rate remained elevated. Troponin negative x3. TSH normal. Echo showing normal LV systolic function with EF of 65-70% but with diastolic dysfunction. She has moderate concentric LVH. She has biatrial enlargement left greater than right. She has mild-moderate MR, moderate TR but no pulmonary hypertension. Patient was given diltiazem 10 mg IVP and then 5 mg IVP of metoprolol. Cardiology consulted and appreciate their input. Metoprolol ER resumed and dose increased to 100mg. We continued Xarelto. CXR showing no acute cardiopulmonary disease. BNP 767 which is better. D-dimer mildly positive so CTA chest performed showing no PE but showing multiple subcentimeter pulmonary nodules and tree-in-bud appearance in the upper lobes suggestive of PNA. WBC was 11K but normal now. No fevers or cough. Feels well. Influenza, COVID and RSV PCR negative. A1c 7.0. The patient's blood glucose was monitored with AccuCheks covering with sliding scale. Hypoglycemia protocol was available as needed. Patient has a hx of left ankle fracture with ORIF left lateral malleolus 11/20/22. Seen by ortho in February. Left ankle xray showing an ankle fracture that is healed laterally with the plate medial malleolus was not fixed and appears to be a fibrous union. She worked with PT/OT. Heart rate was better but not at goal so Diltiazem CD added. Heart rate became better controlled. It ws felt the SOB was related to the uncontrolled AFib. She overall did well and was able to be discharged on 05/24/24. Status at Discharge Cognitive/behavioral status at discharge: stable Time Spent with Patient Time attestation: Total time spent providing and/or coordinating discharge services: 35 minutes Time spent: Greater than 30 minutes Exam Narrative: AF 97.6 104/58 86 16 95% ra Gen - NARD Chest - CTA bilaterally, nml RR CV - irregularly irregular. Tele showing HR better controlled Abd - Soft, NT/ND, Positive BS Ext - no pitting pedal edema, 2+ DP bilaterally Psych - Nml mood and affect Skin - Warm and dry DS: Data Data Completed and Pending Labs on day of discharge: Labs from last 24 hours 05/24/24 05/24/24 05/24/24 11:23 07:49 04:42 POC Capillary Glucose 244 H 127 H Magnesium 1.9 Influenza A (RT-PCR) Influenza B (RT-PCR) RSV (RT-PCR) SARS-CoV-2 RNA (RT-PCR) 05/23/24 05/23/24 05/23/24 20:40 20:26 15:40 POC Capillary Glucose 245 H 165 H Magnesium
[2024-05-24 16:29] LABS: Glucose Point of Care 161 mg/dl (65-105)
== END 2024-05-24 16:35 | disposition home or self-care (01) ==
LOC: ANHED 09:27 → ANHIMU 05-23 12:28
PROVIDERS: Internal Medicine Cardiovascular Disease; Student in an Organized Health Care Education/Training Program; Admitting Provider General Practice; Emergency Provider Emergency Medicine; PCP Family Medicine; Visit Provider Internal Medicine
DX: I48.91 Unspecified atrial fibrillation (principal); R06.02 Shortness of breath; R91.1 Solitary pulmonary nodule; E03.9 Hypothyroidism, unspecified; E11.42 Type 2 diabetes mellitus with diabetic polyneuropathy; E78.2 Mixed hyperlipidemia; F03.90 Unspecified dementia, unspecified severity, without behavioral disturbance, psychotic disturbance, mood disturbance, and anxiety; E11.51 Type 2 diabetes mellitus with diabetic peripheral angiopathy without gangrene; E55.9 Vitamin D deficiency, unspecified; I65.23 Occlusion and stenosis of bilateral carotid arteries; F32.A Depression, unspecified; K21.9 Gastro-esophageal reflux disease without esophagitis; I11.9 Hypertensive heart disease without heart failure; Z79.01 Long term (current) use of anticoagulants; Z79.84 Long term (current) use of oral hypoglycemic drugs; Z20.822 Contact with and (suspected) exposure to COVID-19
CPT/HCPCS: 36415; 71046; 71275; 80053; 82948; 83036; 83735; 83880; 84443; 84484; 85025; 85380; 87637; 93005; 93306; 96361; 96365; 96374; 96375; 99285; A9270; G0378; J1815; J3475; J7120; Q9967

== ENCOUNTER 2024-06-02 12:36 | Outpatient (CLI) | payer MEDICARE, SELFPAY ==
--- NOTE | ~2024-06-02 | XR_ITS ---
EXAMINATION: XR chest 2V Exam Date/Time: 06/02/2024 12:47 CDT HISTORY: R06.00 - Dyspnea, unspecified Comparison: 05/22/2024. RESULT: Lines, tubes, and devices: None. Lungs and pleura: Clear. Cardiomediastinal silhouette: Stable. Mitral annulus calcification. Other: No acute osseous or upper abdominal finding. IMPRESSION: No acute cardiopulmonary process. Reviewed, dictated and finalized at location K.
== END 2024-06-02 12:37 | disposition home or self-care (01) ==
PROVIDERS: PCP Family Medicine; Visit Provider Student in an Organized Health Care Education/Training Program
DX: R06.00 Dyspnea, unspecified (principal)
CPT/HCPCS: 71046

== ENCOUNTER 2024-06-07 10:06 | Outpatient (CLI) | payer MEDICARE, SELFPAY ==
--- NOTE | ~2024-06-07 | US_ITS ---
Limited Abdominal Sonogram: Real-time sonographic imaging of the right upper quadrant was performed. Clinical History: Abnormal serum enzyme levels Findings: The liver appears normal with no evidence of mass lesion or bile duct dilatation. Main por tariq vein demonstrates normal direction of flow. The gallbladder is well distended, and demonstrates m inimal layering sludge/debris. The common bile duct measures 11 mm. Main pancreatic duct measures 4 m m. The visualized pancreas, aorta, and IVC are otherwise unremarkable. Impression: Mild dilatation of common bile duct and main pancreatic duct, uncertain significance. Correlate with LFTs. Consider CT or MR to further assess for any obstructing mass, if indicated, but no intrahepatic biliary dilatation evident. Findings could be related to patient age. Minimal gallbladder debris/sludge. Reviewed, dictated and finalized at location . Impression: Mild dilatation of common bile duct and main pancreatic duct, uncertain signifi cance. Correlate with LFTs. Consider CT or MR to further assess for any obstruc ting mass, if indicated, but no intrahepatic biliary dilatation evident. Findin gs could be related to patient age. Minimal gallbladder debris/sludge.
== END 2024-06-07 10:07 | disposition home or self-care (01) ==
LOC: MICIMG 10:07
PROVIDERS: PCP Internal Medicine Cardiovascular Disease; Visit Provider Student in an Organized Health Care Education/Training Program
DX: R74.8 Abnormal levels of other serum enzymes (principal)
CPT/HCPCS: 76705

== ENCOUNTER 2024-06-09 22:52 | Observation (INO) | payer MEDICARE, SELFPAY ==
--- NOTE | ~2024-06-09 | XR_ITS ---
EXAMINATION: XR chest 2V DATE: 06/09/2024 23:30 INDICATION: Shortness of breath. TECHNIQUE: Frontal and lateral views of the chest were obtained. COMPARISON: Chest 2 views 06/02/2024, chest CT 05/22/2024 FINDINGS: There are nodules in the upper lung zones. No pleural effusion or pneumothorax. The heart s ize is normal. There is mild chronic height loss of multiple vertebral bodies. IMPRESSION: 1. Nodules in the upper lung zones, consistent with pneumonia. Reviewed, dictated and finalized at location A.
--- NOTE | ~2024-06-09 | XR_ITS ---
MODIFIED ESOPHAGRAM HISTORY: Dysphagia. TECHNIQUE: Modified barium esophagram was performed on 06/11/2024. I administered fluoroscopy and perf ormed the exam with speech pathologist. Patient was seated for lateral fluoroscopic imaging for radha stion of thin liquids, pudding, solids and quantified amounts, followed by thin liquids in uncontroll ed amounts. This was recorded on tape. A single fluoroscopic spot image was also recorded. The DAP fo r this procedure was 3.152 Gycm2. The amount of fluoroscopy time used during this procedure was 5.0 m inutes. FINDINGS: Oral stage: Adequate function. Increased mastication time with solids and difficulty initiating the s wallow with a pill. Pharyngeal stage: Adequate function. There is vallecular residue which cleared with multiple swallows . No laryngeal penetration or aspiration. Cervical/esophageal stage: Adequate function. IMPRESSION: Patient tolerated regular consistency oral feedings in the upright position. Please maggy elate with speech pathologist findings and specific feeding recommendations. Reviewed, dictated and finalized at location A. IMPRESSION: Patient tolerated regular consistency oral feedings in the upright position. Please correlate with speech pathologist findings and specific feedi ng recommendations.
--- NOTE | ~2024-06-09 | CT_ITS ---
CT Scan of the Chest without Contrast: Clinical Indication: Dyspnea Technique: Contiguous sections were acquired throughout the chest without intravenous contrast. Dose reduction technique was used on this scan by utilizing automated exposure control and iterative recon struction technique. The dose-length product (DLP) was 127.54 mGy-cm. COMPARISON: 05/22/2024 Findings: There is no evidence of any significant mediastinal, hilar or axillary lymphadenopathy. There are ath erosclerotic calcifications of the coronary arteries and aorta. There is no evidence of pleural or pericardial effusion. Biapical predominant tree-in-bud opacities are essentially stable from prior exam, most compatible sm all airways infectious process. Stable 8 mm left upper lobe pulmonary nodule. Images through the upper abdomen reveal distended gallbladder and probable dilated common bile duct, similar to prior exam. Stable compression deformities of T9 and L1. Impression: Stable tree-in-bud opacities, with biapical predominance, compatible with small airways infectious pr ocess. Stable compression deformities of T9 and L1. Reviewed, dictated and finalized at location M. Impression: Stable tree-in-bud opacities, with biapical predominance, compatible with small airways infectious process. Stable compression deformities of T9 and L1.
--- NOTE | 2024-06-09 22:56 | ECG_ITS ---
Test Date: 2024-06-09 23:09:24 Measurements Intervals [place]flake Rate: 99 P: 0 MT: 0 QRS: 24 QRSD: 94 T: 58 QT: 352 QTc: 452 Interpretive Statements ATRIAL FIBRILLATION MODERATE ST DEPRESSION [0.05+ mV ST DEPRESSION] Compared to ECG 05/22/2024 08:59:19 No significant changes Electronically Signed On 06-10-2024 10:40:01 CDT by Rickie Callejas M.D.
[2024-06-09 22:59] VITALS: BP 113/72; PULSE 91; RESP 18; TEMP 36.4; O2SAT 97
[2024-06-09 23:29] LABS: Basophils Percent Auto 0.3 % (0.2-1.2); Eosinophils Absolute Auto 0.1 K/mm3 (0-0.3); Eosinophils Percent Auto 1.3 % (0-4.4); Hematocrit 48.6 % (37.0-47.0); Hemoglobin 16.4 g/dL (12.0-15.0); Immature Granulocyte Absolute 0.02 K/mm3 (0.00-0.031); Immature Granulocyte Percent A 0.2 % (0-0.5); Lymphocytes Absolute Auto 1.08 K/mm3 (0.9-3.2); Lymphocytes Percent Auto 11.6 % (18.3-44.2); Mean Corpuscular HGB Conc 33.7 g/dl (32-36); Mean Corpuscular Hemoglobin 34.3 pg (26-34); Mean Corpuscular Volume 101.7 fl (80-100); Mean Platelet Volume 9.8 fl (7.4-10.4); Monocytes Absolute Auto 1.4 K/mm3 (0.1-0.6); Monocytes Percent Auto 14.8 % (2.6-8.5); Neutrophils Absolute Auto 6.7 K/mm3 (1.3-6.7); Neutrophils Percent Auto 71.8 % (45.5-73.1); Nucleated Red Blood Cells Perc 0.3 % (0.0-0.2); Platelet Count Result 238 k/mm3 (150-375); Red Blood Count 4.78 M/mm3 (4.2-5.4); Red Cell Distribution Width 12.6 % (11.5-14.5); White Blood Count 9.3 K/mm3 (4.5-10.0)
[2024-06-09 23:41] LABS: Alanine Aminotransferase 130 U/L (6-35); Albumin Level 4.5 g/dL (3.5-5.1); Alkaline Phosphatase 356 U/L (38-126); Anion Gap 12 mmol/L (4-12); Aspartate Amino Transferase 110 U/L (14-36); Blood Urea Nitrogen 16 mg/dL (7-17); Calcium 9.4 mg/dL (8.4-10.2); Carbon Dioxide 26 mmol/L (22-30); Chloride 96 mmol/L (98-107); Estimated CRCL calculation 48 ml/min; Estimated Glomerular Filt Rate > 60; Glucose 145 mg/dL (65-110); Potassium 3.9 mmol/L (3.4-5.0); Sodium 134 mmol/L (137-145)
[2024-06-09 23:52] LABS: Troponin I < 0.012 ng/mL (0.000-0.034)
[2024-06-10] VITALS (8 sets, daily range): BP systolic 123–159; BP diastolic 87–134; PULSE 90–115; RESP 16–25; TEMP 36.4–36.6; O2SAT 95–97; BMI 23.7
--- NOTE | 2024-06-10 00:41 | ED.SOB ---
HPI - SOB/Dyspnea General Chief Complaint: Shortness of Breath/Dyspnea Stated Complaint: I can't breath well , Time Seen by Provider: 06/10/24 00:40 Source: patient Mode of arrival: ambulatory Limitations: no limitations History of Present Illness HPI Narrative: This is a 79-year-old female with PMH of HTN, DM type 2, diastolic HF, AFib RVR, PVD, stroke, carotid artery stenosis who presents to the ED for chief complaint shortness of breath over the last couple of days and worse today. States that her breathing became very shallow about 1.5 hours prior to arrival. States that the breathing is worse when transferring from chair to wheelchair. Reports that her mobility has been very decreased over the past year. Her is bedside and supplementing some history. She does not feel that she has had a severe cough. Unsure of fevers. She does note that the shortness of breath seems to get worse when lying flat. Reports that the leg swelling has been chronic bilaterally. According to chart review patient was seen 06/02/2024 by PCP after hospital discharge and was started on doxycycline for 10 days via PCP for possible pneumonia. Patient was admitted to our hospital with AFib, RVR. She has been taking her doxycycline as prescribed Related Data Home Medications Medication Instructions Recorded Confirmed ascorbic acid (vitamin C) 500 mg 500 mg PO DAILY 11/18/22 06/02/24 tablet (Vitamin C) cyanocobalamin (vitamin B-12) 5,000 mcg PO DAILY 11/18/22 06/02/24 5,000 mcg disintegrating tablet zinc gluconate 50 mg tablet 50 mg PO DAILY 11/18/22 06/02/24 dorzolamide 2 % eye drops 1 drp EACH EYE TID 02/09/24 06/02/24 brexpiprazole 1 mg tablet (Rexulti) 1 mg PO DAILY 05/22/24 06/02/24 cholecalciferol (vitamin D3) 50 50 mcg PO DAILY 05/22/24 06/02/24 mcg (2,000 unit) tablet (Vitamin D3) donepezil 5 mg tablet 5 mg PO DAILY 05/22/24 06/02/24 erythromycin 5 mg/gram (0.5 %) eye 1 applic LEFT EYE HS 05/22/24 06/02/24 ointment metformin 750 mg tablet,extended 500 mg PO BID 05/22/24 06/02/24 release 24 hr prednisolone acetate 1 % eye 1 drp LEFT EYE HS 05/22/24 06/02/24 drops,suspension Allergies Allergy/AdvReac Type Severity Reaction Status Date / Time amoxicillin Allergy Intermediate Rash Verified 06/02/24 11:33 clavulanic acid Allergy Intermediate Rash Verified 06/02/24 11:33 erythromycin base Allergy Unknown Unknown Verified 06/02/24 11:33 meperidine Allergy Unknown Unknown Verified 06/02/24 11:33 Penicillins Allergy Unknown Unknown Verified 06/02/24 11:33 Review of Systems Review of Systems: All systems as dictated in [facility] Past Medical History Medical History Arthralgia of hands, bilateral Atrial fibrillation with RVR Atrophic vaginitis Bilateral carotid artery stenosis Chronic left shoulder pain Cubital tunnel syndrome on left Depression 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besity (BMI 30-39.9) Other hyperlipidemia Peripheral neuropathy PVD (peripheral vascular disease) Stroke Tenesmus (rectal) Vitamin D deficiency Surgical History Surgical History Bimalleolar fracture of left ankle ORIF left ankle on 11/20/2022 H/O: hysterectomy History of adenoidectomy History of back surgery History of bilateral knee replacement (~2002) jb 2002 History of hand surgery Family History Family History Mother Diabetes mellitus Cerebrovascular accident Family history of dementia, Onset Age: 80 Father Family history of congestive heart failure, Onset Age: 76 Other
[2024-06-10 01:41] LABS: NT Pro B Type Natriuretic Pept 970 pg/mL (19.9-100)
[2024-06-10 02:09] LABS: Fractional Inspired Oxygen 21 %; HCO3 VBG 23.1 mEq/l (24.0-30.0); PCO2 VBG 36.3 mmHg (42.0-48.0); PO2 VBG 73.2 mmHg (35.0-45.0)
[2024-06-10 02:11] LABS: Device ROOM AIR; pH VBG 7.421 (7.300-7.400)
[2024-06-10] MEDS: levoFLOXacin 750 MG/D5W 150 ML 750 MG/150 ML BAG 100 MG IVPB (02:13)
[2024-06-10 02:29] LABS: Lactic Acid Reflex 1.7 mmol/L (0.7-2.0)
[2024-06-10 03:32] LABS: Troponin I < 0.012 ng/mL (0.000-0.034)
--- NOTE | 2024-06-10 05:24 | ADMGEN ---
This patient, Trisha Sparrow, was admitted to 3 [facility] Surg Room 304-02. Patient/family oriented to hospital policies and general routines including ID bracelet, bed and alarms, visiting hours, pain management, procedures, bathroom and other care routines, personal items, smoking policy, room service/diet, and visiting hours. Information on how to activate the Rapid Response Team has been discussed. Patient/Family are encouraged to report perceived risks to care and to ask questions if they do not understand what they are told or what they should do.
[2024-06-10] MEDS: VANCOMYCIN 1,750 MG/NS 500 ML 1,750 MG/500 ML BAG 250 MG IVPB (05:38)
[2024-06-10 05:58] LABS: MRSA (PCR) NOT DETECTED (NOT DETECTE)
--- NOTE | 2024-06-10 08:01 | PM.CNCAR ---
Assessment and Plan Assessment and plan (1) Pneumonia: Qualifiers: Laterality: bilateral Lung location: upper lobe of lung Pneumonia type: due to unspecified organism Qualified Code(s): J18.9 - Pneumonia, unspecified organism Code(s): J18.9 - Pneumonia, unspecified organism Status: Acute Assessment and Plan: On antibiotics and managed by hospitalist. (2) Atrial fibrillation: Code(s): I48.91 - Unspecified atrial fibrillation Status: Acute Assessment and Plan: [id number] 5. On Xarelto. Rate control with Diltiazem and Metoprolol. Monitor HR. (3) Essential hypertension: Code(s): I10 - Essential (primary) hypertension Status: Acute Assessment and Plan: Stable. (4) Dyslipidemia: Code(s): E78.5 - Hyperlipidemia, unspecified Status: Acute Assessment and Plan: On Atorvastatin. (5) Diastolic dysfunction: Code(s): I51.89 - Other ill-defined heart diseases Status: Acute Assessment and Plan: Monitor to avoid fluid overload with IVF while treating pneumonia. History of Present Illness History of Present Illness Consult date/time: 06/10/24 08:01 Reason For Visit: I can't breath well , Narrative: Patient is a 79 yr old woman who is my regular cardiology patient presents to ER for sob. She has a history of carotid disease S/P Right CEA and being followed by [facility] Vascular surgery, diastolic dysfunction, dyslipidemia, atrial fibrillation diagnosed on 06/28/19, covid infection on 11/24/22. States she felt sob for the last 2 days and found to have bilateral pneumonia on CXR and CT chest. She has cough with white sputum production. Denies chest pain, orthopnea, PND. 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 She was hospitalized after having orthostatic syncope and fractured ankle on 11/18/22. She reports getting more LARSON and stumbling with walking only 10 feet. She does not drink much water but drinks diet dr pepper. Cardiovascular Procedures Echo/MUGA:: 05/23/24 Echo: EF 65-70%, mod LVH, diastolic dysfunction (E/e' 24), mod LAE, mild YARITZA, mod MAC, mild-mod MR, mod TR. 11/19/22 Echo: EF 60-65%, diastolic dysfunction (E/e' 10), mild biatrial enlargement, severe MAC, mild-mod MR/TR. 11/06/20 Echo: EF 60-65%, diastolic dysfunction (E/e' 15), severe LAE, mod MAC, mild-mod MR/TR. 07/13/19 Echo EF 45-50%, mild LVH, diastolic dysfunction (E/e' 13), mod LAE, severe MAC, mild-mod MR, mod TR. Electrophysiology:: 10/02/23 EKG: Atrial fibrillation at 91 bpm, borderline ST-T wave. 11/21/22 EKG: Atrial fibrillation at 84 bpm, PVC. 06/28/19 EKG: Atrial fibrillation at 148 bpm, nonspecific ST-T wave in lateral leads. Stress Tests:: 07/18/19 Lexiscan myoview: Negative for ischemia. 04/25/22 PUNEET right 1.04, TBI mildly abnormal at 0.56, left PUNEET 1.11. 08/03/17 Carotid CTA: occluded right CCA; 50% left carotid bulb/ICA stenosis. 2006 Vascular srugery: Right CEA. Review of Systems Review of Systems: All systems reviewed & are unremarkable except as noted in HPI and below Constitutional: Constitutional: Reports as per HPI, Denies chills and Denies fever(s) Cardiovascular: Cardiovascular: Reports as per HPI and Denies chest pain Respiratory: Respiratory: Reports as per HPI, Reports cough and Reports dyspnea Gastrointestinal: Gastrointestinal: Reports as per HPI and Denies abdominal pain Genitourinary: Genitourinary: Reports as per HPI and Denies dysuria Musculoskeletal: Musculoskeletal: Reports as per HPI and Reports arthralgias Neurologic: Reports as per HPI, Denies dizziness and Denies syncope [facility] Past Medical History Medical History Arthralgia of hands, bilateral Atrial fibrillation with RVR Atrophic vaginitis Bilateral carotid artery stenosis Chronic left shoulder pain Cubital tunnel syndrome on left Depression Dermatillom
[2024-06-10] MEDS: METOPROLOL SUCCINATE EXT REL 100 MG TABCR PO (11:33)
[2024-06-10] MEDS: dilTIAZem HCL CD 180 MG CAP.24HR PO (11:33)
[2024-06-10 13:46] LABS: Add Urine Microscopic? YES; Appearance Urine Clear (Clear); Bacteria Urine None Seen /hpf; Bilirubin Urine Negative (Negative); Blood Urine Negative (Negative); Color Urine Yellow (Yellow); Glucose Urine UA Negative (Negative); Ketones Urine Negative (Negative); Leukocyte Esterase Ur Trace LEU/UL (Negative); Nitrate Urine Negative (Negative); Non Pathogenic Casts 0-2; Protein Urine Negative (Negative); RBC Urine 0-2 /hpf (0-2); Squamous Epithelial Cell Urine None Seen /hpf (Few); WBC Urine 0-5 /hpf (0-3)
--- NOTE | 2024-06-10 14:59 | PM.IMHP ---
H&P: HPI History of Present Illness Date/Time: 06/10/24 14:59 Chief Complaint: Shortness of breath/dyspnea Narrative: This is an 79-year-old female with a significant past medical history of hypertension, type 2 diabetes mellitus, diastolic heart failure, AFib, peripheral vascular disease, stroke, carotid artery stenosis who presents to the hospital with complaints of shortness of breath/dyspnea that has worsened over the last couple of days. Patient also stated in the ER that she wanted to kill herself. Patient reported that she is feeling very depressed and feels like her health has declined as well as her independence. She states that she is felt this way for about a month or more. She denies having any plan to follow through with any suicidal ideations but has thought about it more than once. She was somewhat tearful when talking about her loss of independence. She states she is not able to do which she likes to do. Patient is currently 1-1 with suicide sitter and is technically medically cleared for psych evaluation. She denies any fever, chills, nausea, vomiting, diarrhea, abdominal pain, chest pain. She does report shortness of breath. She also reported trouble swallowing that has been ongoing for quite some time. She states that she feels like things are getting stuck in her throat or Will go down. I will go ahead and get GI involved while we are waiting psych evaluation. She was supposed to have a barium swallow done next week to evaluate this swallowing issue. She was recently seen at her primary care office and was diagnosed with pneumonia and started on doxycycline which she finished a 10 day course. Workup in the hospital included a CT of the chest which showed stable tree-in-bud opacities with biapical predominance compatible with small airway infectious process, stable compression deformities of T9 and L1. Initial labs showed a normal white blood cell count of 9.3, hemoglobin 16.4, hematocrit 48.6, sodium 134, chloride 96, lactic acid 1.9, total bili 2.0, AST 110, ALT 130, alk-phos 356, proBNP 970, troponin negative x2. MRSA was not detected. Blood cultures were obtained and pending. EKG showing atrial fibrillation with a rate of 99. Patient was given a dose of vancomycin and Levaquin while in the ED. since MRSA was negative she was started on monotherapy with just Levaquin oral dosing. Review of Systems Review of Systems: All systems reviewed & are unremarkable except as noted in HPI and below Constitutional: Constitutional: Reports as per HPI and Reports no additional constitutional complaints Eyes: Eyes: Reports as per HPI and Reports no additional eye complaints ENT: Reports system reviewed and no additional complaints, except as documented and Reports as per HPI Cardiovascular: Cardiovascular: Reports as per HPI and Reports no additional cardiovascular complaints Respiratory: Respiratory: Reports as per HPI and Reports no additional respiratory complaints Gastrointestinal: Gastrointestinal: Reports as per HPI and Reports no additional gastrointestinal complaints Genitourinary: Genitourinary: Reports no additional female genitourinary complaints and Reports as per HPI Musculoskeletal: Musculoskeletal: Reports no additional musculoskeletal complaints and Reports as per HPI Integumentary/Breasts: Skin/Breast: Reports system reviewed and no additional complaints, except as docu and Reports as per HPI Neurologic: Reports system reviewed and no additional complaints, except as documented and Reports as per HPI Psychiatric: Psychiatric: Reports no additional psychiatric complaints and Reports as per HPI [facility] Past Medical History Medical History Arthralgia of hands, bilateral Atrial fibrillation with RVR Atrophic vaginitis Bilateral carotid artery stenosis Chronic left shoulder pain Cubital tunnel syndrome on left Depression Dermatillomania in adult Diabete
[2024-06-10] MEDS: RIVAROXABAN 20 MG TABLET PO (17:19)
[2024-06-10] MEDS: DORZOLAMIDE HCL 2% OPHTH DROPS 1 DROP EACH EYE (17:19)
--- NOTE | 2024-06-10 19:44 | PC.NURSE ---
pt disorientated wants to get up. pt on bed armijo for BM. be change with staff x 3. Pt knows he is at a hospital unsure of year day date.leads replaced
[2024-06-10] MEDS: prednisoLONE ACETATE 1% OPHTH 5 ML 1 DROP LEFT EYE (20:04)
[2024-06-10] MEDS: ERYTHROMYCIN OPHTH OINTMENT 1 GM TUBE 1 APPLIC LEFT EYE (20:04)
--- NOTE | 2024-06-10 21:20 | PC.NURSE ---
Patient aware she is at a hospital unsure of which one and that it is June 2024. She states that thoughts of self-harm do occasionally cross her mind. She is fearful because she has recently become physically weak and very forgetful. After several minutes at bedside, patient began telling this RN that when she had her recent fall, her aunt who is a nurse was there and fixed her up. Also, states that her aunt and aunt's girlfriend live in her house and appear only to her at certain times, typically around breakfast, but that nobody except her can see them including patient's daughter and . Patient states that her aunt is 15 years older than her and works as a nurse at a hospital that is run by a restorationism.
[2024-06-10] MEDS: LORazepam (*CRX) 0.5 MG TABLET PO (21:59)
[2024-06-11] VITALS (8 sets, daily range): BP systolic 112–152; BP diastolic 68–88; PULSE 76–90; RESP 18–26; TEMP 36–36.6; O2SAT 92–99
[2024-06-11] MEDS: LEVOTHYROXINE SODIUM 25 MCG TABLET PO (05:41)
[2024-06-11] MEDS: METOPROLOL SUCCINATE EXT REL 100 MG TABCR PO (08:58)
[2024-06-11] MEDS: ATORVASTATIN 20 MG TABLET PO (08:58)
[2024-06-11] MEDS: PANTOPRAZOLE 40 MG TABLET PO (08:58)
[2024-06-11] MEDS: buPROPion HCL XL (24 HR) 150 MG TABCR PO (08:59)
[2024-06-11] MEDS: DONEPEZIL HCL 5 MG TABLET PO (08:59)
[2024-06-11] MEDS: CYANOCOBALAMIN 1,000 MCG TABLET 5000 MCG PO (08:59)
[2024-06-11] MEDS: CHOLECALCIFEROL 1,000 UNITS TABLET 2000 UNITS PO (08:59)
[2024-06-11] MEDS: ASCORBIC ACID 500 MG TABLET PO (08:59)
[2024-06-11] MEDS: dilTIAZem HCL CD 180 MG CAP.24HR PO (08:59)
[2024-06-11] MEDS: DORZOLAMIDE HCL 2% OPHTH DROPS 1 DROP EACH EYE ×3 (09:00→16:36)
[2024-06-11] MEDS: ACETAMINOPHEN ELIXIR 325 MG/10.15 ML UDC 650 MG PO (09:33)
--- NOTE | 2024-06-11 11:04 | PC.NURSE ---
Patient transported to imaging for swallow study by patient transport.
--- NOTE | 2024-06-11 12:01 | P.PNIM_ITS ---
Progress Note: A&P Assessment and Plan (1) Pneumonia: Qualifiers: Laterality: bilateral Lung location: upper lobe of lung Pneumonia type: due to unspecified organism Qualified Code(s): J18.9 - Pneumonia, unspecified organism Code(s): J18.9 - Pneumonia, unspecified organism Status: Acute Assessment and Plan: * Failed doxycycline that was prescribed by PCP * CT of chest showing stable tree-in-bud opacities with biapical predominance, compatible with small airway infectious process * Levaquin, renal dosing initiated * patient is comfortable and not requiring oxygen * She is stable from medical standpoint and cirsis management can evaluate for i npatient psych (2) Suicidal ideations: Code(s): R45.851 - Suicidal ideations Status: Acute Assessment and Plan: * Continue one-to-one sitter * Continue bupropion XL 150 mg daily * Hold Cymbalta considering the combo of both Cymbalta and bupropion can increase the risk of seizures and pupil reacting can increase the blood levels of Cymbalta increasing the risk of further side effects. * Rexulti on hold as it is not formulary * Also taking Aricept for her dementia * Consider consulting psych to evaluate medications (3) Atrial fibrillation: Code(s): I48.91 - Unspecified atrial fibrillation Status: Acute Assessment and Plan: * Continue Cardizem, metoprolol extended release, Xarelto * Currently rate controlled * Cardiology following (4) Dysphagia: Code(s): R13.10 - Dysphagia, unspecified Status: Acute Assessment and Plan: * patient swallowing breakfast this morning without any difficulty and she noted no pain or difficulty swallowing * stable for inpatient psych eval * Plan DVT prophylaxis on Sq lovenox Stable for inpatient psych eval Subjective Date/time seen: 06/11/24 12:01 Interval history: Comfortable at bedside and was eating breakfast wcomfortably. Patient is stable for discharge from medical standpoint Review of Systems Review of Systems: All systems reviewed & are unremarkable except as noted in HPI and below Constitutional: Constitutional: Reports as per HPI and Reports no additional constitutional complaints Eyes: Eyes: Reports as per HPI and Reports no additional eye complaints ENT: Reports system reviewed and no additional complaints, except as documented and Reports as per HPI Cardiovascular: Cardiovascular: Reports as per HPI and Reports no additional cardiovascular complaints Respiratory: Respiratory: Reports as per HPI and Reports no additional respiratory complaints Gastrointestinal: Gastrointestinal: Reports as per HPI and Reports no additional gastrointestinal complaints Genitourinary: Genitourinary: Reports no additional female genitourinary complaints and Reports as per HPI Musculoskeletal: Musculoskeletal: Reports no additional musculoskeletal complaints and Reports as per HPI Integumentary/Breasts: Skin/Breast: Reports system reviewed and no additional complaints, except as docu and Reports as per HPI Neurologic: Reports system reviewed and no additional complaints, except as documented and Reports as per HPI Psychiatric: Psychiatric: Reports no additional psychiatric complaints and Reports as per HPI Exam Narrative: General: In no acute distress, well nourished Head: atraumatic, no encephalopathy Eyes: EOMI, PERRLA, sclera clear ENT: moist mucous membranes, nasal pa
--- NOTE | 2024-06-11 12:01 | PM.IMPN ---
Progress Note: A&P Assessment and Plan (1) Pneumonia: Qualifiers: Laterality: bilateral Lung location: upper lobe of lung Pneumonia type: due to unspecified organism Qualified Code(s): J18.9 - Pneumonia, unspecified organism Code(s): J18.9 - Pneumonia, unspecified organism Status: Acute Assessment and Plan: Failed doxycycline that was prescribed by PCP CT of chest showing stable tree-in-bud opacities with biapical predominance, compatible with small airway infectious process Levaquin, renal dosing initiated patient is comfortable and not requiring oxygen She is stable from medical standpoint and cirsis management can evaluate for inpatient psych (2) Suicidal ideations: Code(s): R45.851 - Suicidal ideations Status: Acute Assessment and Plan: Continue one-to-one sitter Continue bupropion XL 150 mg daily Hold Cymbalta considering the combo of both Cymbalta and bupropion can increase the risk of seizures and pupil reacting can increase the blood levels of Cymbalta increasing the risk of further side effects. Anilkelsigerardo on hold as it is not formulary Also taking Aricept for her dementia Consider consulting psych to evaluate medications (3) Atrial fibrillation: Code(s): I48.91 - Unspecified atrial fibrillation Status: Acute Assessment and Plan: Continue Cardizem, metoprolol extended release, Xarelto Currently rate controlled Cardiology following (4) Dysphagia: Code(s): R13.10 - Dysphagia, unspecified Status: Acute Assessment and Plan: patient swallowing breakfast this morning without any difficulty and she noted no pain or difficulty swallowing stable for inpatient psych eval Plan DVT prophylaxis on Sq lovenox Stable for inpatient psych eval Subjective Date/time seen: 06/11/24 12:01 Interval history: Comfortable at bedside and was eating breakfast wcomfortably. Patient is stable for discharge from medical standpoint Review of Systems Review of Systems: All systems reviewed & are unremarkable except as noted in HPI and below Constitutional: Constitutional: Reports as per HPI and Reports no additional constitutional complaints Eyes: Eyes: Reports as per HPI and Reports no additional eye complaints ENT: Reports system reviewed and no additional complaints, except as documented and Reports as per HPI Cardiovascular: Cardiovascular: Reports as per HPI and Reports no additional cardiovascular complaints Respiratory: Respiratory: Reports as per HPI and Reports no additional respiratory complaints Gastrointestinal: Gastrointestinal: Reports as per HPI and Reports no additional gastrointestinal complaints Genitourinary: Genitourinary: Reports no additional female genitourinary complaints and Reports as per HPI Musculoskeletal: Musculoskeletal: Reports no additional musculoskeletal complaints and Reports as per HPI Integumentary/Breasts: Skin/Breast: Reports system reviewed and no additional complaints, except as docu and Reports as per HPI Neurologic: Reports system reviewed and no additional complaints, except as documented and Reports as per HPI Psychiatric: Psychiatric: Reports no additional psychiatric complaints and Reports as per HPI Exam Narrative: General: In no acute distress, well nourished Head: atraumatic, no encephalopathy Eyes: EOMI, PERRLA, sclera clear ENT: moist mucous membranes, nasal passages clear, reports difficulty swallowing Neck: supple, no JVD, no adenopathy, trachea midline Cardiac: Normal S1 and S2. Irregular rate and rhythm No murmur, gallops or friction rubs, peripheral pulses intact. Respiratory: Inspiratory wheeze right greater than left, currently on room air, no acute respiratory distress seen Gastrointestinal: soft, non-distended, non-tender, normoactive bowel sounds. : voiding without difficulty. Extremities: moves all extremities well, no edema, good ROM, strength 5/5
--- NOTE | 2024-06-11 13:10 | PCSTNOTE ---
Please refer to the Modified Barium Swallow Evaluation in the EMR.
[2024-06-11 14:01] LABS: Influenza A QL RT-PCR Negative (Negative); Influenza B QL RT-PCR Negative (Negative); RSV RNA, RT-PCR Negative (Negative); SARS-CoV-2 RNA PCR Negative (Negative)
--- NOTE | 2024-06-11 16:06 | PCCCNOTE ---
1606-Called to the pt's room to discuss home health care options. Upon further discussion the pt would not qualify for any nursing skilled care. Stated the family previously was looking at placement at [facility] and would be able to afford the $7,000/month for a private room. Called Ning with [facility] and verified they do have a bed availability and would be able to get the pt in as soon as 10.6.24. Family is aware of the placement options. PASSR completed.
[2024-06-11] MEDS: RIVAROXABAN 20 MG TABLET PO (16:36)
--- NOTE | 2024-06-11 18:26 | PC.NURSE ---
Family called at 1808. Spoke to Mally (Daughter), stated they wanted patient to go to [facility] on discharge. Called and updated manager intensive care. aware. Care coordination to speak with [facility].
--- NOTE | 2024-06-11 18:31 | PCCCNOTE ---
9410-Received a call from the pt's Nurse. Stated the family wanted to proceed with placement at [facility]. Stated family has left the pt's bedside for the evening. Called Ning with the facility and [facility] at [phone] to solidify this plan/admission to facility.-sanjeev.
[2024-06-11] MEDS: levoFLOXacin 750 MG TABLET PO (20:18)
[2024-06-11] MEDS: prednisoLONE ACETATE 1% OPHTH 5 ML 1 DROP LEFT EYE (20:18)
[2024-06-11] MEDS: ERYTHROMYCIN OPHTH OINTMENT 1 GM TUBE 1 APPLIC LEFT EYE (20:19)
[2024-06-11] MEDS: LORazepam (*CRX) 0.5 MG TABLET PO (20:36)
[2024-06-12 03:48] LABS: Basophils Percent Auto 0.4 % (0.2-1.2); Eosinophils Absolute Auto 0.2 K/mm3 (0-0.3); Eosinophils Percent Auto 2.4 % (0-4.4); Hematocrit 42.7 % (37.0-47.0); Hemoglobin 14.3 g/dL (12.0-15.0); Immature Granulocyte Absolute 0.04 K/mm3 (0.00-0.031); Immature Granulocyte Percent A 0.6 % (0-0.5); Lymphocytes Absolute Auto 1.05 K/mm3 (0.9-3.2); Lymphocytes Percent Auto 15.1 % (18.3-44.2); Mean Corpuscular HGB Conc 33.5 g/dl (32-36); Mean Corpuscular Hemoglobin 34.2 pg (26-34); Mean Corpuscular Volume 102.2 fl (80-100); Mean Platelet Volume 9.8 fl (7.4-10.4); Monocytes Absolute Auto 1.1 K/mm3 (0.1-0.6); Monocytes Percent Auto 15.5 % (2.6-8.5); Neutrophils Absolute Auto 4.6 K/mm3 (1.3-6.7); Platelet Count Result 223 k/mm3 (150-375); Red Blood Count 4.18 M/mm3 (4.2-5.4); Red Cell Distribution Width 12.5 % (11.5-14.5)
[2024-06-12 04:04] LABS: Alanine Aminotransferase 76 U/L (6-35); Albumin Level 3.5 g/dL (3.5-5.1); Alkaline Phosphatase 286 U/L (38-126); Anion Gap 8 mmol/L (4-12); Aspartate Amino Transferase 61 U/L (14-36); Bilirubin,Total 1.4 mg/dL (0.2-1.3); Blood Urea Nitrogen 15 mg/dL (7-17); Carbon Dioxide 31 mmol/L (22-30); Chloride 96 mmol/L (98-107); Estimated CRCL calculation 42 ml/min; Estimated Glomerular Filt Rate > 60; Glucose 132 mg/dL (65-110); Magnesium 1.2 mg/dL (1.6-2.3); Potassium 3.9 mmol/L (3.4-5.0); Sodium 135 mmol/L (137-145)
[2024-06-12 06:00] VITALS: BP 138/82; PULSE 77; RESP 20; TEMP 36.5; O2SAT 97
[2024-06-12] MEDS: LEVOTHYROXINE SODIUM 25 MCG TABLET PO (06:28)
[2024-06-12 07:34] VITALS: O2SAT 95
[2024-06-12] MEDS: CYANOCOBALAMIN 1,000 MCG TABLET 5000 MCG PO (08:59)
[2024-06-12] MEDS: DONEPEZIL HCL 5 MG TABLET PO (08:59)
[2024-06-12] MEDS: ASCORBIC ACID 500 MG TABLET PO (08:59)
[2024-06-12] MEDS: ATORVASTATIN 20 MG TABLET PO (08:59)
[2024-06-12] MEDS: PANTOPRAZOLE 40 MG TABLET PO (08:59)
[2024-06-12 09:00] VITALS: PULSE 102
[2024-06-12] MEDS: DORZOLAMIDE HCL 2% OPHTH DROPS 1 DROP EACH EYE ×3 (09:00→16:07)
[2024-06-12] MEDS: METOPROLOL SUCCINATE EXT REL 100 MG TABCR PO (09:00)
[2024-06-12] MEDS: dilTIAZem HCL CD 180 MG CAP.24HR PO (09:00)
[2024-06-12] MEDS: buPROPion HCL XL (24 HR) 150 MG TABCR PO (09:00)
[2024-06-12] MEDS: CHOLECALCIFEROL 1,000 UNITS TABLET 2000 UNITS PO (09:00)
[2024-06-12 12:22] VITALS: BP 115/74; PULSE 60; RESP 18; TEMP 36.5; O2SAT 93
--- NOTE | 2024-06-12 14:10 | PM.IMPN ---
Progress Note: A&P Assessment and Plan (1) Pneumonia: Qualifiers: Laterality: bilateral Lung location: upper lobe of lung Pneumonia type: due to unspecified organism Qualified Code(s): J18.9 - Pneumonia, unspecified organism Code(s): J18.9 - Pneumonia, unspecified organism Status: Acute Assessment and Plan: Failed doxycycline that was prescribed by PCP CT of chest showing stable tree-in-bud opacities with biapical predominance, compatible with small airway infectious process Continue Levaquin patient on room air (2) Suicidal ideations: Code(s): R45.851 - Suicidal ideations Status: Acute Assessment and Plan: Crises management evaluated and noted that patient has Dementia and thus not a candidate for suicide eval continue monitoring (3) Atrial fibrillation: Code(s): I48.91 - Unspecified atrial fibrillation Status: Acute Assessment and Plan: Continue Cardizem, metoprolol extended release, Xarelto Currently rate controlled Cardiology following (4) Dysphagia: Code(s): R13.10 - Dysphagia, unspecified Status: Acute Assessment and Plan: patient swallowing breakfast this morning without any difficulty and she noted no pain or difficulty swallowing stable for inpatient psych eval Plan DVT prophylaxis on Sq lovenox Patient awaiting placement Subjective Date/time seen: 06/12/24 14:10 Interval history: Patient comfortable at bedside and awaiting placement Exam Narrative: General: In no acute distress, well nourished Head: atraumatic, no encephalopathy Eyes: EOMI, PERRLA, sclera clear ENT: moist mucous membranes, nasal passages clear, reports difficulty swallowing Neck: supple, no JVD, no adenopathy, trachea midline Cardiac: Normal S1 and S2. Irregular rate and rhythm No murmur, gallops or friction rubs, peripheral pulses intact. Respiratory: Inspiratory wheeze right greater than left, currently on room air, no acute respiratory distress seen Gastrointestinal: soft, non-distended, non-tender, normoactive bowel sounds. : voiding without difficulty. Extremities: moves all extremities well, no edema, good ROM, strength 5/5 Skin: clean, dry, intact. No wounds or lesions. Neuro: Alert and oriented x3, confused at times, cranial nerves intact, no neuro deficits. Psych: Confused at times Objective Data Vital Signs Vital Signs: Vital Signs - 24 hr 06/11/24 20:37 06/11/24 20:00 06/11/24 21:33 Temperature 97.5 F L Pulse Rate 83 Respiratory Rate 24 H Blood Pressure 125/68 Pulse Oximetry 93 93 93 Oxygen Delivery Room Air Room Air 06/12/24 06:00 06/12/24 09:00 06/12/24 07:34 Temperature 97.7 F Pulse Rate 77 102 H Respiratory Rate 20 Blood Pressure 138/82 Pulse Oximetry 97 95 Oxygen Delivery Room Air 06/12/24 08:00 06/12/24 12:22 Temperature 97.7 F Pulse Rate 60 Respiratory Rate 18 Blood Pressure 115/74 Pulse Oximetry 93 Oxygen Delivery Room Air Intake/Output Intake/Output: Intake & Output 06/09/24 06/10/24 06/11/24 06/12/24 23:59 23:59 23:59 23:59 Intake Total 930 620 120 Output Total 950 800 850 Balance -20 -180 -730 Meds/Results Medications: Active Medications Generic Name Dose Route Start Last Admin Trade Name Freq PRN Reason Stop Dose Admin Ascorbic Acid 500 mg 06/11/24 09:00 06/12/24 08:59 Ascorbic Acid 500 Mg Tablet PO 500 mg DAILY GURMEET Administration Atorvastatin Calcium 20 mg 06/11/24 09:00 06/12/24 08:59 Atorvastatin 20 Mg Tablet PO 20 mg DAILY GURMEET Administration Bupropion HCl 150 mg 06/11/24 09:00 06/12/24 09:00 Bupropion Hcl Xl (24 Hr) 150 Mg Tabcr PO 150 mg DAILY GURMEET Administration Cyanocobalamin 5,000 mcg 06/11/24 09:00 06/12/24 08:59 Cyanocobalamin 1,000 Mcg Tablet PO 5,000 mcg DAILY GURMEET Administration Diltiazem HCl 180 mg 06/10/24 10:50 06/12/24 09:00 Diltiazem Hcl Cd 180
[2024-06-12] MEDS: MINERAL OIL/WHITE PETROLATUM OINTMENT 1 APPLIC EACH EYE (15:01)
[2024-06-12] MEDS: RIVAROXABAN 20 MG TABLET PO (16:06)
[2024-06-12 20:00] VITALS: BP 122/75; PULSE 68; RESP 20; O2SAT 97
[2024-06-12] MEDS: prednisoLONE ACETATE 1% OPHTH 5 ML 1 DROP LEFT EYE (20:28)
[2024-06-12] MEDS: ERYTHROMYCIN OPHTH OINTMENT 1 GM TUBE 1 APPLIC LEFT EYE (20:30)
[2024-06-13 04:54] LABS: Basophils Percent Auto 0.5 % (0.2-1.2); Eosinophils Absolute Auto 0.2 K/mm3 (0-0.3); Eosinophils Percent Auto 1.8 % (0-4.4); Hematocrit 44.1 % (37.0-47.0); Hemoglobin 14.8 g/dL (12.0-15.0); Immature Granulocyte Absolute 0.03 K/mm3 (0.00-0.031); Immature Granulocyte Percent A 0.3 % (0-0.5); Lymphocytes Absolute Auto 1.15 K/mm3 (0.9-3.2); Lymphocytes Percent Auto 13.3 % (18.3-44.2); Mean Corpuscular HGB Conc 33.6 g/dl (32-36); Mean Corpuscular Hemoglobin 34.5 pg (26-34); Mean Corpuscular Volume 102.8 fl (80-100); Mean Platelet Volume 9.8 fl (7.4-10.4); Monocytes Absolute Auto 1.2 K/mm3 (0.1-0.6); Monocytes Percent Auto 13.4 % (2.6-8.5); Neutrophils Absolute Auto 6.1 K/mm3 (1.3-6.7); Neutrophils Percent Auto 70.7 % (45.5-73.1); Platelet Count Result 241 k/mm3 (150-375); Red Blood Count 4.29 M/mm3 (4.2-5.4); Red Cell Distribution Width 12.6 % (11.5-14.5); White Blood Count 8.7 K/mm3 (4.5-10.0)
[2024-06-13 05:09] LABS: Alanine Aminotransferase 80 U/L (6-35); Albumin Level 4.1 g/dL (3.5-5.1); Alkaline Phosphatase 304 U/L (38-126); Anion Gap 10 mmol/L (4-12); Aspartate Amino Transferase 96 U/L (14-36); Bilirubin,Total 1.8 mg/dL (0.2-1.3); Blood Urea Nitrogen 13 mg/dL (7-17); Calcium 9.4 mg/dL (8.4-10.2); Carbon Dioxide 29 mmol/L (22-30); Chloride 98 mmol/L (98-107); Estimated CRCL calculation 42 ml/min; Estimated Glomerular Filt Rate > 60; Glucose 162 mg/dL (65-110); Magnesium 1.5 mg/dL (1.6-2.3); Potassium 4.5 mmol/L (3.4-5.0); Sodium 137 mmol/L (137-145)
[2024-06-13 05:33] VITALS: BP 134/88; PULSE 75; RESP 17; TEMP 36.3; O2SAT 96
[2024-06-13] MEDS: LEVOTHYROXINE SODIUM 25 MCG TABLET PO (06:58)
[2024-06-13 08:38] LABS: Hepatitis B Surface Antigen Negative (Negative)
[2024-06-13 08:44] LABS: HAV RESULT Negative (Negative); Hepatitis B Core IgM Result Negative (Negative)
[2024-06-13 08:55] LABS: Hepatitis C Virus Antibody Negative (Negative)
[2024-06-13] MEDS: CHOLECALCIFEROL 1,000 UNITS TABLET 2000 UNITS PO (09:00)
[2024-06-13] MEDS: CYANOCOBALAMIN 1,000 MCG TABLET 5000 MCG PO (09:00)
[2024-06-13] MEDS: METOPROLOL SUCCINATE EXT REL 100 MG TABCR PO (09:00)
[2024-06-13] MEDS: DONEPEZIL HCL 5 MG TABLET PO (09:00)
[2024-06-13] MEDS: dilTIAZem HCL CD 180 MG CAP.24HR PO (09:01)
[2024-06-13] MEDS: buPROPion HCL XL (24 HR) 150 MG TABCR PO (09:01)
[2024-06-13] MEDS: PANTOPRAZOLE 40 MG TABLET PO (09:01)
[2024-06-13] MEDS: ATORVASTATIN 20 MG TABLET PO (09:01)
[2024-06-13] MEDS: ASCORBIC ACID 500 MG TABLET PO (09:01)
[2024-06-13] MEDS: DORZOLAMIDE HCL 2% OPHTH DROPS 1 DROP EACH EYE (09:12)
--- NOTE | 2024-06-13 11:46 | PM.DS ---
DS: Admitting Diagnosis Discharge Date 06/13/24 Admitting Diagnosis SOB and suicidal ideation DS: Discharge Diagnosis Discharge Diagnosis (1) Suicidal ideations: Code(s): R45.851 - Suicidal ideations Status: Acute (2) Pneumonia: Qualifiers: Laterality: bilateral Lung location: upper lobe of lung Pneumonia type: due to unspecified organism Qualified Code(s): J18.9 - Pneumonia, unspecified organism Code(s): J18.9 - Pneumonia, unspecified organism Status: Acute DS: Summary Hospital Course Hospital Course: This is an 79-year-old female with a significant past medical history of hypertension, type 2 diabetes mellitus, diastolic heart failure, AFib, peripheral vascular disease, stroke, carotid artery stenosis who presents to the hospital with complaints of shortness of breath/dyspnea that has worsened over the last couple of days. Patient also stated in the ER that she wanted to kill herself. Patient reported that she is feeling very depressed and feels like her health has declined as well as her independence. She states that she is felt this way for about a month or more. She denies having any plan to follow through with any suicidal ideations but has thought about it more than once. She was somewhat tearful when talking about her loss of independence. She states she is not able to do which she likes to do. Patient is currently 1-1 with suicide sitter and is technically medically cleared for psych evaluation. She denies any fever, chills, nausea, vomiting, diarrhea, abdominal pain, chest pain. She does report shortness of breath. She also reported trouble swallowing that has been ongoing for quite some time. She states that she feels like things are getting stuck in her throat or Will go down. I will go ahead and get GI involved while we are waiting psych evaluation. She was supposed to have a barium swallow done next week to evaluate this swallowing issue. She was recently seen at her primary care office and was diagnosed with pneumonia and started on doxycycline which she finished a 10 day course. Workup in the hospital included a CT of the chest which showed stable tree-in-bud opacities with biapical predominance compatible with small airway infectious process, stable compression deformities of T9 and L1. Initial labs showed a normal white blood cell count of 9.3, hemoglobin 16.4, hematocrit 48.6, sodium 134, chloride 96, lactic acid 1.9, total bili 2.0, AST 110, ALT 130, alk-phos 356, proBNP 970, troponin negative x2. MRSA was not detected. Blood cultures were obtained and pending. EKG showing atrial fibrillation with a rate of 99. Patient was given a dose of vancomycin and Levaquin while in the ED. since MRSA was negative she was started on monotherapy with just Levaquin oral dosing. Patient was managed with Levaquin and she has continued to make marked improved> was noted to have diffculty swallowing however the last 2 days she is eating okay with no complaints. Will complete 5 days of Levaquin. Crisis management were consultd and they noted that patient is not at risk of self harm and since she has Dementia she cannot be held credible for suicidal ideation. Family decided to have patient placed to memory care unit. she is discharged today to memory care unit however she will continue with PT/OT/ST. F/u with PCP in 3-5 days Assessment and Plan (1) Pneumonia: Qualifiers: Laterality: bilateral Lung location: upper lobe of lung Pneumonia type: due to unspecified organism Qualified Code(s): J18.9 - Pneumonia, unspecified organism Code(s): J18.9 - Pneumonia, unspecified organism Status: Acute Assessment and Plan: Failed doxycycline that was prescribed by PCP CT of chest showing stable tree-in-bud opacities with biapical predominance, compatible with small airway infectious process Complete levaquin as stated above (2) Suicidal ideations: Code(s):
--- NOTE | 2024-06-13 12:29 | PC.NURSE ---
Report called to Adriana at [facility] in [place], [place] @ [phone]. Discharge packet faxed @ [phone]
[2024-06-13] MEDS: ONDANSETRON INJ 4 MG/2 ML VIAL IV PUSH (12:42)
== END 2024-06-13 12:55 ==
LOC: ANHED 06-10 04:12 → ANHICU 06-10 08:21 → ANH3MEDSUR 06-14 07:39 → ANHICU 06-14 07:39
PROVIDERS: Emergency Medicine; Nurse Practitioner Acute Care; Admitting Provider Internal Medicine; Emergency Provider Physician Assistant; PCP Family Medicine; Visit Provider Internal Medicine
DX: J18.9 Pneumonia, unspecified organism (principal); I48.91 Unspecified atrial fibrillation; R13.10 Dysphagia, unspecified; R45.851 Suicidal ideations; R74.01 Elevation of levels of liver transaminase levels; I11.9 Hypertensive heart disease without heart failure; E11.51 Type 2 diabetes mellitus with diabetic peripheral angiopathy without gangrene; I65.23 Occlusion and stenosis of bilateral carotid arteries; F32.A Depression, unspecified; K21.9 Gastro-esophageal reflux disease without esophagitis; E03.9 Hypothyroidism, unspecified; E78.2 Mixed hyperlipidemia; E11.42 Type 2 diabetes mellitus with diabetic polyneuropathy; E55.9 Vitamin D deficiency, unspecified; Z86.73 Personal history of transient ischemic attack (TIA), and cerebral infarction without residual deficits; Z79.84 Long term (current) use of oral hypoglycemic drugs; Z79.01 Long term (current) use of anticoagulants; Z20.822 Contact with and (suspected) exposure to COVID-19
CPT/HCPCS: 36415; 71046; 71250; 80053; 80074; 81001; 82803; 83605; 83735; 83880; 84484; 85025; 87040; 87637; 87641; 92611; 93005; 96365; 97161; 97165; 99285; A9270; G0378; J1956; J2405; J3370

== ENCOUNTER 2024-08-18 14:06 | Outpatient (CLI) | payer MEDICARE, SELFPAY ==
--- NOTE | ~2024-08-18 | MR_ITS ---
EXAMINATION: MR brain/brain stem wo con DATE: 08/18/2024 14:49 INDICATION: Personal history of other healed physical injury. TECHNIQUE: Magnetic resonance imaging (MRI) of the brain and brainstem was performed without intraven ous contrast. COMPARISON: Brain MRI 06/30/2007 FINDINGS: There is no intracranial hemorrhage, acute infarction, or abnormal intracranial mass lesion . There are old infarcts in the bilateral cerebellum. There are old infarcts in the right frontal, pa rietal, and occipital lobes, left occipital lobe, and bilateral thalami. There are scattered areas of nonspecific increased T2-weighted signal intensity in the cerebral white matter, which is within nor mal limits for the patient's age. The ventricles are normal in size. There are likely changes of ocul ar lens replacement surgeries. There is a right mastoid effusion. The paranasal sinuses are clear. IMPRESSION: 1. Multiple old infarcts in the brain. Reviewed, dictated and finalized at location A. [facility]
== END 2024-08-18 14:07 | disposition home or self-care (01) ==
PROVIDERS: PCP Family Medicine; Visit Provider Psychiatry & Neurology Neurology
DX: I48.91 Unspecified atrial fibrillation (principal); E11.8 Type 2 diabetes mellitus with unspecified complications; I73.9 Peripheral vascular disease, unspecified; F03.90 Unspecified dementia, unspecified severity, without behavioral disturbance, psychotic disturbance, mood disturbance, and anxiety; Z87.828 Personal history of other (healed) physical injury and trauma; Z86.73 Personal history of transient ischemic attack (TIA), and cerebral infarction without residual deficits
CPT/HCPCS: 70551

== ENCOUNTER 2024-08-19 10:26 | Outpatient (CLI) | payer MEDICARE, SELFPAY ==
--- NOTE | 2024-08-22 10:13 | WPDNEUROLOGY ---
Neurology EEG Report General Information Date of Study: 08/19/24 TEST Electroencephalogram CONDITION OF RECORDING neurodiagnostic lab EEG NUMBER [id number] CLINICAL HISTORY History of difficulty with memory and stroke EEG DESCRIPTION During wakefulness the background activity consists of were posterior dominant rhythm in theta range at approximately 6 hertz with an amplitude of 15-30 microvolts. Anteriorly low amplitude mixed frequency activity was seen. There is no significant anteroposterior gradient. Hyperventilation was not performed. Patient did not progress to stage 2 sleep. Photic stimulation was performed during which no significant abnormal background changes were seen. IMPRESSION This is an abnormal EEG due to presence of moderate diffuse background slowing suggestive of generalized encephalopathy. No focal or paroxysmal abnormality was seen.
== END 2024-08-19 10:27 | disposition home or self-care (01) ==
LOC: ANHNEURO 10:29
PROVIDERS: PCP Family Medicine; Visit Provider Psychiatry & Neurology Neurology
DX: R94.01 Abnormal electroencephalogram [EEG] (principal); F03.90 Unspecified dementia, unspecified severity, without behavioral disturbance, psychotic disturbance, mood disturbance, and anxiety
CPT/HCPCS: 95816